=== PATIENT | female | born 1995 | race Caucasian/White ===

== ENCOUNTER 2023-11-15 23:03 | Emergency (ER) | payer OTHER, SELFPAY ==
[2023-11-15 23:05] VITALS: BP 144/94; PULSE 94; RESP 16; TEMP 36.8; O2SAT 100
--- NOTE | 2023-11-15 23:42 | ED.DENTAL ---
HPI - Dental/Oral General Chief complaint: Dental/Oral <LOU Goddard Last Filed: 11/16/23 00:22> Stated complaint: right side facial swelling and pain <LOU Goddard Last Filed: 11/16/23 00:22> Time Seen by Provider: 11/15/23 23:16 <Tito Boyd PA-C - Last Filed: 11/16/23 00:22> Source: patient <LOU Goddard Last Filed: 11/16/23 00:22> Mode of arrival: ambulatory <Tito Boyd PA-C - Last Filed: 11/16/23 00:22> Limitations: no limitations <LOU Goddard Last Filed: 11/16/23 00:22> History of Present Illness HPI Narrative: This is a 28-year-old female who presents to the ED for chief complaint of right-sided dental/facial pain beginning earlier this evening. Patient reports that she had noticed some swelling on the right side associated with pain to right upper dentition. States she took Tylenol around 2100 with minimal relief. Denies fevers, chills, drooling, trismus, dysphagia. <Tito Boyd PA-C - Last Filed: 11/16/23 00:22> Related Data Allergies/adverse reactions: Allergies Allergy/AdvReac Type Severity Reaction Status Date / Time No Known Allergies Allergy Verified 11/15/23 23:12 <Tito Boyd PA-C - Last Filed: 11/16/23 00:22> Review of Systems Review of Systems: All systems as dictated in HPI <LOU Goddard Last Filed: 11/16/23 00:22> PMFSH Social History Social History: Social History Smoking status: Never smoker <LOU Goddard Last Filed: 11/16/23 00:22> Exam Narrative: GENERAL: Well-appearing, well-nourished, and in no acute distress. HEAD: Normocephalic, atraumatic. EYES: PERRLA and EOMI. ENT: Missing right lower premolar. Several minor caries noted to the right upper and right lower molars. No discrete abscess identified. No drooling. No trismus. Floor of the mouth intact. Nares clear, no rhinorrhea or epistaxis. Mucous membranes moist. Oropharynx without tonsillar hypertrophy exudate or other lesions. NECK: Supple. No adenopathy or masses. CHEST: No respiratory distress. Clear to auscultation. No wheezes rales or rhonchi HEART: Regular rate and rhythm. No murmur heard. Normal peripheral pulses. ABDOMEN: Soft, nontender, nondistended, normal active bowel sounds. MSK: Normal range of motion. No edema. SKIN: Warm, dry, no rash. NEURO: Alert and oriented x3. No focal deficits. PSYCH: Normal mood and affect. <Tito Boyd PA-C - Last Filed: 11/16/23 00:22> Course [employer]IST/PA Physician Supervision I agree with midlevel documentation; I performed the medical decision making component of this evaluation. <Rolanda Oviedo MD - Last Filed: 11/16/23 01:05> Vital Signs Vital signs: Vital Signs Temperature 98.3 F 11/15/23 23:05 Pulse Rate 94 11/15/23 23:05 Respiratory Rate 16 11/15/23 23:05 Blood Pressure 144/94 H 11/15/23 23:05 Pulse Oximetry 100 11/15/23 23:05 Oxygen Delivery Room Air 11/15/23 23:05 Temperature 98.3 F 11/15/23 23:05 Pulse Rate 94 11/15/23 23:05 Respiratory Rate 16 11/15/23 23:05 Blood Pressure 144/94 H 11/15/23 23:05 Pulse Oximetry 100 11/15/23 23:05 Oxygen Delivery Room Air 11/15/23 23:05 <Tito Boyd PA-C - Last Filed: 11/16/23 00:22> Vital Signs Temperature 98.3 F 11/15/23 23:05 Pulse Rate 94 11/15/23 23:05 Respiratory Rate 16 11/15/23 23:05 Blood Pressure 144/94 H 11/15/23 23:05 Pulse Oximetry 100 11/15/23 23:05 Oxygen Delivery Room Air 11/15/23 23:05 Temperature 98.3 F 11/15/23 23:05 Pulse Rate 94 11/15/23 23:05 Respiratory Rate 16 11/15/23 23:05 Blood Pressure 144/94 H 11/15/23 23:05 Pulse Oximetry 100 11/15/23 23:05 Oxygen Delivery Room Air 11/15/23 23:05 <Rolanda Oviedo MD - Last Filed: 11/16/23 01:05> MDM - Dental/Oral MDM Narrative Medical decision making narrative: This is a 28-year-old female who presents to the ED wi
[2023-11-15] MEDS: AMOXICILLIN/CLAVULANATE K 875-125 MG TAB 1 TABLET PO (23:54)
[2023-11-15] MEDS: KETOROLAC 30 MG/ML VIAL (*BKC) IM (23:54)
== END 2023-11-15 23:57 | disposition home or self-care (01) ==
PROVIDERS: Emergency Provider Physician Assistant
DX: K02.9 Dental caries, unspecified (principal)
CPT/HCPCS: 96372; 99283; A9270; J1885

== ENCOUNTER 2023-12-13 19:01 | Emergency (ER) | payer OTHER, SELFPAY ==
[2023-12-13 19:02] VITALS: BP 134/85; PULSE 85; RESP 20; TEMP 36.4; O2SAT 98
--- NOTE | 2023-12-13 19:24 | ED.DENTAL ---
HPI - Dental/Oral General Chief complaint: Dental/Oral Stated complaint: tooth pain Time Seen by Provider: 12/13/23 19:09 History of Present Illness HPI Narrative: Patient is a 20-year-old female who presents ER with 3 days of dental pain. Radiating to left ear. Worse with chewing. No drainage in the mouth. No fevers or chills or sweats. Cannot see her dentist until the end of the month. No improvement with Tylenol or ibuprofen. Related Data Allergies Allergy/AdvReac Type Severity Reaction Status Date / Time No Known Allergies Allergy Verified 12/13/23 19:01 Review of Systems Constitutional: Constitutional: Reports no additional constitutional complaints ENT: Reports system reviewed and no additional complaints, except as documented PMFSH Past Medical History Medical History (Updated 12/13/23 @ 19:38 by Estiven Hutchinson MD) Healthy female adult Social History Social History Smoking status: Never smoker Exam Narrative: GENERAL: Well-appearing, well-nourished, and in no acute distress. HEAD: Normocephalic, atraumatic. ENT: Mucous membranes moist. mild tenderness near tooth 16. No facial swelling. Tolerating oral secretions. NECK: Supple. NEURO: Alert and oriented x3. PSYCH: Normal mood and affect. Course Course Emergency Course: Discharged with Augmentin and [place]. Follow-up with dentist. Vital Signs Vital signs: Vital Signs Temperature 97.5 F L 12/13/23 19:02 Pulse Rate 85 12/13/23 19:02 Respiratory Rate 20 12/13/23 19:02 Blood Pressure 134/85 12/13/23 19:02 Pulse Oximetry 98 12/13/23 19:02 Oxygen Delivery Room Air 12/13/23 19:02 Temperature 97.5 F L 12/13/23 19:02 Pulse Rate 85 12/13/23 19:02 Respiratory Rate 20 12/13/23 19:02 Blood Pressure 134/85 12/13/23 19:02 Pulse Oximetry 98 12/13/23 19:02 Oxygen Delivery Room Air 12/13/23 19:02 Discharge Plan Discharge Clinical Impression: Toothache Patient Disposition: Home, Self-Care Condition: Stable Instructions: Antibiotic Form, Toothache (ED) Additional Instructions: Return the ER if you have worsening pain, you cannot keep down food/water/ medication, you have fever over 104? F, or you have additional concerns. Prescriptions: New hydrocodone-acetaminophen 5-325 mg tablet 1 tablet PO Q6H PRN (Reason: pain) Qty: 10 0RF amoxicillin-pot clavulanate 875-125 mg tablet 1 tablet PO Q12H Qty: 20 0RF No Action amoxicillin-pot clavulanate 875-125 mg tablet 1 tablet PO Q12H Qty: 10 0RF Follow-up/Referrals: Dental Referral Line [Outside] - 1 Week UNKNOWN,DOCTOR [Non-Staff] -
== END 2023-12-13 19:58 | disposition home or self-care (01) ==
PROVIDERS: Emergency Provider Emergency Medicine; PCP Internal Medicine
DX: K08.89 Other specified disorders of teeth and supporting structures (principal)
CPT/HCPCS: 99283

== ENCOUNTER 2025-04-18 13:52 | Observation (INO) | payer MEDICAID, SELFPAY ==
[2025-04-18] VITALS (8 sets, daily range): BP systolic 129–135; BP diastolic 75–89; PULSE 90–113; RESP 20–29; TEMP 36.7–36.9; O2SAT 98–100; BMI 30.4
--- NOTE | ~2025-04-18 | CT_ITS ---
EXAMINATION: CT facial bones w con COMPARISON: None HISTORY: Evaluation for dental abscess TECHNIQUE: Axial images were obtained with IV contrast. Sagittal, coronal reconstruction images were obtained from the axial views. Omnipaque 370, [address] scan performed using dose optimization techniques including the following automated exposure control; adjustment of mA and/or kV; use of iterative reconstruction technique. Automatic exposure control was used to reduce radiation dose. Permanent radiation dose record is archived to PACS. FINDINGS: The nasal bones are intact. Anterior maxillary sinus chaudhary, zygomatic arches and temporomandibular joints intact. Orbital floors and medial orbits are intact. Right maxillary sinus mucous retention cyst 2 x 2 cm. The visualized brain parenchyma appears unremarkable. Visualized optic globes are unremarkable. There is no thickening of the prevertebral space or asymmetry of the airway. The visualized submandibular and parotid glands unremarkable. No gross thyroid nodules. No lymphadenopathy. There is no gross subcutaneous stranding or soft tissue abscess. There are some prominent right paranasal submandibular lymph nodes noted. There is dental disease most marked involving the mandible bilaterally IMPRESSION: There is no dental soft tissue abscess identified. There is however significant dental disease and follow-up is suggested to assess as clinically warranted. Reviewed, dictated and finalized at location A.
--- OUTSIDE RECORDS SUMMARY | 2025-04-18 13:54 | XMS_ITS | Clinical Summary ---
Author Organization [facility] Address [address] [place] [address] Care Team Providers Care Vending Attendant Name Role Phone Lamont Pete MD Primary Care Provider Cande Farooq MD Unavailable [phone] Allergies No known active allergies Medications etonogestrel (NEXPLANON) 68 mg implantIndication s: Contraception Active Contour Next Test Strips stripIndications: type 1 diabetes mellitus TEST BLOOD SUGAR 4-6 TIMES DAILY. USE WITH INSULIN PUMP COMPATIBLE GLUCOMETER. THE CONTOUR LINK BLOOD GLUCOSE METER IS THE ONLY METER THAT IS FDA APPROVED FOR USE WITH THE [employer] 670G SYSTEM. 200 strip 5 05/25/20 22 Active blood-glucose sensor (Dexcom G6 Sensor) deviceIndications :type 2 diabetes mellitus 1 Device continuously Use to check glucose level continuously; change every 10 days. E10.65 9 each 3 08/29/19 23 Active Additional Information Patient not taking.Reported on 10/16/2023 blood-glucose transmitter (Dexcom G6 Transmitter) deviceIndications :type 2 diabetes mellitus 1 Device continuously USE DEVICE CONTINUOUSLY; change every 90 days. E10.65 1 each 08/29/19 23 Active Additional Information Patient not taking.Reported on 10/16/2023 ziprasidone (GEODON) 40 mg capsule Take by mouth daily Patient will start once the 20mg is gone 11/12/19 23 Active albuterol HFA (PROVENTIL HFA,VENTOLIN HFA,PROAIR HFA) 90 mcg/actuation inhaler Inhale 2 puffs every 6 (six) hours as needed for wheezing 07/03/20 23 Active Additional Information Patient not taking.Reported on 10/16/2023 insulin lispro (HumaLOG) 100 unit/mL vial for injection INJECT 133 UNITS UNDER THE SKIN DAILY, MAX DOSE OF INSULIN PUMP THERAPY 40 mL 4 12/13/19 24 Active escitalopram (LEXAPRO) 10 mg tablet TAKE 1 TABLET BY MOUTH EVERY DAY AT NIGHT 90 tablet 1 10/26/19 25 Active busPIRone (BUSPAR) 5 mg tablet TAKE 1 TABLET BY MOUTH TWICE A DAY 180 tablet 1 10/26/19 25 Active Hospital, Clinic, or Other Facility Administered Medication Ordered Dose Route Frequency Start Date End Date Status etonogestreL (NEXPLANON) implant 68 mgIndications:Pregna ncy Contraception 68 mg subderm Continuous (implanted device) 11/04/2022 11/03/2025 Active Active Problems Problem Noted Date Diagnosed Date Cellulitis and abscess of right leg 10/16/2023 Assessment & Plan (10/16/2023 1:51 PM CDT): -acute, improving -patient first noticed bump on back of right leg near knee 10 days ago and reported to emergency department on 10/08/2023 for evaluation of bump -patient was given a 10 day course of Keflex for treatment of cellulitis with abscess -patient reports since starting the antibiotics the bump has started to drain, but she does feel that it is improving -patient reports the bump is less painful and less red -encourage patient to continue antibiotic course and reiterated importance of finishing all of the antibiotic -instructed patient on proper wound care of abscess -encourage patient to follow-up if abscesses not improved after taking whole antibiotic course Overweight with body mass in dex (BMI) of 27 to 27.9 in adult 10/16/2023 Assessment & Plan (10/16/2023 1:45 PM CDT): Wt Readings from Last 3 Encounters: 10/16/23 86 kg (189 lb 11.2 oz) 10/08/23 72.6 kg (160 lb) 07/03/23 90.7 kg (200 lb) Body mass index is 32.55 kg/m . -Weight gain noted -Discussed recommendations for exercise at least 30 minutes moderate to vigorous exercise most days of the week. (minimum 150 minutes weekly) -Discussed importance of well-balanced diet. Diarrhea 05/24/2023 Assessment & Plan (05/24/2023 4:49 PM CDT): Recommend use of OTC imodium. Increase fluid intake and bland diet. If symptoms worsen or blood sugar continues to rise recommend in person evaluation. Patient verbalized understanding and agreed to plan of care at this time. Borderline personality disorder 11/22/2021 Assessment & Plan (11/22/2021 10:05 AM CDT): Going for cognitive behavioral therapy Will start buspar 5 mg twice a day for the anxiety If no improvement can consider increasing to 3x/day F/u in 1 month Mixed diabetic hyperlipidemi a associated with type 1 diabetes mellitus 12/14/2020 Assessment & Plan (02/28/2023 4:34 PM CDT): This is a chronic condition which is not at goal of LDL less than 70 not on statin therapy- childbearing age. Encouraged to eat healthy, include fresh fruits and vegetables daily and avoid eating fried foods more than once per week. Encouraged to take medications as prescribed. Assessment & Plan (11/28/2022 4:14 PM CDT): This is a chronic condition which is not at goal of LDL less than 70 not on statin therapy Encouraged to eat healthy, include fresh fruits and vegetables daily and avoid eating fried foods more than once per week. Encouraged to take medications as prescribed. Assessment & Plan (08/29/2022 4:04 PM MANAGER OF IT): This is a chronic condition which is not at goal of less than 70. Personally reviewed lipid panel/LDL -112, not on statin- childbearing age. Encouraged to eat healthy, include fresh fruits and vegetables daily and avoid eating fried foods more than once per week. Assessment & Plan (05/25/2022 4:44 PM CDT): This is a chronic condition which is not at goal. Goal is less than 70. Personally reviewed lipid panel/LDL -112, not on statin- childbearing age. goal of less than 70 Encouraged to eat healthy, include fresh fruits and vegetables daily and avoid eating fried foods more than once per week. Assessment & Plan (02/21/2022 3:16 PM CDT): This is a chronic condition which is not at goal. Goal is less than 70. Personally reviewed lipid panel/LDL -112, currently not on statin, not at goal of less than 70 Encouraged to eat healthy, include fresh fruits and vegetables daily and avoid eating fried foods more than once per week. Childbearing age. No statin therapy. Assessment & Plan (11/01/2021 12:30 PM CDT): This is a chronic condition which is not at goal. Goal is less than 70. Personally reviewed lipid panel/LDL -112, currently not on statin, not at goal of less than 70 Encouraged to eat healthy, include fresh fruits and vegetables daily and avoid eating fried foods more than once per week. Childbearing age. No statin therapy. Assessment & Plan (08/03/2021 11:10 AM MANAGER OF IT): This is a chronic condition which is not at goal. Goal is less than 70. Personally reviewed lipid panel/LDL -92, currently not on statin, not at goal of less than 70 Encouraged to eat healthy, include fresh fruits and vegetables daily and avoid eating fried foods more than once per week. Please take medications as prescribed. Assessment & Plan (06/22/2021 11:42 AM MANAGER OF IT): This is a chronic condition which is not at goal. Goal is less than 70. Personally reviewed lipid panel/LDL -92, currently not on statin, not at goal of less than 70 Encouraged to eat healthy, include fresh fruits and vegetables daily and avoid eating fried foods more than once per week. Please take medications as prescribed. Assessment & Plan (03/18/2021 9:18 AM CDT): This is a chronic condition which is not at goal. Goal is less than 70. Personally reviewed lipid panel/LDL -92, currently not on statin, not at goal of less than 70 Encouraged to eat healthy, include fresh fruits and vegetables daily and avoid eating fried foods more than once per week. Please take medications as prescribed. Assessment & Plan (12/14/2020 8:55 PM CDT): This is a chronic condition which is at goal. Goal is less than 70. Personally reviewed lipid panel/LDL - 107 (2018), currently not on statin, not at goal of less than 70 Encouraged to eat healthy, include fresh fruits and vegetables daily and avoid eating fried foods more than once per week. Please take medications as prescribed. Repeat lipid panel. [employer] 670 G Insulin pump in place 1 Overview (03/02/2023): Medtronic 670G- can upgrade on 10/21. Assessment & Plan (02/28/2023 4:30 PM CDT): This is a chronic condition which is improving, but not at goal. Download reviewed. Type of insulin pump- [employer] 670 G Pump settings : Basal -0000-1.3, 0700 1.85, 2100-1.3 IC -5 ISF -25 Active insulin time 3hrs. TARGET GLUCOSE- changed to 100 to 120 Avg BG - 304+/- 68 Avg Total daily insulin-47 units Avg daily basal -39 units (82%) Avg daily bolus -8.5 units (18%) Discussed upgrading to 780 Medtronic insulin pump once it is available. She is in agreement with this plan. She is bolusing 0-2 times per day. Elevation in A1c is due to lack bolusing. Encouraged to bolus. Assessment & Plan (11/28/2022 4:17 PM CDT): This is a chronic condition which is improving, but not at goal. Download reviewed. Type of insulin pump- [employer] 670 G Pump settings : Basal -0000--1.3, 0700 1.85, 2100-1.3 IC -5 ISF -25 Active insulin time 3hrs. TARGET GLUCOSE- changed to 100 to 120 Avg BG - 307+/- 60 Avg Total daily insulin-80 units Avg daily basal -39 units (49%) Avg daily bolus -41 units (51%) . Improvement in A1c with improvement in bolusing. Discussed upgrading to 780 Medtronic insulin pump once it is available. She is in agreement with this plan. She is wearing a Dexcom 6 sensor however we are not connected so I was not able to obtain a download Assessment & Plan (08/29/2022 4:06 PM MANAGER OF IT): This is a chronic condition which is improving but not at goal. Download reviewed. Type of insulin pump- [employer] 670 G with Humalog 05-12-22 to 05-25-2022 Basal 0000-1.30, 8630-8307-1.85, 2100- 1.30 IC -5 ISF -25 Active insulin time 3hrs. TARGET GLUCOSE 80-150 Avg BG 303 or -63mg/dl Avg Total daily insulin-48 units Avg daily basal - 39 units (81%) Avg daily bolus -9 units (19%) 100% manual. Interpretation: Worsening A1c due to lack of sensor and bolusing. Encouraged to boluses 3-4 times/day. In manual mode. Change in insurance will reorder Dexcom. Having a sensor makes a difference in her blood sugar control Assessment & Plan (05/25/2022 4:48 PM CDT): This is a chronic condition which is improving but not at goal. Download reviewed. Type of insulin pump- [employer] 670 G with Humalog 05-12-22 to 05-25-2022 Basal 0000-1.30, 2950-6921-1.85, 2100- 1.30 IC -5 ISF -25 Active insulin time 3hrs. TARGET GLUCOSE 80-150 Avg BG 265 or -129mg/dl BG readings - 0.7 carbs- 13 +or- 23 Avg Total daily insulin-71units Avg daily basal - 39 units (55%) Avg daily bolus -32 units (45%) 100% manual. Interpretation: improved bolusing. Encouraged to continue with boluses 4 times/day. In manual mode. Wearing Dexcom sensor- Assessment & Plan (02/21/2022 3:17 PM CDT): This is a chronic condition which is worsening, not at goal with hypoglycemia. Download reviewed. Type of insulin pump- [employer] 670 G with Humalog Basal 0000-1.30, 2319-8238-1.85, 2100- 1.30 IC -5 ISF -25 Active insulin time 3hrs. TARGET GLUCOSE 80-150 Avg BG 265 or -129mg/dl BG readings - 0.7 carbs- 13 +or- 23 Avg Total daily insulin-38.7units Avg daily basal - 37.7 units (100%) Avg daily bolus -0units (0%) 100% manual. Interpretation: Lack of bolus. Strongly encouraged to bolus. In manual mode. Not wearing a sensor- Assessment & Plan (11/01/2021 12:29 PM CDT): This is a chronic condition which is worsening, not at goal with hypoglycemia. Download reviewed. Type of insulin pump- [employer] 670 G with Humalog Basal 0000-1.30, 5088-9409-1.85, 2100- 1.30 IC -5 ISF -25 Active insulin time 3hrs. TARGET GLUCOSE 80-150 Avg BG 265 or -129mg/dl BG readings - 0.7 carbs- 13 +or- 23 Avg Total daily insulin-42.6units Avg daily basal - 37.7 units (88%) Avg daily bolus - 4.9units (12%) 100% manual. Interpretation: Lack of bolus. Strongly encouraged to bolus. Not wearing a sensor- lack of insurance coverage. Contour Next meter link with insulin pump. Assessment & Plan (08/03/2021 11:30 AM MANAGER OF IT): This is a chronic condition which is worsening, not at goal with hypoglycemia. Download reviewed. Type of insulin pump- [employer] 670 G with Humalog Basal 0000-1.10, 0230-1.30, 3882-0307-1.85, 1900- 1.40 IC -5 ISF -25 Active insulin time 3hrs. TARGET GLUCOSE 80-150 Avg BG 293 or -145 mg/dl BG readings - 0.4 carbs- 2+ or -8 Avg Total daily insulin-39.9units Avg daily basal - 37.8 units (95%) Avg daily bolus - 2.1units (5%) 100% manual. Interpretation: Lack of bolus. Strongly encouraged to bolus. Encouraged to wear sensor. States she found a box of sensors and will start wearing it again. Assessment & Plan (06/22/2021 11:46 AM MANAGER OF IT): This is a chronic condition which is worsening, not at goal with hypoglycemia. Download reviewed. Type of insulin pump- [employer] 670 G with Humalog Basal 0000-1.10, 0230-1.30, 4693-3905-1.85, 1900- 1.40 IC -5 ISF -25 Active insulin time 3hrs. TARGET GLUCOSE 80-150 Avg BG 333+ or - 88 mg/dl BG readings - 4 carbs- 4 + or -13 Avg Total daily insulin-38.4units Avg daily basal - 37.8 units (98%) Avg daily bolus - 0.6units (2%) 100% manual. Interpretation: Lack of bolus. Strongly encouraged to bolus. Does not have sensor supplies. Will contact Bela underwood for re education on insulin pump without a sensor. Assessment & Plan (03/18/2021 9:24 AM CDT): This is a chronic condition which is worsening, not at goal with hypoglycemia. Download reviewed. Type of insulin pump- [employer] 670 G with Humalog Pump settings adjusted to reduce the 0500 hypoglycemic events. Basal 0000-1.10, 0230-1.30, 0788-7589-1.85, 1900- 1.40 IC -5 ISF -25 Active insulin time 3hrs. TARGET GLUCOSE 80-150 Avg BG 227 + or - 64 mg/dl BG readings - 222 +or- 59 mg/dl Avg daily carbs - not entered. Avg Total daily insulin-37.9units Avg daily basal - 37.9 units (100%) Avg daily bolus - 0.0units (never) Auto basal/basal amount (per day) 37.9% units. Interpretation: Lack of bolus. Encouraged to bolus. Does not have sensor supplies or test strips. Will order Dexcom Sensor. Melony Lainez from [employer] contacted for help in getting pump supplies covered. Assessment & Plan (12/14/2020 9:10 PM CDT): This is a chronic condition which is improving, but not at goal. Download reviewed. Type of insulin pump- [employer] 670 G Pump settings adjusted: Basal 0000-1.20, 0230-1.30, 7617-0120-1.85, 1900- IC -5 ISF -25 Active insulin time 3hrs. TARGET GLUCOSE 80-150 Avg BG 227 + or - 64 mg/dl BG readings - 222 +or- 59 mg/dl Avg daily carbs - not entered. Avg Total daily insulin-36.5 units Avg daily basal - 36 units (99%) Avg daily bolus - 0.5 units (1%) Auto basal/basal amount (per day) 36 units (99%) Interpretation: Lack of bolus. Encouraged to bolus and stay on auto mode. Using auto mode-0% per download. Nonspecific reaction to tube rculin skin test without active tuberculosis 07/04/2019 Assessment & Plan (07/04/2019 8:39 AM MANAGER OF IT): CXR ordered for further evaluation of indeterminate tuberculosis screening test. Work forms filled out in accordance of test findings and ruling out concerns of any communicable diseases. 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 Certainly if latent TB and CXR negative, there is no concern of communicable diseases. Aforementioned, work forms filled out in accordance of clinical exam and test results findings Assessment & Plan (04/27/2018 9:00 AM CDT): Forms filled out today from floor physical examination. TB test was administered office today with PPD we will follow-up on Monday for PPD reading any for additional management to which since all vaccinations are up-to-date and physically she is of well health for employment, will release sign forms any PPD reading on monday Granuloma annulare 07/28/2017 Assessment & Plan (07/28/2017 8:30 AM MANAGER OF IT): Recommended triamcinolone cream to apply twice daily to this lesion looks allergic in nature there is some mild scaling this could be more of a psoriatic but it is not necessarily on a joint, but we'll keep this diagnosis in mint. We will keep a close eye on improvement in follow-up in 5 days to recheck as well Adult ADHD 05/23/2017 Assessment & Plan (08/10/2018 2:27 PM MANAGER OF IT): Refill Adderall 15 mg q.day after checking the [facility] prescription monitoring program. Pt was strongly encouraged to keep follow-up visit here in a month certainly returning every month in order to obtain printed scripts Assessment & Plan (07/06/2018 3:26 PM MANAGER OF IT): Cautiously increasing patient's adderall XR to 15mg from 10 mg daily. Encourage patient to consider counseling to discuss other issues and also another consideration, which was verbally discussed in office today, was the possibility bipolar disorder considering her varying moods and notable aggression. We will readdress this at our office visit if there is any notable worsening in jenny sx/aggression after increasing dosages of medication Type 1 diabetes mellitus with hyperglycemia 05/01 Assessment & Plan (02/28/2023 4:33 PM CDT): This is a chronic condition which is out of control, worsening not at goal of less than 7%. Personally reviewed most recent A1c - Lab Results Component Value Date HGBA1C 9.6 02/28/2023 Personally reviewed POC blood sugar- not at goal 80-180 Lab Results Component Value Date POCGLU 263 02/28/2023 Medication- Continue [employer] 670 G with humalog insulin. Basal 0000-1.3, 9705-5281-1.85, 2100- 1.30, IC -5, ISF -25, Active insulin time 3hrs. Target 100-120 Monitor blood sugar 4 times a day. Continuously with dexcom 6 sensor. Encouraged annual eye exam. Monofilament foot exam completed. protective senses intact Personally reviewed CMP eGFR- 123 Kidney function- normal Urine microalbumin/creatinine ratio - at goal <30 not treated with JOSAFAT/ARB B/P today- at goal of <140/90. Personally reviewed lipid panel. Not at Goal of less than 70. Not on statin therapy/childbearing age Assessment & Plan (11/28/2022 4:14 PM CDT): This is a chronic condition which is poorly controlled, improving not at goal of less than 7%. Personally reviewed most recent A1c - Lab Results Component Value Date HGBA1C 8.8 (H) 11/11/2022 Personally reviewed POC blood sugar- not at goal 80-180 Lab Results Component Value Date POCGLU 152 11/28/2022 Medication- Continue Medtronic 670 G insulin pump and Dexcom 6 sensor Monitor blood sugar continuously with Dexcom 6 sensor. Encouraged annual eye exam. last dilated eye exam was [facility] Monofilament foot exam completed. protective senses intact Urine microalbumin/creatinine ratio - at goal <30 Personally reviewed CMP eGFR-123 Kidney function- normal B/P today-at goal of <140/90. Personally reviewed lipid panel. Not at Goal of less than 70. Childbearing age not on statin therapy Assessment & Plan (08/29/2022 4:04 PM MANAGER OF IT): This is a chronic condition which is worsening, inadequately controlled not at goal of less than 7%. Personally reviewed A1c today-9.2%, not at goal less than 7% POC fingerstick blood sugar- 220 Not at goal of 80-180 Medication- Medtronic 670 G insulin pump with dexcom sensor Monitor blood sugar continuously with sensor. Encouraged annual eye exam. Completed 11.20- [facility]. Monofilament foot exam completed, protective senses intact Urine microalbumin/creatinine ratio - <10, normal, not on JOSAFAT/ARB, goal <30 Personally reviewed labs: CMP, GFR-128. Kidney function- normal B/P today- at goal blood pressure is <140/90. Not on Josafat or Arb Personally reviewed LDL - 112. not on statin- childbearing age. not at goal of less than 70 No history of macrovascular disease - CVA, [place]. Assessment & Plan (05/25/2022 4:43 PM CDT): This is a chronic condition which is improving but not at goal. Personally reviewed A1c today-8.3%, not at goal less than 7% POC fingerstick blood sugar- 220 Not at goal of 80-180 Medication- Medtronic 670 G insulin pump with dexcom sensor Monitor blood sugar continuously with sensor. Encouraged annual eye exam. Completed 11.20- [facility]. Monofilament foot exam completed, protective senses intact Urine microalbumin/creatinine ratio - <10, normal, not on JOSAFAT/ARB, goal <30 Personally reviewed labs: BUN-10, creatinine- 0.58, GFR-128. Kidney function- normal B/P today- at goal. not on JOSAFAT/ARB. At goal blood pressure is <140/90 Personally reviewed LDL - 112. not on statin- childbearing age. not at goal of less than 70 No history of macrovascular disease - CVA, [place]. Assessment & Plan (02/21/2022 3:15 PM CDT): This is a chronic condition which is worsening and not at goal. Personally reviewed A1c today-12.4%, not at goal less than 7% POC fingerstick blood sugar- 537. She states she has been monitoring her blood sugar but none are documented. Medication- Medtronic 670 G insulin pump with out sensor Monitor blood sugar continuously with sensor. encouraged to wear her sensor. She was scheduled to meet with Bela Underwood from [facility] but missed the appt. She is requesting to reschedule. Encouraged annual eye exam. Completed 11.20- [facility]. Monofilament foot exam completed, protective senses intact Urine microalbumin/creatinine ratio - <10, normal, not on JOSAFAT/ARB, goal <30 Personally reviewed labs: BUN-10, creatinine- 0.58, GFR-128. Kidney function- normal B/P today- 126/80, currently not on JOSAFAT/ARB. At goal blood pressure is <140/90 and as close to 120/80 as possible. Personally reviewed LDL - 112 currently not on statin, not at goal of less than 70 No history of macrovascular disease - CVA, [place]. Assessment & Plan (11/01/2021 12:22 PM CDT): This is a chronic condition which is improving but not at goal. Personally reviewed A1c today-10.6%, not at goal less than 7% Medication- Medtronic 670 G insulin pump with out sensor Monitor blood sugar continuously with sensor. encouraged to wear her sensor. Encouraged annual eye exam. Completed 11.20- [facility]. Monofilament foot exam completed, protective senses intact Urine microalbumin/creatinine ratio - <10, normal, not on JOSAFAT/ARB, goal <30 Personally reviewed labs: BUN-10, creatinine- 0.58, GFR-128. Kidney function- normal B/P today- 122/74, currently not on JOSAFAT/ARB. At goal blood pressure is <140/90 and as close to 120/80 as possible. Personally reviewed LDL - 112 currently not on statin, not at goal of less than 70 No history of macrovascular disease - CVA, [place]. Assessment & Plan (08/03/2021 11:28 AM MANAGER OF IT): This is a chronic condition which is not at goal. Personally reviewed A1c today-11.6%, not at goal less than 7% Medication- Medtronic 670 G insulin pump Monitor blood sugar continuously with sensor. encouraged to wear her sensor. Encouraged annual eye exam. Completed .20- [facility]. Monofilament foot exam completed, protective senses intact Urine microalbumin/creatinine ratio - <20, normal, not on JOSAFAT/ARB, goal <30 Personally reviewed labs: BUN-11, creatinine- 0.63, GFR-125. Kidney function- normal B/P today- 108/78, currently not on JOSAFAT/ARB. At goal blood pressure is <140/90 and as close to 120/80 as possible. Personally reviewed LDL - 92 currently not on statin, not at goal of less than 70 No history of macrovascular disease - CVA, [place]. Assessment & Plan (06/22/2021 11:42 AM MANAGER OF IT): This is a chronic condition which is worsening with reported hypoglycemia, not at goal. Personally reviewed A1c today-increased to 11.6%, not at goal less than 7% Medication- Medtronic 670 G insulin pump Monitor blood sugar continuously with sensor. out of insulin pump and sensor supplies Encouraged annual eye exam. Completed 11.20- [facility]. Monofilament foot exam completed, protective senses intact Urine microalbumin/creatinine ratio - <20, normal, not on JOSAFAT/ARB, goal <30 Personally reviewed labs: BUN-11, creatinine- 0.63, GFR-125. Kidney function- normal B/P today- 114/60, currently not on JOSAFAT/ARB. At goal blood pressure is <140/90 and as close to 120/80 as possible. Personally reviewed LDL - 92 currently not on statin, not at goal of less than 70 No history of macrovascular disease - CVA, [place]. Assessment & Plan (03/18/2021 9:17 AM CDT): This is a chronic condition which is worsening with reported hypoglycemia, not at goal. Personally reviewed A1c today-increased to 10%, not at goal less than 7% Medication- Medtronic 670 G insulin pump Monitor blood sugar continuously with sensor. out of insulin pump and sensor supplies Encouraged annual eye exam. Completed 20- [facility]. Monofilament foot exam completed, protective senses intact Urine microalbumin/creatinine ratio - <20, normal, not on JOSAFAT/ARB, goal <30 Personally reviewed labs: BUN-11, creatinine- 0.63, GFR-125. Kidney function- normal B/P today- 124/72 , currently not on JOSAFAT/ARB. At goal blood pressure is <140/90 and as close to 120/80 as possible. Personally reviewed LDL - 92 currently not on statin, not at goal of less than 70 No history of macrovascular disease - CVA, NC. Assessment & Plan (12/14/2020 8:51 PM CDT): This is a chronic condition which is improving, but not at goal. Personally reviewed A1c today-8.6%, not at goal less than 7% Medication- Medtronic 670 G insulin pump Monitor blood sugar continuously with sensor. Encouraged annual eye exam. Completed 11.20- [facility]. Monofilament foot exam completed, protective senses intact Urine microalbumin/creatinine ratio - needed unable to void currently not on JOSAFAT/ARB, goal <30 Personally reviewed labs: (10/08/20 care everywhere) BUN-11, creatinine- 0.82, GFR- >90. Kidney function- normal B/P today- 132/80 , currently not on JOSAFAT/ARB. At goal blood pressure is <140/90 and as close to 120/80 as possible. Personally reviewed LDL - 107 (2018), currently not on statin, not at goal of less than 70 No history of macrovascular disease - CVA, NC. Assessment & Plan (05/06/2020 9:59 AM CDT): Pt understands indications to call data recovery planner with ongoing elevations or certainly alert our office given elevations with acute infections. Cnt. To adjust bolus and basal insulin as necessary. Assessment & Plan (07/06/2018 3:19 PM MANAGER OF IT): Continue with humalog sliding scale adjustments as advised by data recovery planner. Encouraged to monitor glucose levels while acute ill. F/u with specialist as advised. Assessment & Plan (07/28/2017 8:31 AM MANAGER OF IT): I advised patient to keep a close eye on glucose as the hyperglycemic events that she is experiencing is likely due to the infection not clearing well with paronychia. I advised her to the dose her insulin appropriately per sliding scale and glucose levels will touch base regarding her diabetes control we see her here in 5 days and certainly if it remains elevated beyond clearance of infection, we will send her to her data recovery planner to manage further Assessment & Plan (07/25/2017 2:45 PM MANAGER OF IT): Given diabetes wll ask to get this re looked at frid. Watch sugar controll. And for signs of gettig worse. Assessment & Plan (07/06/2017 11:25 AM MANAGER OF IT): Patient self reports that her glucose levels are stable in the 80s which is her normal. Were prescribing corticosteroids to which I advised to keep a close eye on glucose levels along with her sliding scale Humalog to correlate with levels. If levels exceed 120-150 while on corticosteroids a total call our office Left knee injury 09/12/2016 Resolved Problems Problem Noted Date Diagnosed Date Resolved Date Functional diarrhea 05/24/2023 05/24/20 23 Right foot injury, initial encounter 07/04/2019 12/14/2020 Assessment & Plan (07/04/2019 8:39 AM MANAGER OF IT): Recommending x-ray D/T acute trauma causing onset of pain, bruising. If x-ray negative, does just appear to be mild soft tissue injury, essentially sprain, which I recommended RICE therapy in the interim. Further direction pending results of x- ray. Abscess of right axilla 04/15/201911/28 Assessment & Plan (04/19/2019 11:19 AM CDT): Abscess with successful I&D completed 2 days ago, dressing change provided today in clinic. She was encouraged to Cnt. With Bactrim, Keflex as prior advised pending results of wound culture which thus far has grown MRSA (which she has no Hx of) but awaiting for sensitivity report indicating need to exchange specialist. Wound care management was once again educated today in clinic, RTC here in 3 days to complete another dressing change. Wound care consultation was placed today for [facility] in hopes of getting current in the next week for remaining dressing changes. Assessment & Plan (04/17/2019 10:50 AM CDT): D/T multiple pocketing of furuncle, I&D procedure would not be successful in our clinic today. I did encourage Pt to present to ED for management. I did call over and speak to BETTY Stringer, at [facility] who was made aware of her arrival and pertinent medical history. Assessment & Plan (04/15/2019 3:37 PM CDT): Cnt. With 3 were remaining days of Bactrim adding on doxycycline for further coverage. I &D strongly advised, Pt declined this in clinic today concerned of the pain associated with procedure. I did consult surgery to discuss excision with any persistent infection or once treating infection outpatient. Application of heat, cleansing techniques were all advised in the interim. RTC in 4 days for re-evaluation. Cellulitis and abscess of leg 01/01/2019 04/15/2019 Assessment & Plan (01/07/2019 3:33 PM CDT): MRSA growth from culture w/ sensitivity to doxy. Gradual improvement with abx therapy. D/T complicated healing from DMI, recommending wound care clinic consult for debridement and monitoring. Continue doxy, adding on clindamycin until seeing wound care. Advised of using hibiclens twice daily and other abx topical creams/cleansing techniques. Assessment & Plan (01/01/2019 11:03 AM CDT): Notable infections suspected from possible spider bite. Treatment with doxycycline for coverage of both staph and strep, wound culture obtained, cleansing with Dial soap, application of warm compress to elicit drainage, F/U here in 6 days for re-evaluation and indications to F/U sooner present to ED with any worsening incident 70s antibiotics, fevers or chills, verses hyperglycemia all recommended Work note given excusing Pt for the next 2 days as requested Tetanus vaccination also updated today in office D/T suspicion of spider bite Periorbital dermatitis 12/25/201812/14 Assessment & Plan (12/25/2018 1:16 PM CDT): Mild periorbital dermatitis which appears to have mildly responded with OTC Benadryl. Pt was encouraged to start on tapering corticosteroids, apply ice, Cnt. P.r.n. Use of Benadryl. RTC here in 3 days for follow-up. Cnt. To monitor glucose levels for hyperglycemia secondary to corticosteroid therapy or indicating secondary infection from dermatitis. Thumb pain, right 07/19/2018 07/04/2019 Assessment & Plan (08/10/2018 2:29 PM MANAGER OF IT): Concerned of a possible tendinopathy/ tenosynovitis surrounding right them considering worsening pain and swelling with tila-syw-lskeyso NSAIDs, rest, ice and heat, and bracing. Pt also admits that there was very minimal improvement with use of prednisone, initially prescribed 1 month ago. X-ray was also negative and clinically it does appear as though she might have a tendinopathy. In moving forward MRI ordered of right hand along with consultation to hand specialist, Dr. Maloney per patient's request for further review Assessment & Plan (07/19/2018 9:24 AM MANAGER OF IT): Acute tenosynovitis verses possible sprain of MCP joint. I am encouraging her to move forward with x-ray to rule out acute concerns,RICE therapy, continue with NSAIDs for the next week until follow-up office visit. I did encourage oral color after x- rays completed and often if in the event this an acute, mild sprain of the joint in May often take 2-3 weeks for full healing and she should continue were some/wrist splint until full healing is noted along with weight limitations. Work note was provided. Will complete MRI and consult to Dr. Maloney or Dr. Cardenas if pain or range of motion worsens with management advised office Pharyngitis 07/06/2018 07/19/2018 Assessment & Plan (07/06/2018 3:17 PM MANAGER OF IT): Rapid strep and flu tests negative Acute URI 07/06/2018 08/04/2020 Assessment & Plan (05/06/2020 9:58 AM CDT): Telemedicine visit is suspicious of strep pharyngitis. Recommending amoxicillin 500 t.i.d. times 10 days, antipyretics, salt water gargles, humidifier or vaporizer use. Albuterol inhaler was also sent over D/T her concerns with bronchospasms advising her of proper use, S/Es. Pt was advised to not return to work until on antibiotics for at least 48 hours and noting improvement sx, afebrile w/o antipyretics given concerns of COVID at the time. Work note was generated sign to fax over to place of employment. Indications to follow back regarding condition provided. Assessment & Plan (07/06/2018 3:18 PM MANAGER OF IT): Recommended augmentin to take as prescribed with OTC probiotics. Pt was advised to use OTC antihistamines, increase fluids and humidification, and mucinex OTC for alleviate of congestion and cough. Indications to f/u in office given to patient BMI 30.0-30.9,adult 07/28/2017 07/19/20 Assessment & Plan (07/28/2017 8:30 AM MANAGER OF IT): Recommended patient to continue to increase heart healthy diet with adequate fruits, vegetables, and plenty of water along with mild-moderate daily exercise as tolerated. Paronychia of great toe, left 07/25/2017 08/03/2017 Assessment & Plan (07/28/2017 8:29 AM MANAGER OF IT): Continue on current dose of Augmentin adding on Cleocin 300 mg t.i.d. for 10 day course were going to see her here in 5 days to touch base and make sure that we are moving in the right direction regarding healing of wound/paronychia infection. I also advised her to take [id number]-lkizmic probiotics to assist with the side effects related to Cleocin certainly the beta-lactam with the Augmentin as well. I advised her to continue to soak in Epsom salts twice daily and keep it nice clean and dry with Dial soap and will follow up here in 5 days or sooner as needed Assessment & Plan (07/25/2017 2:42 PM MANAGER OF IT): Wash with dial type soap. Massage in antibiotic cream or ointment. Do twice a day. Oral antibiotics. Start probiotic for stomack. augmentin drug Rx. Body mass index (bmi) 33.0-33.9, adult 07/06/2017 08/10/2018 Acute costochondritis 07/06/20172017 Assessment & Plan (07/06/2017 11:21 AM MANAGER OF IT): Clinical presentation suggestive of a costochondritis without known etiology/trauma causing symptoms. I advised patient since she did not respond well to the NSAID [id number]-[id number] we will try little Medrol Dosepak to help break up the inflammation along with Flexeril 1 to 2 times a day only as needed today's today. Certainly I advised her stretching exercises, which were demonstrated office today, application of heat to help with pain alleviation as well. She is diabetic to which she has a monitor and sliding scale to which I advised to keep a close eye on glucose levels while in 6 day tapering corticosteroids which she verbalized understanding of. Will see her here in a week and certainly there is no improvement symptoms were going to complete some x-rays or other testing to determine other causes. Epidermal cyst of face 07/06/201707/06 Assessment & Plan (07/06/2017 11:26 AM MANAGER OF IT): Painful epidermal cyst on left tragus which was subsequently fine during assessment she noted that she has maybe had it here for the last few days but did know why she does have earrings and advised to keep a close eye on his at this time I&D would be not be effective as it's too hard and not superficial enough. If in the event that it persistent pain is getting worse will send her to Dermatology or plastic surgery to see about removal Laceration of right lower leg 01/17/2017 09/18/2018 Assessment & Plan (01/27/2017 9:23 AM CDT): Marked improvement with new tissue granulation. This is almost completely healed. She will continue current treatment regimen. She will contact me with any additional questions or concerns. She asked about medication to fade scar and was instructed to use otc mederma and to apply sun screen when outside. Assessment & Plan (01/17/2017 11:06 AM CDT): I recommend she wash the area with antibacterial soap once to twice daily. Apply a topical antibiotic Bactroban to the site. Cover loosely with a Band-Aid. Close follow-up here for repeat assessment in 10 days. She will contact me in the interim with absolutely any change in, worsening, or non improvement in her condition. Type 1 diabetes mellitus 08/07/201511/2019 Assessment & Plan (04/19/2019 11:20 AM CDT): Suboptimal hemoglobin A1c with recent A1c at 10.3, per chart review, insulin management was adjusted D/T this. I did encourage her to Cnt. With prior advised medication changes, monitor for signs of hyperglycemia given recent infection, and F/U with data recovery planner as scheduled. Assessment & Plan (04/17/2019 10:50 AM CDT): Stable, no notable elevations given worsening in infected right axilla abscess. Cnt. With current DM management, consistent carb diet, F/U with data recovery planner as scheduled. Further recommendations pending e.d. Evaluation Assessment & Plan (04/15/2019 3:37 PM CDT): Cnt. With current diabetic regimen as advised by data recovery planner. Cnt. To monitor for glucose levels with any notable elevation at or above 150 or signs of hyperglycemia to report office given acute infection. Assessment & Plan (01/07/2019 3:36 PM CDT): Glucose level steadily improving with treatment of infection, however I did encourage her to Cnt. To monitor while treating the infection as hyperglycemia does need to be corrected in call [facility]. Cnt. With current insulin adjustments as indicated by data recovery planner Assessment & Plan (01/01/2019 11:02 AM CDT): Hyperglycemia secondary to suspected infection. Adjust insulin dosage per sliding scale as advised by data recovery planner. I did encourage her to F/U with data recovery planner with any persistent hyperglycemia (after 2 days of abx) at or above 350, or suspect progressive infection Assessment & Plan (12/25/2018 1:15 PM CDT): Cnt. To monitor glucose levels while on tapering corticosteroids. Certainly correcting insulin per scale provided by data recovery planner. Pt was encouraged to call office with elevated glucose levels at or above 300. RTC here on Monday Immunizations Immunization Administration Dates Next Due DTaP 04/21/1999, 6,1995,05/08,1995 HPV, Quadrivalent 02/09/2007 HPV, Unspecified 01/10/2008,05/02/2007 Hep A, Adult 01/19/2009 Hep A, Pediatric 01/10/2008 Hep B Vaccine 1995,1995 Hep B, Adolescent or Pediatric 1995 HiB 04/08/1996,1995,1995 Hib (PRP-OMP) 1995 IPV 04/21/1999, 6,1995,03/07 Influenza, Quadrivalent, Spl it, Preservative Free, Intramuscular 06/16/2022,06/14/2021,07/03/2020 Influenza, Trivalent, IM (MDV) 06/22/2011,2006,06/02/2006 Influenza, Unspecified 10/16/2023(Deferr ed: Patient Refused),10/16/2023(Deferred: Patient Refused),06/04/2021(Deferred: Patient Refused),05/06/2020(Deferred: Patient Refused),07/04/2019(Deferred: Patient Refused),04/30/2019(Deferred: Patient Refused),04/30/2019(Deferred: Patient Refused),04/30/2019(Deferred: Patient Refused),04/19/2019(Deferred: Patient Refused),04/17/2019(Deferred: Patient Refused - not available),12/25/2018(Deferred: Patient Refused),04/30/2018(Deferred: Patient Refused),04/30/2018(Deferred: Patient Refused),04/30/2018(Deferred: Patient Refused) MMR 04/21/1999,04/08/1996 Meningococcal MCV4P (Menactra) 02/09/2007 Meningococcal Polysaccharide (Menomune) 03/15/2013 PPD TEST 04/27/2018 Tdap 01/01/2019,06/02/2006 Varicella 02/09/2007,04/20/1998 Medical History Medical History Date Comments Hx Other Medical index finger fr acture ADHD (attention deficit hyperactivity disorder) Diabetes (HCC) Right foot injury, initial encounter 07/04/2019 Periorbital dermatitis 12/25/2018 Family History Medical History Relation Name Comments Arthritis Other Cancer Other Hypertension Other Relation Name Status Comments Other Social History Tobacco Use Types Packs/Day Years Used Date Smoking Tobacco: Never Passive Smoke Exposure: Never Smokeless Tobacco: Never Tobacco Cessation:Counseling Given: Not Answered Alcohol Use Standard Drinks/Week Comments Yes 0 (1 standard drink = 0.6 oz pur e alcohol) AUDIT-C Answer Date Recorded Q1: How often do you have a drink containing alcohol? 4 or more times a week 07/03/2023 Q2: How many drinks containi ng alcohol do you have on a typical day when you are drinking? 1 or 2 3 Q3: How often do you have si x or more drinks on one occasion? Never 07/03/2023 PHQ-2 Answer Date Recorded PHQ-2 Total Score (If total score is 3 or more points, staff should administer the PHQ-9) 0 10/16/2023 Personal Safety Answer Date Recorded Have you ever been in or are you currently in a harmful physical or emotional relationship or is someone making you feel afraid or unsafe? Denies 10/08/2023 Comments No Sex and Gender Information Value Date Recorded Sex Assigned at Not on file Legal Sex Female 3:59 AM MANAGER OF IT Gender Identity Not on file Sexual Orientation Not on file Obstetrics History Para Term AB IAB SAB Ectopic Multiple Livin g Live Births 0 0 0 0 0 0 0 0 0 0 0 Last Filed Vital Signs Vital Sign Reading Time Taken Comments Blood Pressure 136/85 10/16/2023 12:41 PM CDT Pulse 73 10/16/2023 12:41 PM CDT Temperature 36.6 C (97.8 F) 10/08/2023 11:15 PM CDT Respiratory Rate 16 10/16/2023 12:41 PM CDT Oxygen Saturation 99% 10/16/2023 12:41 PM CDT Inhaled Oxygen Concentration - - Weight 86 kg (189 lb 11.2 oz) 10/16/2023 12:41 P M CDT Height 162.6 cm (5' 4.02) 10/16/2023 12:41 PM C DT Body Mass Index 32.55 10/16/2023 12:41 PM CDT Plan of Treatment Health Maintenance Due Date Last Done Comments Pneumococcal vaccine <65 (1 of 2 - PCV) 2014 Dilated Eye Exam 06/05/2022 06/05/2020, 12/2019, 02/17/2018 Hemoglobin A1C 08/31/2023 02/28/2023, 0410/2022, 08/29/2022, Additional history exists Albumin Creatinine Ratio, Urine 09/02/2023 09/02/2022, 08/03/2021, 12/16/2020 Lipid Panel 09/02/2023 09/02/2022, 0 10/2021, 12/16/2020, Additional history exists TSH Level 09/02/2023 09/02/2022, 0 10/2021, 12/16/2020 eGFR 09/02/2023 09/02/2022, 0 10/2021, 12/16/2020, Additional history exists Cervical Cancer Screening 10/07/2023 10/06/2022, Regular Well Visit/Exam 18-64 10/07/2023, 06/16/2022, 12/07/2020, Additional history exists Foot Exam 07/03/2024 07/03/2023, 05/31, 06/14/2021, Additional history exists Depression Screening 10/15/2024 10/16/2023, 07/03/2023, 09/13/2022, Additional history exists Influenza Vaccine (#1) 2025 2, 06/14/2021, 07/03/2020, Additional history exists DTaP/Tdap/Td Vaccine (8 - Td or Tdap) 01/01/2029 01/01/2019, 06/02/2006, 04/21/1999, Additional history exists Hepatitis B Screening Completed 1995 , 1995, 1995 Varicella Vaccines Completed 02/09/2007, 04/20/1998 HPV Vaccines Completed 01/10/2008, 09/2006, 02/09/2007 Hepatitis C Screening Completed 10/06/2022 Procedures Procedure Name Priority Date/Time Associated Diagnosis Comments POCT HEMOGLOBIN A1C Routine 02/28/2023 4 :06 PM CDT Type 1 diabetes mellitus with hyperglycemia (HCC) PAP WITH REFLEX TO HIGH RISK HPV Routine 10/06/2022 2:45 PM MANAGER OF IT Encounter for well woman exam with routine gynecological exam HEPATITIS PANEL, ACUTE Routine 10/06/2022 2:04 PM MANAGER OF IT STI (sexually transmitted infection) EGFR Routine 09/02/2022 7:47 AM MANAGER OF IT Type 1 diabetes mellitus with hyperglycemia (HCC) LIPID PANEL Routine 09/02/2022 7:47 AM MANAGER OF IT Type 1 diabetes mellitus with hyperglycemia (HCC) ALBUMIN CREATININE RATIO, URINE Routine 09/02/2022 7:47 AM MANAGER OF IT Type 1 diabetes mellitus with hyperglycemia (HCC) THYROID FUNCTION CASCADE Routine 09/02/2022 7:47 AM MANAGER OF IT Type 1 diabetes mellitus with hyperglycemia (HCC) DIABETIC EYE EXAM Routine 06/05/2020 DIABETES FOOT EXAM Routine 12/03/2019 from Last 3 Months or Most Recently Relevant to Health Maintenance Results * (ABNORMAL) POCT hemoglobin A1c (02/28/2023 4:06 PM CDT) Hemoglobin A1C, POC 9.6 % Blood 02/28/2023 4:06 PM CDT Iva Cline NP POINT OF CARE TEST ORDERABLES F inal Result * Pap with reflex to High Risk HPV (10/06/2022 2:45 PM MANAGER OF IT) CLINICAL INFORMATION: Sharita Pope Comment:Routine exam LMP Sharita Pope Comment:NEXPLANON Previous Pap Sharita Pope Comment:NONE GIVEN Prev. Bx Sharita Pope Comment:NONE GIVEN SOURCE: Sharita Pope Comment:Cervix, Endocervix Pap, specimen adequacy Sharita Pope Comment: Satisfactory for evaluation. Endocervical/transformation zone component present. HPV interp Sharita Pope Comment:Negative for intraep ithelial lesion or malignancy. COMMENTS Sharita Pope Comment: This Pap test has been evaluated with computer assisted technology. [facility] F[facility]agan Comment: DDS, CT(ASCP) CT screening location: [place] [address] [place] [id number] Comment Sharita Pope Comment: EXPLANATORY NOTE: The Pap is a screening test for cervical cancer. It is not a diagnostic test and is subject to false negative and false positive results. It is most reliable when a satisfactory sample, regularly obtained, is submitted with relevant clinical findings and history, and when the Pap result is evaluated along with historic and current clinical information. Thin prep 10/06/2022 2:45 PM MANAGER OF IT 10/07/2022 3:48 AM MANAGER OF IT Cande Farooq MD LAB CYTOLOGY ORDERABLES F inal Result [facility] [address] [place] [address] * Hepatitis panel, acute (10/06/2022 2:04 PM MANAGER OF IT) Hep A IgM NON-REACTI VE NON-REACT ANAM [facility] Comment: For additional information, please refer to http://[employer].in3Dgallery/faq/OWH051 (This link is being provided for informational/ educational purposes only.) HepBsAg NON-REACTI VE NON-REACT ANAM [facility] Hep B core IgM NON-REACTI VE NON-REACT ANAM [facility] Hep C Ab NON-REACTI VE NON-REACT ANAM [facility] SIGNAL TO CUT-OFF 0.07 <1.00 [facility] Comment: HCV antibody was non-reactive. There is no laboratory evidence of HCV infection. In most cases, no further action is required. However, if recent HCV exposure is suspected, a test for HCV RNA (test code 77347) is suggested. For additional information please refer to http://[employer].in3Dgallery/faq/SSZ00v8 (This link is being provided for informational/ educational purposes only.) Blood 10/06/2022 2:04 PM MANAGER OF IT 10/06/2022 2:06 PM MANAGER OF IT Narrative [facility] - 10/07/2022 3:33 PM MANAGER OF IT PATIENT UNABLE TO VOID; ADVISED TO RETURN FOR COLLECTION. Cande Farooq MD LAB MICROBIOLOGY - GENERA L ORDERABLES Final Result [facility] [id number] [id number] * eGFR (09/02/2022 7:47 AM MANAGER OF IT) eGFR 123 mL/min/1. 73 m2 [facility]) Comment: Interpretive Data Reference Interval Normal >/= 90 mL/min/1.73m2 Mildly decreased* 60 - 89 mL/min/1.73m2 Mildly to moderately decreased 45 - 59 mL/min/1.73m2 Moderately to severely decreased 30 - 44 mL/min/1.73m2 Severely decreased 15 - 29 mL/min/1.73m2 Kidney Failure < 15 mL/min/1.73m2 *Relative to young adult level Estimated glomerular filtration rate is determined by the 2020 CKD-EPI equation recommended by the National [employer] (A Unifying Approach to GFR Estimation: Recommendations of the NKF-ASK Task Force on Reassessing the Inclusion of Race in Diagnosing Kidney Disease, JASN 2020). The CKD-EPI equation should not be used for patients with unstable renal function and has not been validated in children and those over 70. Current interpretive data was last reviewed 2021. Blood 09/02/2022 7:47 AM MANAGER OF IT 09/02/2022 9:04 AM MANAGER OF IT Iva Cline NP LAB BLOOD ORDERABLES Final Resu lt Performing Organization Address City/[facility]/ZIP Co de Phone Number [facility] [facility]) 1 [facility] [place] [address] * TSH reflex to free T4 (09/02/2022 7:47 AM MANAGER OF IT) TSH 1.60 0.30 - 4.20 mcIUnit/mL [facility] ([place]) Blood 09/02/2022 7:47 AM MANAGER OF IT 09/02/2022 9:04 AM MANAGER OF IT Iva Cline PERSONAL LINES INSURANCE ADVISOR LAB BLOOD ORDERABLES Final Resu lt [facility] ([place]) 1 [facility] [place] [address] * Albumin Creatinine Ratio, Urine (09/02/2022 7:47 AM MANAGER OF IT) Albumin Ur <12.0 mg/L [facility] ([place]) Comment: Interpretive Data No reference range established. Current interpretive data was last revised 2018. Testing performed by: [facility], [address] [place] [address]., [id number] Creatinine Ur 151.2 mg/dL ANNMARIE JORDAN ([place]) Comment: Interpretive Data No reference range established. Current interpretive data was last revised 2018. Testing performed by: [facility], [address] [place] [address]., [id number] Albumin Creatinine Ratio, Ur <8 1 - 29 mg/g ANNMARIE JORDAN ([place]) Comment:Testing performed by : [facility], [address] [place] [address]., [id number] Urine 09/02/2022 7:47 AM MANAGER OF IT 09/02/2022 7:48 PM MANAGER OF IT us Iva Cline NP LAB URINE ORDERABLES Final Resu lt ANNMARIE JORDAN ([place]) 1 [facility] Department [place] [address] * Lipid panel (09/02/2022 7:47 AM MANAGER OF IT) Cholesterol 170 30 - 199 mg/dL ANNMARIE JORDAN ([place]) Comment: Interpretive Data Ages < or = 19 years Acceptable: <170 mg/dL Borderline high: 170-199 mg/dL High: >or= 200 mg/dL Ages > or = 20 years Desirable: <200 mg/dL Borderline high: 200-239 mg/dL High: >or= 240 mg/dL Literature References: 1. Expert Panel on Integrated Guidelines for Cardiovascular Health and Risk Reduction in Children and Adolescents. Pediatrics 2011;128:S213 2. NCEP Expert Panel. Circulation 2004;110:227 Current Interpretive Data was last revised on 2018. Triglycerides 69 <=149 mg/dL ANNMARIE JORDAN ([place]) Comment: Interpretive Data Ages < or = 9 years Acceptable: <75 mg/dL Borderline high: 75-99 mg/dL High: >or= 100 mg/dL Ages 10 to 20 years Acceptable: <90 mg/dL Borderline high: 90-129 mg/dL High: >or= 130 mg/dL Ages > or = 20 years Desirable: <150 mg/dL Borderline high: 150-199 mg/dL High: 200-499 mg/dL Very high: >or= 499 mg/dL Literature References: 1. Expert Panel on Integrated Guidelines for Cardiovascular Health and Risk Reduction in Children and Adolescents. Pediatrics 2011;128:S213 2. NCEP Expert Panel. Circulation 2004;110:227 Current Interpretive Data was last revised on 2018. HDL 53 >=40 mg/dL ANNMARIE Baker ([place]) Comment: Interpretive Data Ages < or = 19 years Acceptable: >45 mg/dL Borderline low: 40-45 mg/dL Low: <40 mg/dL Ages > or = 20 years Desirable: >or= 60 mg/dL Low: <40 mg/dL Literature References: 1. Expert Panel on Integrated Guidelines for Cardiovascular Health and Risk Reduction in Children and Adolescents. Pediatrics 2011;128:S213 2. NCEP Expert Panel. Circulation 2004;110:227 Current Interpretive Data was last revised on 2018. LDL, calculated 103 <=129 mg/dL ANNMARIE JORDAN ([place]) Comment: Interpretive Data Ages < or = 19 years Acceptable: <110 mg/dL Borderline high: 110-129 mg/dL High: >or= 130 mg/dL Ages > or = 20 years Optimal: <100 mg/dL Near optimal: 100-129 mg/dL Borderline high: 130-159 mg/dL High: >160 mg/dL Literature References: 1. Expert Panel on Integrated Guidelines for Cardiovascular Health and Risk Reduction in Children and Adolescents. Pediatrics 2011;128:S213 2. NCEP Expert Panel. Circulation 2004;110:227 Current Interpretive Data was last revised on 2018. Non-HDL Cholesterol 117 mg/dL ANNMARIE JORDAN ([place]) Comment: Interpretive Data Ages < or = 19 years Acceptable: <120 mg/dL Borderline high: 120-144 mg/dL High: >145 mg/dL Ages > or = 20 years When triglycerides are >200 mg/dL, Non-HDL cholesterol is a secondary target of therapy with treatment goals that are 30 mg/dL greater than the LDL cholesterol target. Literature References: 1. Expert Panel on Integrated Guidelines for Cardiovascular Health and Risk Reduction in Children and Adolescents. Pediatrics 2011;128:S213 2. NCEP Expert Panel. Circulation 2004;110:227 Current Interpretive Data was last revised on 2018. Chol/HDL ratio 3 BIPINNE Karely JORDAN ([place]) Blood 09/02/2022 7:47 AM MANAGER OF IT 09/02/2022 9:04 AM MANAGER OF IT Narrative ANNMARIE JORDAN ([place]) - 09/02/2022 9:40 AM MANAGER OF IT These lab test should be done fasting. This means do not eat or drink for at least 12 hours prior to getting your blood drawn. Iva Cline NP LAB BLOOD ORDERABLES Final Resu lt ANNMARIE JORDAN ([place]) 1 [facility] Department [place] [address] * Diabetic Eye Exam (06/05/2020) Result [facility] Historical Provider HEALTH MAINTENANCE Final Result * DIABETES FOOT EXAM (12/03/2019) Diabetic Foot Exam Normal Historical Provider HEALTH MAINTENANCE Final Result from Last 3 Months or Most Recently Relevant to Health Maintenance [place] [address] [place] [address] [facility] PPO [facility] [place] [place] [address] Care Teams Vending Attendant Relationship Specialty Start Date End Date Lamont Pete MD PCP - General 10/28/16 [place] [address] [place] [address] Consulting Physician Obstetrics and Gynecology 08/24/21
--- OUTSIDE RECORDS SUMMARY | 2025-04-18 13:54 | XMS_ITS | Clinical Summary ---
Author Organization [facility] Address [facility] [place] [address] Care Team Providers Care Roll Cutter Name Role Phone Lamont Pete MD Primary Care Provider [phone] Allergies No known active allergies Medications HYDROcodone-acet aminophen 5-325 MG tabletIndication s:Acute Pain < 3 Day Supply Take 1 tablet by mouth every 6 (six) hours as needed. Indications : Acute Pain < 3 Day Supply 10 tablet 10/08/2020 Active Social History Tobacco Use Types Packs/Day Years Used Date Smoking Tobacco: Never Smokeless Tobacco: Never Alcohol Use Standard Drinks/Week Comments Not Currently 0 (1 standard drink = 0.6 oz pur e alcohol) Comments No Sex and Gender Information Value Date Recorded Sex Assigned at Not on file Legal Sex Female 2:52 AM REGULATORY COMPLIANCE ENGINEER Gender Identity Not on file Sexual Orientation Not on file Last Filed Vital Signs Vital Sign Reading Time Taken Comments Blood Pressure 137/92 10/08/2020 2:59 AM REGULATORY COMPLIANCE ENGINEER Pulse 82 10/08/2020 2:59 AM REGULATORY COMPLIANCE ENGINEER Temperature 36.7 C (98.1 F) 10/08/2020 2:59 AM REGULATORY COMPLIANCE ENGINEER Respiratory Rate 16 10/08/2020 7:25 AM REGULATORY COMPLIANCE ENGINEER Oxygen Saturation 100% 10/08/2020 7:25 AM REGULATORY COMPLIANCE ENGINEER Inhaled Oxygen Concentration - - Weight 76.7 kg (169 lb) 10/08/2020 2:59 AM REGULATORY COMPLIANCE ENGINEER Height 162.6 cm (5' 4) 10/08/2020 2:59 AM REGULATORY COMPLIANCE ENGINEER Body Mass Index 29.01 10/08/2020 2:59 AM REGULATORY COMPLIANCE ENGINEER Plan of Treatment Health Maintenance Due Date Last Done Comments Cervical Cancer Screening Pap Smear (Age 30 to 64) Every 3 Years 1995 Annual Physical 1998 Hepatitis C 2013 Cervical Cancer Screening Pap with HPV Testing (Age 30 to 64) Every 5 Years 2025 Cervical Cancer Screening with HPV 2025 COVID-19 Vaccine ( season) 2025 DTaP, Tdap and Td Vaccines (8 - Td or Tdap) 01/01/2029 01/01/2019, 06/02/2006, 04/21/1999, Additional history exists Hepatitis B Vaccines Completed 1995, 1995, 1995 Meningococcal Vaccine Aged Out 02/09/2007 No etienne latha eligible based on patient's age to complete this topic HPV Vaccines Completed 01/10/2008, 09/2006, 02/09/2007 Meningococcal B Vaccine Aged Out No l onger eligible based on patient's age to complete this topic Pneumococcal Vaccine: Pediatrics (0 to 5 Years) and At-Risk Patients (6 to 49 Years) Aged Out No longer eligible based on patient's age to complete this topic RSV Immunizations Under 20 Months Aged Out No longer eligible based on patient's age to complete this topic Insurance MEDICAID Care Teams Roll Cutter Relationship Specialty Start Date End Date Lamont Pete MD [address] [facility] [address] [place] [address] [place] [id number] PCP - General INTERNAL MEDICINE 10/08/20
[2025-04-18 14:30] LABS: Hematocrit 43.3 % (37.0-47.0); Hemoglobin 14.2 g/dL (12.0-15.0); Immature Granulocyte Percent A 0.6 % (0-0.5); Lymphocytes Absolute Auto 2.22 K/mm3 (0.9-3.2); Mean Corpuscular HGB Conc 32.8 g/dl (32-36); Mean Corpuscular Hemoglobin 28.7 pg (26-34); Mean Corpuscular Volume 87.7 fl (80-100); Nucleated Red Blood Cells Absolute Auto 0.000 K/mm3 (0.0-0.012); Nucleated Red Blood Cells Perc 0.0 % (0.0-0.2); Platelet Count Result 506 k/mm3 (150-375); Red Blood Count 4.94 M/mm3 (4.2-5.4); White Blood Count 15.9 K/mm3 (4.5-10.0)
[2025-04-18 14:59] LABS: Alanine Aminotransferase 329 U/L (6-35); Albumin Level 4.7 g/dL (3.5-5.1); Alkaline Phosphatase 170 U/L (38-126); Aspartate Amino Transferase 214 U/L (14-36); Bilirubin,Total 0.8 mg/dL (0.2-1.3); Blood Urea Nitrogen 8 mg/dL (7-17); Calcium 9.0 mg/dL (8.4-10.2); Carbon Dioxide < 5 mmol/L (22-30); Chloride 105 mmol/L (98-107); Estimated CRCL calculation 111 ml/min; Estimated Glomerular Filt Rate > 60; Glucose 303 mg/dL (65-110); Magnesium 1.8 mg/dL (1.6-2.3); Potassium 4.7 mmol/L (3.4-5.0); Sodium 135 mmol/L (137-145); Total Protein 8.8 g/dL (6.3-8.2)
[2025-04-18 15:32] LABS: BEDSIDEPREGUCG Negative (Negative)
[2025-04-18 15:38] LABS: Add Urine Microscopic? YES; Appearance Urine Cloudy (Clear); Glucose Urine UA 3+ mg/dL (Negative); Leukocyte Esterase Ur Negative LEU/UL (Negative); Nitrate Urine Negative (Negative); Non Pathogenic Casts 0-2; Specific Grav Ur 1.025 (1.001-1.035)
[2025-04-18] MEDS: LACTATED RINGERS 1,000 ML 999 ML IV CONT ×2 (15:43)
[2025-04-18 16:06] LABS: Alveolar/Arterial O2 Gradient 14.9 mmHg; Carboxyhemoglobin 1.3 % THb (0-2.0); Fractional Inspired Oxygen 21 %; HCO3 ABG 10.2 mEq/l (22.0-26.0); Methemoglobin ABG 0.3 %THb (0-1.5); Oxygen Content ABG 19.3 %vol (16.0-22.0); Oxygen Saturation ABG 97.3 % (95.0-100.0); PO2 ABG 106.9 mmHg (80.0-100.0); PO2 FiO2 Ratio Arterial Blood 5.09 %; Reduced Hemoglobin 1.8 %THb (0-5.0)
[2025-04-18 16:10] LABS: PCO2 ABG 23.3 mmHg (35.0-45.0)
[2025-04-18 16:12] LABS: Modified Allen's Test Pass; Site Drawn RIGHT RADIAL
[2025-04-18 16:13] LABS: Liters per Minute 0.0 LPM
--- NOTE | 2025-04-18 16:19 | ED.GENADULT ---
HPI - General Adult General Chief complaint: Recheck/Abnormal Lab/Rx Stated complaint: dka Time Seen by Provider: 04/18/25 15:20 History of Present Illness HPI narrative: 30-year-old female with history of type 1 diabetes presents to the emergency department for evaluation for poorly controlled blood sugars. Patient has been having worsening dental pain for the last few days. Patient was started on Augmentin yesterday by Urgent Care. Patient did take her Augmentin today at approximately 1:00 p.m. Patient does complain of feeling increased thirst and increased generalized weakness. Patient has had nausea and vomiting as well. Patient denies any malfunction of her insulin pump. Related Data Home Medications ?Medication ?Instructions ?Recorded ?Confirmed ?Last Taken ?Type ondansetron HCl 4 mg tablet 4 mg PO Q8H 04/18/25 04/18/25 04/18/25 History Allergies Allergy/AdvReac Type Severity Reaction Status Date / Time No Known Allergies Allergy Verified 04/18/25 17:41 Review of Systems Review of Systems: All systems reviewed & are unremarkable except as noted in HPI and below [facility] Past Medical History Medical History (Updated 04/18/25 @ 18:45 by Gretchen Hassan APRN) Diabetes type 1 Family History Family History (Updated 04/18/25 @ 17:45 by Shilpa Avelar RN) Grandparent Hypertension Breast cancer Social History Social History Smoking packs per day: 0.5 Smoking cigarettes per day: 10.0 Smoking status: Former smoker Tobacco type: cigarettes and e-cigarettes/vaping Second hand tobacco smoke exposure: Yes Alcohol intake: current Drinks per week: 1 Substance use: never Lack of Transportation: YES Lack of Food: Never True Current Housing: I Have Housing Concerned About Future Housing: No Difficulty Paying Gas/Electric Bills: No Difficulty Paying for Meds: No Currently Unemployed: No Education: High School Diploma/GED Difficulty w/ Childcare or Family Care: No Spiritual care concerns: No Exam Narrative: APPEARANCE: Well appearing, no pain, no distress, well-nourished. HEAD: normocephalic, atraumatic. EYES: PERRLA/EOMI, conjunctivae clear. NOSE: Normal no drainage EARS:TMS clear with good light reflex. THROAT: Pharynx clear, no exudate. NECK: Supple. No adenopathy, no masses. RESPIRATORY: Airway patent, respirations nonlabored. Clear to auscultation bilaterally, no rales, rhonchi, wheezing. CARDIOVASCULAR: Regular rate and rhythm without murmurs rubs or gallops. ABDOMINAL: Soft, nontender, nondistended, normal bowel sounds MUSCULOSKELETAL: Moves all extremities. Strength/ROM intact, No edema, No calf tenderness. NEURO: Alert. Cranial nerves II through XII intact. Good gait. Good coordination SKIN: Warm, dry. Normal Color Course Vital Signs Vital signs: Vital Signs Temperature 98.5 F 04/18/25 13:56 Pulse Rate 113 H 04/18/25 13:56 Respiratory Rate 20 04/18/25 13:56 Blood Pressure 135/75 04/18/25 13:56 Pulse Oximetry 98 04/18/25 13:56 Oxygen Delivery Room Air 04/18/25 13:56 Temperature 98.3 F 04/18/25 18:00 Pulse Rate 98 04/18/25 18:00 Respiratory Rate 24 H 04/18/25 18:00 Blood Pressure 130/89 04/18/25 18:00 Pulse Oximetry 100 04/18/25 18:00 Oxygen Delivery Room Air 04/18/25 17:12 Medical Decision Making MDM Narrative Medical decision making narrative: 30-year-old female with history of type 1 diabetes insulin pump and glucose monitor present to the emergency department for evaluation for poorly controlled blood sugars. Patient does have a leukocytosis of 15.9 and is currently on Augmentin for suspected dental infection. On patient's CMP she had an unmeasurable anion gap due to a low carbon dioxide. On patient's ABG she has a pH is 7.26, pCO2 of 23.3, bicarbonate of 10.2. Patient's potassium was 4.7, patient's creatinine was 0.65. Patient does have mild elevation AST ALT and alk-phos but no elevation T bili. Patient had no abdominal tenderness to palpation. Urine was positive for ketones positive for blood and did have some white blood cells with moderate squamous epithelials, urine culture was ordered. Case was discussed with the artificial teeth inspector patient will be admitted to the ICU for DKA. Insulin bolus and infusion was started the emergency department. Patient was also treated with 2 L of lactated Ringer's. Case was discussed with hospitalist and patient was accepted to the ICU. Patient family were updated the results of the workup and recommended admission. All questions concerns were addressed. CT facial with contrast was ordered to evaluate for potential facial abscess. Patient has no trismus and no facial swelling. Critical Care Procedure Note Authorized and Performed by: Jayce Boateng Total critical care time: Approximately 36 minutes Due to a high probability of clinically significant, life threatening deterioration, the patient required my highest level of preparedness to intervene emergently and I personally spent this critical care time directly and personally managing the patient. This critical care time included obtaining a history; examining the patient; pulse oximetry; ordering and review of studies; arranging urgent treatment with development of a management plan; evaluation of patient's response to treatment; frequent reassessment; and, discussions with other providers. This critical care time was performed to assess and manage the high probability of imminent, life-threatening deterioration that could result in multi-organ failure. It was exclusive of separately billable procedures and treating other patients and teaching time. Please see MDM section and the rest of the note for further information on patient assessment and treatment. Differential Diagnosis Differential Diagnosis: Urinary tract infection, dental infection, COVID, RSV influenza a, hyperglycemia, nausea vomiting diarrhea, DKA Vital Signs Vital Signs: Vital Signs Temperature 98.5 F 04/18/25 13:56 Pulse Rate 113 H 04/18/25 13:56 Respiratory Rate 20 04/18/25 13:56 Blood Pressure 135/75 04/18/25 13:56 Pulse Oximetry 98 04/18/25 13:56 Oxygen Delivery Room Air 04/18/25 13:56 Temperature 98.3 F 04/18/25 18:00 Pulse Rate 98 04/18/25 18:00 Respiratory Rate 24 H 04/18/25 18:00 Blood Pressure 130/89 04/18/25 18:00 Pulse Oximetry 100 04/18/25 18:00 Oxygen Delivery Room Air 04/18/25 17:12 Lab Data Lab results reviewed: Yes I reviewed the patient's lab results. 04/18/25 14:26 04/18/25 17:55 Labs: Lab Results 04/18/25 04/18/25 04/18/25 Range/Units 14:00 14:25 14:26 WBC 15.9 H (4.5-10.0) K/mm3 RBC 4.94 (4.2-5.4) M/mm3 Hgb 14.2 (12.0-15.0) g/dL Hct 43.3 (37.0-47.0) % MCV 87.7 (80-100) fl MCH 28.7 (26-34) pg MCHC 32.8 (32-36) g/dl RDW 12.9 (11.5-14.5) % Plt Count 506 H (150-375) k/mm3 MPV 9.0 (7.4-10.4) fl Immature Gran % (Auto) 0.6 H (0-0.5) % Neut % (Auto) 80.4 H (45.5-73.1) % Lymph % (Auto) 14.0 L (18.3-44.2) % [place] % (Auto) 4.0 (2.6-8.5) % Eos % (Auto) 0.3 (0-4.4) % Baso % (Auto) 0.7 (0.2-1.2) % Lymph # (Auto) 2.22 (0.9-3.2) K/mm3 [place] # (Auto) 0.6 (0.1-0.6) K/mm3 Eos # (Auto) 0.1 (0-0.3) K/mm3 Baso # (Auto) 0.1 (0.0-0.1) K/mm3 Abs Immat Gran (auto) 0.10 H (0.00-0.031) K/mm3 Absolute Neuts (auto) 12.8 H (1.3-6.7) K/mm3 Absolute Nucleated RBC 0.000 (0.0-0.012) K/mm3 Nucleated RBC % 0.0 (0.0-0.2) % Methemoglobin (0-1.5) %THb Sodium 135 L (137-145) mmol/L Potassium 4.7 (3.4-5.0) mmol/L Chloride 105 (98-107) mmol/L Carbon Dioxide < 5 L (22-30) mmol/L Anion Gap (4-12) mmol/L BUN 8 (7-17) mg/dL Creatinine 0.65 L (0.7-1.0) mg/dL Estim Creat Clear Calc 111 ml/min Estimated GFR > 60 (59 - ) Glucose 303 H (65-110) mg/dL POC Capillary Glucose 309 H (65-105) mg/dl Calcium 9.0 (8.4-10.2) mg/dL Phosphorus 2.7 (2.5-4.5) mg/dL Magnesium 1.8 (1.6-2.3) mg/dL Total Bilirubin 0.8 (0.2-1.3) mg/dL AST 214 H (14-36) U/L ALT 329 H (6-35) U/L Alkaline Phosphatase 170 H (38-126) U/L Total Protein 8.8 H (6.3-8.2) g/dL Albumin 4.7 (3.5-5.1) g/dL Beta-Hydroxybutyrate/Acetoacetate 6.84 H (0.02-0.27) mmol/L Urine Color (Yellow) Urine Appearance (Clear) Urine pH (5.0-9.0) Ur Specific [place] (1.001-1.035) Urine Protein (Negative) mg/dL Urine Glucose (UA) (Negative) mg/dL Urine Ketones (Negative) mg/dL Ur Blood (Man) (Negative) Urine Nitrate (Negative) Urine Bilirubin (Negative) Urine Urobilinogen (<2.0) mg/dL Leukocyte Esterase Rfl (Negative) MATTHEW/UL Urine RBC (0-2) /hpf Urine WBC (0-3) /hpf Ur Squamous Epith Cells (Few) /hpf Urine Bacteria /hpf Urine Casts POC Urine HCG, Qual (Negative) 04/18/25 04/18/25 04/18/25 Range/Units 15:28 15:29 15:48 WBC (4.5-10.0) K/mm3 RBC (4.2-5.4) M/mm3 Hgb (12.0-15.0) g/dL Hct (37.0-47.0) % MCV (80-100) fl MCH (26-34) pg MCHC (32-36) g/dl RDW (11.5-14.5) % Plt Count (150-375) k/mm3 MPV (7.4-10.4) fl Immature Gran % (Auto) (0-0.5) % Neut % (Auto) (45.5-73.1) % Lymph % (Auto) (18.3-44.2) % [place] % (Auto) (2.6-8.5) % Eos % (Auto) (0-4.4) % Baso % (Auto) (0.2-1.2) % Lymph # (Auto) (0.9-3.2) K/mm3 [place] # (Auto) (0.1-0.6) K/mm3 Eos # (Auto) (0-0.3) K/mm3 Baso # (Auto) (0.0-0.1) K/mm3 Abs Immat Gran (auto) (0.00-0.031) K/mm3 Absolute Neuts (auto) (1.3-6.7) K/mm3 Absolute Nucleated RBC (0.0-0.012) K/mm3 Nucleated RBC % (0.0-0.2) % Methemoglobin (0-1.5) %THb Sodium (137-145) mmol/L Potassium (3.4-5.0) mmol/L Chloride (98-107) mmol/L Carbon Dioxide (22-30) mmol/L Anion Gap (4-12) mmol/L BUN (7-17) mg/dL Creatinine (0.7-1.0) mg/dL Estim Creat Clear Calc ml/min Estimated GFR (59 - ) Glucose (65-110) mg/dL POC Capillary Glucose 297 H (65-105) mg/dl Calcium (8.4-10.2) mg/dL Phosphorus (2.5-4.5) mg/dL Magnesium (1.6-2.3) mg/dL Total Bilirubin (0.2-1.3) mg/dL AST (14-36) U/L ALT (6-35) U/L Alkaline Phosphatase (38-126) U/L Total Protein (6.3-8.2) g/dL Albumin (3.5-5.1) g/dL Beta-Hydroxybutyrate/Acetoacetate (0.02-0.27) mmol/L Urine Color Yellow (Yellow) Urine Appearance Cloudy H (Clear) Urine pH 5.0 (5.0-9.0) Ur Specific [place] 1.025 (1.001-1.035) Urine Protein Trace (Negative) mg/dL Urine Glucose (UA) 3+ H (Negative) mg/dL Urine Ketones 4+ H (Negative) mg/dL Ur Blood (Man) 3+ H (Negative) Urine Nitrate Negative (Negative) Urine Bilirubin Negative (Negative) Urine Urobilinogen 0.2 (<2.0) mg/dL Leukocyte Esterase Rfl Negative (Negative) MATTHEW/UL Urine RBC 0-2 (0-2) /hpf Urine WBC 6-10 H (0-3) /hpf Ur Squamous Epith Cells Moderate (Few) /hpf Urine Bacteria Rare /hpf Urine Casts 0-2 POC Urine HCG, Qual Negative (Negative) 04/18/25 Range/Units 16:03 WBC (4.5-10.0) K/mm3 RBC (4.2-5.4) M/mm3 Hgb (12.0-15.0) g/dL Hct (37.0-47.0) % MCV (80-100) fl MCH (26-34) pg MCHC (32-36) g/dl RDW (11.5-14.5) % Plt Count (150-375) k/mm3 MPV (7.4-10.4) fl Immature Gran % (Auto) (0-0.5) % Neut % (Auto) (45.5-73.1) % Lymph % (Auto) (18.3-44.2) % [place] % (Auto) (2.6-8.5) % Eos % (Auto) (0-4.4) % Baso % (Auto) (0.2-1.2) % Lymph # (Auto) (0.9-3.2) K/mm3 [place] # (Auto) (0.1-0.6) K/mm3 Eos # (Auto) (0-0.3) K/mm3 Baso # (Auto) (0.0-0.1) K/mm3 Abs Immat Gran (auto) (0.00-0.031) K/mm3 Absolute Neuts (auto) (1.3-6.7) K/mm3 Absolute Nucleated RBC (0.0-0.012) K/mm3 Nucleated RBC % (0.0-0.2) % Methemoglobin 0.3 (0-1.5) %THb Sodium (137-145) mmol/L Potassium (3.4-5.0) mmol/L Chloride (98-107) mmol/L Carbon Dioxide (22-30) mmol/L Anion Gap (4-12) mmol/L BUN (7-17) mg/dL Creatinine (0.7-1.0) mg/dL Estim Creat Clear Calc ml/min Estimated GFR (59 - ) Glucose (65-110) mg/dL POC Capillary Glucose (65-105) mg/dl Calcium (8.4-10.2) mg/dL Phosphorus (2.5-4.5) mg/dL Magnesium (1.6-2.3) mg/dL Total Bilirubin (0.2-1.3) mg/dL AST (14-36) U/L ALT (6-35) U/L Alkaline Phosphatase (38-126) U/L Total Protein (6.3-8.2) g/dL Albumin (3.5-5.1) g/dL Beta-Hydroxybutyrate/Acetoacetate (0.02-0.27) mmol/L Urine Color (Yellow) Urine Appearance (Clear) Urine pH (5.0-9.0) Ur Specific [place] (1.001-1.035) Urine Protein (Negative) mg/dL Urine Glucose (UA) (Negative) mg/dL Urine Ketones (Negative) mg/dL Ur Blood (Man) (Negative) Urine Nitrate (Negative) Urine Bilirubin (Negative) Urine Urobilinogen (<2.0) mg/dL Leukocyte Esterase Rfl (Negative) MATTHEW/UL Urine RBC (0-2) /hpf Urine WBC (0-3) /hpf Ur Squamous Epith Cells (Few) /hpf Urine Bacteria /hpf Urine Casts POC Urine HCG, Qual (Negative) ABG Data ABG results: 04/18/25 16:03 Puncture Site Right radial ABG pH 7.260 L* ABG pCO2 23.3 L* ABG pO2 106.9 H ABG PO2/FiO2 Ratio 5.09 ABG HCO3 10.2 L ABG O2 Saturation 97.3 ABG O2 Content 19.3 ABG Base Excess -14.8 A-a Gradient 14.9 Oxyhemoglobin 96.6 Carboxyhemoglobin 1.3 Reduced Hemoglobin 1.8 Total Hemoglobin 14.1 O2 Delivery Device Room air O2 Liters/Min 0.0 FiO2 21 Critical Care Time Critical Care Time Critical Care Time: Yes Total Critical Care Time: 36 Discharge Plan Discharge Clinical Impression: DKA (diabetic ketoacidosis) Patient Disposition: Still a Patient Condition: Critical
[2025-04-18 16:24] LABS: Beta-Hydroxybutyrate/Acetoace. 6.84 mmol/L (0.02-0.27)
[2025-04-18] MEDS: INSULIN HUMAN REGULAR (*BKC) 100 UNITS in SODIUM CHLORIDE 0.9% IV 99 ML 8 UNITS IV CONT (16:58)
[2025-04-18] MEDS: INSULIN HUMAN REGULAR (*BKC) 100 UNITS/ML 12.1 UNITS IV PUSH (16:59)
--- NOTE | 2025-04-18 17:29 | ADMGEN ---
This patient, Melyssa Cortez, was admitted to Intensive Care Unit-3 at 1721 Patient/family oriented to hospital policies and general routines including ID bracelet, bed and alarms, visiting hours, pain management, procedures, bathroom and other care routines, personal items, smoking policy, room service/diet, and visiting hours. Information on how to activate the Rapid Response Team has been discussed. Patient/Family are encouraged to report perceived risks to care and to ask questions if they do not understand what they are told or what they should do.
[2025-04-18] MEDS: SODIUM CHLORIDE 0.9% IV 1,000 ML 150 ML IV CONT (17:34)
[2025-04-18 18:21] LABS: Anion Gap 21 mmol/L (4-12); Blood Urea Nitrogen 8 mg/dL (7-17); Calcium 8.8 mg/dL (8.4-10.2); Carbon Dioxide 10 mmol/L (22-30); Chloride 105 mmol/L (98-107); Estimated CRCL calculation 118 ml/min; Estimated Glomerular Filt Rate > 60; Glucose 227 mg/dL (65-110); Potassium 4.6 mmol/L (3.4-5.0); Sodium 136 mmol/L (137-145)
[2025-04-18] MEDS: KCL 20 MEQ/D5/0.45% SOD CHL 1,000 ML 150 ML IV CONT (18:28)
--- NOTE | 2025-04-18 18:39 | P.HP_ITS ---
H&P: HPI History of Present Illness Date/Time: 04/18/25 18:39 Chief Complaint: Hyperglycemia Narrative: 30-year-old female past medical history of type 1 diabetes presents to the emergency room with hyperglycemia on insulin pump. Patient states that she had a recent dental abscess and was started on Augmentin yesterday. She is complaining of thirst and generalized weakness with nausea and vomiting. She does believe that her insulin pump is working properly, however her meter has broken. She states due to financial issues she has not replaced yet. She states it has been awhile. Patient denies nausea vomiting or abdominal pain. Patient's lab work shows leukocytosis at 15.9, ABG pH 7.26, pCO2 23, PO2 106, bicarb 10, carbon dioxide 10, anion gap 21, creatinine 0.63, glucose on admission was 303, AST 214, ALT 329, alkaline phos 170, beta hydroxybutyrate 6.84, UA negative for infection. CT face show There is no dental soft tissue abscess identified. There is however significant dental disease. Patient has been accepted to the ICU and started on insulin drip for DKA. Review of Systems Review of Systems: 12 systems were reviewed and are negativ e except for as per HPI. [facility] Past Medical History Medical History (Updated 04/18/25 @ 18:45 by Gretchen Hassan APRN) Diabetes type 1 Family History Family History (Updated 04/18/25 @ 17:45 by Shilpa Avelar RN) Grandparent Hypertension Breast cancer Social History Social History Smoking packs per day: 0.5 Smoking cigarettes per day: 10.0 Smoking status: Former smoker Tobacco type: cigarettes and e-cigarettes/vaping Second hand tobacco smoke exposure: Yes Alcohol intake: current Drinks per week: 1 Substance use: never Lack of Transportation: YES Lack of Food: Never True Current Housing: I Have Housing Concerned About Future Housing: No Difficulty Paying Gas/Electric Bills: No Difficulty Paying for Meds: No Currently Unemployed: No Education: High School Diploma/GED Difficulty w/ Childcare or Family Care: No Spiritual care concerns: No Meds Home Medications and Allergies Home Medications ?Medication ?Instructions ?Recorded ?Confirmed ?Type amoxicillin 875 mg-potassium 1 tablet PO Q12H #20 tabs 12/13/23 04/18/25 Rx clavulanate 125 mg tablet ondansetron HCl 4 mg tablet 4 mg PO Q8H 04/18/2504/18 History Allergies Allergy/AdvReac Type Severity Reaction Status Date / Time No Known Allergies Allergy Verified 04/18/25 17:41 Vital Signs Vital Signs - 24 hr 04/18/25 13:56 04/18/25 16:55 04/18/25 17:12 Temperature 98.5 F 98.0 F Pulse Rate 113 H 103 H Respiratory Rate 20 20 Blood Pressure 135/75 134/79 Pulse Oximetry 98 99 99 Oxygen Delivery Room Air Room Air 04/18/25 18:00 04/18/25 18:00 Temperature 98.3 F Pulse Rate 97 98 Respiratory Rate 24 H Blood Pressure 130/89 Pulse Oximetry 100 Oxygen Delivery Exam Narrative: General: well appearing, appears stated age. HEENT: normocephalic, atraumatic. Mucous membranes moist. EOMI, PERRLA, bilateral sclera anicteric, no conjunctival injection. Neck supple without JVD, lymphadenopathy, or bruit. Respiratory: clear to ascultation bilaterally. No rales/rhonic/wheezes. Cardiovascular: Regular rate and rhythm, normal S1-S2 upon ascultation. No murmurs, rubs, or clicks. PMI is nondisplaced, capillary refill less than 3 second. Abdomen: Soft, round, no pulsatile masses, nondistended and nontender. No rebound, no guarding. No CVA tenderness, no hepatosplenomegaly. Bowel sounds present to all four quadrants. No high pitch or tinkling sounds, resonant to percussion. Extremities: No cyanosis, clubbing, or edema present. Pulses are palpable 2/2. Active ROM to all four extremities. Neuro: Alert and orientated x 4. PERRLA. Cranial nerves 2-12 intact without focal deficit. Skin: Warm, dry, and intact, without rash, erythema, or lesion. Psych: pleasant, cooperative, normal speech, normal affect, no hallucinations, no dysarthia H&P: Results Labs Labs: Short CBC 04/18/25 Range/Units 14:26 WBC 15.9 H (4.5-10.0) K/mm3 Hgb 14.2 (12.0-15.0) g/dL Hct 43.3 (37.0-47.0) % Plt Count 506 H (150-375) k/mm3 BMP 04/18/25 04/18/25 14:26 17:55 Sodium 135 L 136 L Potassium 4.7 4.6 Chloride 105 105 Carbon Dioxide < 5 L 10 L BUN 8 8 Creatinine 0.65 L 0.63 L Glucose 303 H 227 H Calcium 9.0 8.8 Liver Function 04/18/25 Range/Units 14:26 Total Bilirubin 0.8 (0.2-1.3) mg/dL AST 214 H (14-36) U/L ALT 329 H (6-35) U/L Alkaline Phosphatase 170 H (38-126) U/L Albumin 4.7 (3.5-5.1) g/dL Urine 04/18/25 Range/Units 15:28 Urine Color Yellow (Yellow) Urine Appearance Cloudy H (Clear) Urine pH 5.0 (5.0-9.0) Ur Specific [place] 1.025 (1.001-1.035) Urine Protein Trace (Negative) mg/dL Urine Glucose (UA) 3+ H (Negative) mg/dL Assessment and Plan Assessment and plan (1) DKA (diabetic ketoacidosis): Code(s): E11.10 - Type 2 diabetes mellitus with ketoacidosis without coma Status: Acute Assessment and Plan: Admit ICU Insulin drip Fluids per protocol NPO BMP Q 4 (2) Diabetes type 1: Code(s): E10.9 - Type 1 diabetes mellitus without complications Status: Acute Assessment and Plan: Insulin pump was taken off in ED Glucose meter (3) Leukocytosis: Code(s): D72.829 - Elevated white blood cell count, unspecified Status: Acute Assessment and Plan: Continue Augmentin for dental pain UA negative for infection Denies abdominal pain (4) Transaminase or LDH elevation: Status: Acute Assessment and Plan: CMP in the morning Quality VTE Prophylaxis VTE prophylaxis: mechanical ordered Hospitalist MIPS Advance Care Plan I have confirmed that the patient's Advanced Care Plan is present, code status is documented, or surrogate decision maker is listed in patient medical record.: Yes Medication Reconciliation I have utilized all available resources to obtain, update and review the patients current medications (includes all prescriptions, OTC, herbals, cannabis, and nutritional supplements).: Yes
[2025-04-18 19:19] LABS: Hemoglobin A1C 11.7 % (<5.7)
[2025-04-18 21:05] LABS: MRSA (PCR) DETECTED (NOT DETECTE)
[2025-04-18 22:38] LABS: Anion Gap 15 mmol/L (4-12); Blood Urea Nitrogen 7 mg/dL (7-17); Calcium 8.4 mg/dL (8.4-10.2); Carbon Dioxide 13 mmol/L (22-30); Chloride 105 mmol/L (98-107); Estimated CRCL calculation 128 ml/min; Estimated Glomerular Filt Rate > 60; Glucose 224 mg/dL (65-110); Potassium 4.7 mmol/L (3.4-5.0); Sodium 133 mmol/L (137-145)
[2025-04-19] VITALS (11 sets, daily range): BP systolic 107–132; BP diastolic 62–79; PULSE 71–87; RESP 14–25; TEMP 36.6–37; O2SAT 94–100
[2025-04-19] MEDS: KCL 20 MEQ/D5/0.45% SOD CHL 1,000 ML 150 ML IV CONT ×2 (01:54→12:49)
[2025-04-19 02:28] LABS: Anion Gap 12 mmol/L (4-12); Blood Urea Nitrogen 7 mg/dL (7-17); Calcium 8.5 mg/dL (8.4-10.2); Carbon Dioxide 13 mmol/L (22-30); Chloride 108 mmol/L (98-107); Estimated CRCL calculation 141 ml/min; Estimated Glomerular Filt Rate > 60; Glucose 260 mg/dL (65-110); Potassium 4.4 mmol/L (3.4-5.0); Sodium 133 mmol/L (137-145)
[2025-04-19 06:19] LABS: Hematocrit 39.6 % (37.0-47.0); Hemoglobin 12.4 g/dL (12.0-15.0); Immature Granulocyte Percent A 0.5 % (0-0.5); Lymphocytes Absolute Auto 2.39 K/mm3 (0.9-3.2); Mean Corpuscular HGB Conc 31.3 g/dl (32-36); Mean Corpuscular Hemoglobin 28.3 pg (26-34); Mean Corpuscular Volume 90.4 fl (80-100); Nucleated Red Blood Cells Absolute Auto 0.000 K/mm3 (0.0-0.012); Nucleated Red Blood Cells Perc 0.0 % (0.0-0.2); Platelet Count Result 411 k/mm3 (150-375); Red Blood Count 4.38 M/mm3 (4.2-5.4); White Blood Count 10.3 K/mm3 (4.5-10.0)
[2025-04-19 06:48] LABS: Anion Gap 13 mmol/L (4-12); Blood Urea Nitrogen 7 mg/dL (7-17); Calcium 8.3 mg/dL (8.4-10.2); Carbon Dioxide 14 mmol/L (22-30); Chloride 107 mmol/L (98-107); Cholesterol 166 mg/dL (0-200); Estimated CRCL calculation 144 ml/min; Estimated Glomerular Filt Rate > 60; Glucose 233 mg/dL (65-110); HDL Direct 27 mg/dL; Potassium 4.4 mmol/L (3.4-5.0); Sodium 134 mmol/L (137-145); Triglycerides 161 mg/dL (<150)
[2025-04-19 08:08] LABS: Alanine Aminotransferase 305 U/L (6-35); Alkaline Phosphatase 120 U/L (38-126); Aspartate Amino Transferase 194 U/L (14-36)
--- NOTE | 2025-04-19 08:53 | WPDCNINT ---
Assessment and Plan Assessment and plan (1) DKA (diabetic ketoacidosis): Code(s): E11.10 - Type 2 diabetes mellitus with ketoacidosis without coma Status: Acute Assessment and Plan: Patient presented with DKA. She has insulin pump but only uses basal insulin. She does not check her blood glucose at home and has not had glucometer in more than a year. She also has not seen a and no mobile heavy equipment mechanic in 1 year. There is no objective sign of infection apart from the dental caries that she has. Pt was given IVF bolus and started on infusion which will be continued Insulin infusion started and Q1H glucose monitoring is being done Serial labs are ordered. Replace electrolytes as needed Clinically she is doing better with resolution of symptoms. Will transition to SC insulin once AG is closed Dietitian and stores clerk has been consulted. Will try to arrange a Glucometer for patient prior to discharge I explained to the patient the importance of with meal insulin administration along with the basal insulin. Patient wants to continue with insulin pump for the basal rate and is willing to give her additional with meal insulin depending on her blood sugar levels and p.o. intake going forward. (2) Dental infection: Code(s): K04.7 - Periapical abscess without sinus Status: Acute Assessment and Plan: CT scan does not show any abscess. Will continue Augmentin. Further follow-up as an outpatient. Plan DVT prophylaxis -S CT Nutrition - npo Code Status - Full Code Total Critical Care Time - 30 minutes Due to a high probability of clinically significant, life threatening deterioration, the patient required my highest level of preparedness to intervene emergently and I personally spent this critical care time directly and personally managing the patient. This critical care time included obtaining a history; examining the patient; pulse oximetry; ordering and review of studies; arranging urgent treatment with development of a management plan; evaluation of patient's response to treatment; frequent reassessment; and discussions with other providers. It was exclusive of separately billable procedures and treating other patients and teaching time. Please see Assessment and Plan section and the rest of the note for further information on patient assessment and treatment Rug Receiving Clerk Consult Note Consult date: 04/19/25 Reason for consult: DKA HPI: Melyssa Cortez is a 30 year old female with past medical history of type 1 diabetes who is on insulin pump presented with chief complaint of dry mouth and high heart rate. Patient states that she has an insulin pump but does not have a Glucometer for last 1 year. Patient has not been checking her sugars for last 1 year. She has not seen a physician and last 1 year. She states she is trying to establish care with an mobile heavy equipment mechanic here but her last visit was with an mobile heavy equipment mechanic in [place]. She states she also has a insulin pump for basal rate and she has not given herself with meal bolus insulin for long time. She does not check her blood sugar. She states she had some dental issue and was prescribed Augmentin. She only took 1 pill. She notice that her mouth was dry and her heart was racing fast hence she presented to the ER. She denies any fever chills rigors chest pain shortness a breath nausea vomiting diarrhea abdominal pain. All other systems were reviewed and were negative. Workup in the ER showed leukocytosis at 15.9, ABG pH 7.26, pCO2 23, PO2 106, bicarb 10, carbon dioxide 10, anion gap 21, creatinine 0.63, glucose on admission was 303, AST 214, ALT 329, alkaline phos 170, beta hydroxybutyrate 6.84, UA negative for infection. CT face show There is no dental soft tissue abscess identified. There is however significant dental disease. Patient was admitted to ICU and started on insulin infusion for DKA. This morning patient states she feels better and denies any new complaints. She states that her dry mouth has resolved and the palpitations have gone away. [facility] Past Medical History Medical History Diabetes type 1 Family History Family History Grandparent Hypertension Breast cancer Social History Social History Smoking packs per day: 0.5 Smoking cigarettes per day: 10.0 Smoking status: Former smoker Tobacco type: cigarettes and e-cigarettes/vaping Second hand tobacco smoke exposure: Yes Alcohol intake: current Drinks per week: 1 Substance use: never Lack of Transportation: YES Lack of Food: Never True Current Housing: I Have Housing Concerned About Future Housing: No Difficulty Paying Gas/Electric Bills: No Difficulty Paying for Meds: No Currently Unemployed: No Education: High School Diploma/GED Difficulty w/ Childcare or Family Care: No Spiritual care concerns: No Meds Home Medications and Allergies Home Medications ?Medication ?Instructions ?Recorded ?Confirmed ?Type amoxicillin 875 mg-potassium 1 tablet PO Q12H #20 tabs 12/13/23 04/18/25 Rx clavulanate 125 mg tablet ondansetron HCl 4 mg tablet 4 mg PO Q8H 04/18/25 04/18/25 History Allergies Allergy/AdvReac Type Severity Reaction Status Date / Time No Known Allergies Allergy Verified 04/18/25 17:41 Vital Signs Vital Signs - 24 hr 04/18/25 13:56 04/18/25 16:55 04/18/25 17:12 Temperature 36.9 C 36.7 C Pulse Rate 113 H 103 H Respiratory Rate 20 20 Blood Pressure 135/75 134/79 Pulse Oximetry 98 99 99 Oxygen Delivery Room Air Room Air 04/18/25 18:00 04/18/25 18:00 04/18/25 19:41 Temperature 36.8 C Pulse Rate 97 98 90 Respiratory Rate 24 H 29 H Blood Pressure 130/89 129/78 Pulse Oximetry 100 100 Oxygen Delivery 04/18/25 20:00 04/18/25 20:00 04/18/25 21:54 Temperature 36.9 C Pulse Rate 100 93 Respiratory Rate 26 H Blood Pressure 133/78 Pulse Oximetry 99 98 Oxygen Delivery Room Air 04/18/25 22:00 04/19/25 00:00 04/19/25 00:00 Temperature Pulse Rate 96 83 75 Respiratory Rate 14 Blood Pressure 107/62 Pulse Oximetry 96 Oxygen Delivery 04/19/25 00:00 04/19/25 02:00 04/19/25 02:00 Temperature Pulse Rate 80 80 Respiratory Rate 21 H Blood Pressure 112/77 Pulse Oximetry 94 97 Oxygen Delivery Room Air 04/19/25 04:00 04/19/25 04:00 04/19/25 04:20 Temperature 36.7 C Pulse Rate 71 71 Respiratory Rate 19 Blood Pressure 114/76 Pulse Oximetry 94 95 Oxygen Delivery Room Air 04/19/25 06:00 04/19/25 06:00 Temperature 36.6 C Pulse Rate 81 85 Respiratory Rate 19 Blood Pressure 132/77 Pulse Oximetry 99 Oxygen Delivery Exam Narrative: General: Pt is alert awake and in NAD Lungs/Chest: Trachea central Clear BS B/L, No crackles or wheezing. Cardiac: RRR. Normal S1 S2. No murmurs Circulation: Pedal pulses are intact and symmetrical. Abdomen: Normal bowel sounds.. Soft. NT. ND. Extremities: No clubbing, cyanosis or edema. Warm : [place] in place Neurologic: Follows commands. Moves all 4 extremities PERRL Skin: No Rash HEENT: No swelling or redness around mandible or trismus noticed Results Labs 04/19/25 06:01 04/19/25 06:01 Labs: Impressions Face CT 04/18/25 17:43 IMPRESSION: There is no dental soft tissue abscess identified. There is however significant dental disease and follow-up is suggested to assess as clinically warranted. Short CBC 04/18/25 04/19/25 Range/Units 14:26 06:01 WBC 15.9 H 10.3 H (4.5-10.0) K/mm3 Hgb 14.2 12.4 (12.0-15.0) g/dL Hct 43.3 39.6 (37.0-47.0) % Plt Count 506 H 411 H (150-375) k/mm3 BMP 04/18/25 04/18/25 04/18/25 14:26 17:55 22:10 Sodium 135 L 136 L 133 L Potassium 4.7 4.6 4.7 Chloride 105 105 105 Carbon Dioxide < 5 L 10 L 13 L BUN 8 8 7 Creatinine 0.65 L 0.63 L 0.58 L Glucose 303 H 227 H 224 H Calcium 9.0 8.8 8.4 04/19/25 04/19/25 02:10 06:01 Sodium 133 L 134 L Potassium 4.4 4.4 Chloride 108 H 107 Carbon Dioxide 13 L 14 L BUN 7 7 Creatinine 0.52 L 0.52 L Glucose 260 H 233 H Calcium 8.5 8.3 L Liver Function 04/18/25 04/19/25 Range/Units 14:26 06:01 Total Bilirubin 0.8 (0.2-1.3) mg/dL AST 214 H 194 H (14-36) U/L ALT 329 H 305 H (6-35) U/L Alkaline Phosphatase 170 H 120 (38-126) U/L Albumin 4.7 (3.5-5.1) g/dL Urine 04/18/25 Range/Units 15:28 Urine Color Yellow (Yellow) Urine Appearance Cloudy H (Clear) Urine pH 5.0 (5.0-9.0) Ur Specific [place] 1.025 (1.001-1.035) Urine Protein Trace (Negative) mg/dL Urine Glucose (UA) 3+ H (Negative) mg/dL Quality VTE Prophylaxis VTE prophylaxis: mechanical ordered Hospitalist MIPS Advance Care Plan I have confirmed that the patient's Advanced Care Plan is present, code status is documented, or surrogate decision maker is listed in patient medical record.: Yes Medication Reconciliation I have utilized all available resources to obtain, update and review the patients current medications (includes all prescriptions, OTC, herbals, cannabis, and nutritional supplements).: Yes
[2025-04-19 10:15] LABS: Anion Gap 15 mmol/L (4-12); Blood Urea Nitrogen 7 mg/dL (7-17); Calcium 8.4 mg/dL (8.4-10.2); Carbon Dioxide 12 mmol/L (22-30); Chloride 106 mmol/L (98-107); Estimated CRCL calculation 152 ml/min; Estimated Glomerular Filt Rate > 60; Glucose 267 mg/dL (65-110); Potassium 4.5 mmol/L (3.4-5.0); Sodium 133 mmol/L (137-145)
--- NOTE | 2025-04-19 11:26 | PM.IMPN ---
Progress Note: A&P Assessment and Plan (1) DKA (diabetic ketoacidosis): Code(s): E11.10 - Type 2 diabetes mellitus with ketoacidosis without coma Status: Acute Assessment and Plan: Patient presented with DKA. She has insulin pump but only uses basal insulin. She does not check her blood glucose at home and has not had glucometer in more than a year. She also has not seen a and no principal systems architect in [address] face showed dental disease with no abscess CXR ordered continue IVF and insulin infection monitor in ICU patient educator for use of insulin pump (2) Dental infection: Code(s): K04.7 - Periapical abscess without sinus Status: Acute Assessment and Plan: CT scan does not show any abscess. Will continue Augmentin. Further follow-up as an outpatient. Plan DVT prophylaxis -S CT Nutrition - npo Code Status - Full Code Subjective Date/time seen: 04/19/25 11:26 Interval history: Comfortable at bedside Still on IVF and Insulin insulin Review of Systems Review of Systems: 12 systems were reviewed and are negative except for as per HPI. Exam Narrative: General: Pt is alert awake and in NAD Lungs/Chest: Trachea central Clear BS B/L, No crackles or wheezing. Cardiac: RRR. Normal S1 S2. No murmurs Circulation: Pedal pulses are intact and symmetrical. Abdomen: Normal bowel sounds.. Soft. NT. ND. Extremities: No clubbing, cyanosis or edema. Warm : [place] in place Neurologic: Follows commands. Moves all 4 extremities PERRL Skin: No Rash HEENT: No swelling or redness around mandible or trismus noticed Objective Data Vital Signs Vital Signs: Vital Signs - 24 hr 04/18/25 13:56 04/18/25 16:55 04/18/25 17:12 Temperature 98.5 F 98.0 F Pulse Rate 113 H 103 H Respiratory Rate 20 20 Blood Pressure 135/75 134/79 Pulse Oximetry 98 99 99 Oxygen Delivery Room Air Room Air 04/18/25 18:00 04/18/25 18:00 04/18/25 19:41 Temperature 98.3 F Pulse Rate 97 98 90 Respiratory Rate 24 H 29 H Blood Pressure 130/89 129/78 Pulse Oximetry 100 100 Oxygen Delivery 04/18/25 20:00 04/18/25 20:00 04/18/25 21:54 Temperature 98.4 F Pulse Rate 100 93 Respiratory Rate 26 H Blood Pressure 133/78 Pulse Oximetry 99 98 Oxygen Delivery Room Air 04/18/25 22:00 04/19/25 00:00 04/19/25 00:00 Temperature Pulse Rate 96 83 75 Respiratory Rate 14 Blood Pressure 107/62 Pulse Oximetry 96 Oxygen Delivery 04/19/25 00:00 04/19/25 02:00 04/19/25 02:00 Temperature Pulse Rate 80 80 Respiratory Rate 21 H Blood Pressure 112/77 Pulse Oximetry 94 97 Oxygen Delivery Room Air 04/19/25 04:00 04/19/25 04:00 04/19/25 04:20 Temperature 98.1 F Pulse Rate 71 71 Respiratory Rate 19 Blood Pressure 114/76 Pulse Oximetry 94 95 Oxygen Delivery Room Air 04/19/25 06:00 04/19/25 06:00 04/19/25 08:00 Temperature 98 F 98.2 F Pulse Rate 81 85 77 Respiratory Rate 19 21 H Blood Pressure 132/77 119/79 Pulse Oximetry 99 98 Oxygen Delivery 04/19/25 08:00 04/19/25 08:00 04/19/25 10:00 Temperature 98.5 F Pulse Rate 82 83 Respiratory Rate 20 Blood Pressure 114/71 Pulse Oximetry 98 100 Oxygen Delivery Room Air 04/19/25 10:00 Temperature Pulse Rate 83 Respiratory Rate Blood Pressure Pulse Oximetry Oxygen Delivery Intake/Output Intake/Output: Intake & Output 04/16/25 04/17/25 04/18/25 04/19/25 23:59 23:59 23:59 23:59 Intake Total 2933.7 1611.8 Balance 2933.7 1611.8 Meds/Results Medications: Active Medications Generic Name Dose Route Start Last Admin Trade Name Freq PRN Reason Stop Dose Admin Acetaminophen 650 mg 04/18/25 16:36 Acetaminophen 325 Mg Tablet PO Q4H PRN Mild Pain (1-3) or Fever Amoxicillin/Clavulanate Potassium 1 tablet 04/18/25 21:00 04/19/25 08:39 Amoxicillin/Clavulanate K 875-125 Mg Tab PO 1 tablet Q12HR SUPA Administration Dextrose 12.5 gm 04/18/25 15:21 Dextrose 50% 25 Gm/50 Ml Syringe IV PUSH PRN PRN Hypoglycemia Protocol Glucagon 1 mg 04/18/25 15:21 Glucagon For Inj 1 Mg Vial IM PRN PRN Hypoglycemia Protocol Glucose 15 gm 04/18/25 15:21 Glucose Oral Gel 15 Gm Of Glucse In 37.5 Gm Tube PO PRN PRN Hypoglycemia Protocol Dextrose 1,000 mls @ 100 mls/hr 04/18/25 15:21 Dextrose 5% 1,000 Ml IVPB PRN PRN Hypoglycemia Protocol Insulin Human Regular 100 100 mls @ 3 mls/hr 04/18/25 16:10 04/19/25 10:36 units/ Sodium Chloride IV CONT 3 units/hr .Q24H SUPA 3 mls/hr Protocol Titration 3 UNITS/HR Sodium Chloride 1,000 mls @ 150 mls/hr 04/18/25 16:40 04/19/25 10:57 Normal Saline Iv IV CONT 150 mls/hr .Q6H40M SUPA Infusion Potassium Chloride/Dextrose/Sod Cl 1,000 mls @ 150 mls/hr 04/18/25 16:40 04/19/25 10:58 Kcl 20 Meq/D5/0.45% Sod Chl IV CONT Infused .Q6H40M SUPA Infusion Dextrose/Sodium Chloride 1,000 mls @ 150 mls/hr 04/18/25 16:40 Dextrose 5% Sodium Chloride 0.45% IV CONT .Q6H40M SUPA Ondansetron HCl 4 mg 04/18/25 16:36 Ondansetron Inj 4 Mg/2 Ml Vial IV PUSH Q6H PRN Nausea And Vomiting Radiology Results: ITS Impressions Face CT 04/18/25 17:43 IMPRESSION: There is no dental soft tissue abscess identified. There is however significant dental disease and follow-up is suggested to assess as clinically warranted. Labs Labs: Laboratory Results - last 24 hr 04/18/25 04/18/25 04/18/25 14:00 14:25 14:26 WBC 15.9 H RBC 4.94 Hgb 14.2 Hct 43.3 MCV 87.7 MCH 28.7 MCHC 32.8 RDW 12.9 Plt Count 506 H MPV 9.0 Immature Gran % (Auto) 0.6 H Neut % (Auto) 80.4 H Lymph % (Auto) 14.0 L [place] % (Auto) 4.0 Eos % (Auto) 0.3 Baso % (Auto) 0.7 Lymph # (Auto) 2.22 [place] # (Auto) 0.6 Eos # (Auto) 0.1 Baso # (Auto) 0.1 Abs Immat Gran (auto) 0.10 H Absolute Neuts (auto) 12.8 H Absolute Nucleated RBC 0.000 Nucleated RBC % 0.0 Puncture Site ABG pH ABG pCO2 ABG pO2 ABG PO2/FiO2 Ratio ABG HCO3 ABG O2 Saturation ABG O2 Content ABG Base Excess A-a Gradient Oxyhemoglobin Carboxyhemoglobin Methemoglobin Reduced Hemoglobin Total Hemoglobin O2 Delivery Device O2 Liters/Min FiO2 Sodium 135 L Potassium 4.7 Chloride 105 Carbon Dioxide < 5 L Anion Gap BUN 8 Creatinine 0.65 L Estim Creat Clear Calc 111 Estimated GFR > 60 Glucose 303 H POC Capillary Glucose 309 H Hemoglobin A1c Calcium 9.0 Phosphorus 2.7 Magnesium 1.8 Total Bilirubin 0.8 AST 214 H ALT 329 H Alkaline Phosphatase 170 H Total Protein 8.8 H Albumin 4.7 Triglycerides Cholesterol LDL Cholesterol Direct HDL Direct Beta-Hydroxybutyrate/Acetoacetate 6.84 H Urine Color Urine Appearance Urine pH Ur Specific [place] Urine Protein Urine Glucose (UA) Urine Ketones Ur Blood (Man) Urine Nitrate Urine Bilirubin Urine Urobilinogen Leukocyte Esterase Rfl Urine RBC Urine WBC Ur Squamous Epith Cells Urine Bacteria Urine Casts POC Urine HCG, Qual Nasal MRSA (PCR) 04/18/25 04/18/25 04/18/25 15:28 15:29 15:48 WBC RBC Hgb Hct MCV MCH MCHC RDW Plt Count MPV Immature Gran % (Auto) Neut % (Auto) Lymph % (Auto) [place] % (Auto) Eos % (Auto) Baso % (Auto) Lymph # (Auto) [place] # (Auto) Eos # (Auto) Baso # (Auto) Abs Immat Gran (auto) Absolute Neuts (auto) Absolute Nucleated RBC Nucleated RBC % Puncture Site ABG pH ABG pCO2 ABG pO2 ABG PO2/FiO2 Ratio ABG HCO3 ABG O2 Saturation ABG O2 Content ABG Base Excess A-a Gradient Oxyhemoglobin Carboxyhemoglobin Methemoglobin Reduced Hemoglobin Total Hemoglobin O2 Delivery Device O2 Liters/Min FiO2 Sodium Potassium Chloride Carbon Dioxide Anion Gap BUN Creatinine Estim Creat Clear Calc Estimated GFR Glucose POC Capillary Glucose 297 H Hemoglobin A1c Calcium Phosphorus Magnesium Total Bilirubin AST ALT Alkaline Phosphatase Total Protein Albumin Triglycerides Cholesterol LDL Cholesterol Direct HDL Direct Beta-Hydroxybutyrate/Acetoacetate Urine Color Yellow Urine Appearance Cloudy H Urine pH 5.0 Ur Specific [place] 1.025 Urine Protein Trace Urine Glucose (UA) 3+ H Urine Ketones 4+ H Ur Blood (Man) 3+ H Urine Nitrate Negative Urine Bilirubin Negative Urine Urobilinogen 0.2 Leukocyte Esterase Rfl Negative Urine RBC 0-2 Urine WBC 6-10 H Ur Squamous Epith Cells Moderate Urine Bacteria Rare Urine Casts 0-2 POC Urine HCG, Qual Negative Nasal MRSA (PCR) 04/18/25 04/18/25 04/18/25 16:03 17:27 17:55 WBC RBC Hgb Hct MCV MCH MCHC RDW Plt Count MPV Immature Gran % (Auto) Neut % (Auto) Lymph % (Auto) [place] % (Auto) Eos % (Auto) Baso % (Auto) Lymph # (Auto) [place] # (Auto) Eos # (Auto) Baso # (Auto) Abs Immat Gran (auto) Absolute Neuts (auto) Absolute Nucleated RBC Nucleated RBC % Puncture Site Right radial ABG pH 7.260 L* ABG pCO2 23.3 L* ABG pO2 106.9 H ABG PO2/FiO2 Ratio 5.09 ABG HCO3 10.2 L ABG O2 Saturation 97.3 ABG O2 Content 19.3 ABG Base Excess -14.8 A-a Gradient 14.9 Oxyhemoglobin 96.6 Carboxyhemoglobin 1.3 Methemoglobin 0.3 Reduced Hemoglobin 1.8 Total Hemoglobin 14.1 O2 Delivery Device Room air O2 Liters/Min 0.0 FiO2 21 Sodium 136 L Potassium 4.6 Chloride 105 Carbon Dioxide 10 L Anion Gap 21 H BUN 8 Creatinine 0.63 L Estim Creat Clear Calc 118 Estimated GFR > 60 Glucose 227 H POC Capillary Glucose 277 H Hemoglobin A1c 11.7 H Calcium 8.8 Phosphorus Magnesium Total Bilirubin AST ALT Alkaline Phosphatase Total Protein Albumin Triglycerides Cholesterol LDL Cholesterol Direct HDL Direct Beta-Hydroxybutyrate/Acetoacetate Urine Color Urine Appearance Urine pH Ur Specific [place] Urine Protein Urine Glucose (UA) Urine Ketones Ur Blood (Man) Urine Nitrate Urine Bilirubin Urine Urobilinogen Leukocyte Esterase Rfl Urine RBC Urine WBC Ur Squamous Epith Cells Urine Bacteria Urine Casts POC Urine HCG, Qual Nasal MRSA (PCR) 04/18/25 04/18/25 04/18/25 18:00 18:20 19:48 WBC RBC Hgb Hct MCV MCH MCHC RDW Plt Count MPV Immature Gran % (Auto) Neut % (Auto) Lymph % (Auto) [place] % (Auto) Eos % (Auto) Baso % (Auto) Lymph # (Auto) [place] # (Auto) Eos # (Auto) Baso # (Auto) Abs Immat Gran (auto) Absolute Neuts (auto) Absolute Nucleated RBC Nucleated RBC % Puncture Site ABG pH ABG pCO2 ABG pO2 ABG PO2/FiO2 Ratio ABG HCO3 ABG O2 Saturation ABG O2 Content ABG Base Excess A-a Gradient Oxyhemoglobin Carboxyhemoglobin Methemoglobin Reduced Hemoglobin Total Hemoglobin O2 Delivery Device O2 Liters/Min FiO2 Sodium Potassium Chloride Carbon Dioxide Anion Gap BUN Creatinine Estim Creat Clear Calc Estimated GFR Glucose POC Capillary Glucose 233 H 162 H Hemoglobin A1c Calcium Phosphorus Magnesium Total Bilirubin AST ALT Alkaline Phosphatase Total Protein Albumin Triglycerides Cholesterol LDL Cholesterol Direct HDL Direct Beta-Hydroxybutyrate/Acetoacetate Urine Color Urine Appearance Urine pH Ur Specific [place] Urine Protein Urine Glucose (UA) Urine Ketones Ur Blood (Man) Urine Nitrate Urine Bilirubin Urine Urobilinogen Leukocyte Esterase Rfl Urine RBC Urine WBC Ur Squamous Epith Cells Urine Bacteria Urine Casts POC Urine HCG, Qual Nasal MRSA (PCR) Detected A* 04/18/25 04/18/25 04/18/25 21:11 22:00 22:10 WBC RBC Hgb Hct MCV MCH MCHC RDW Plt Count MPV Immature Gran % (Auto) Neut % (Auto) Lymph % (Auto) [place] % (Auto) Eos % (Auto) Baso % (Auto) Lymph # (Auto) [place] # (Auto) Eos # (Auto) Baso # (Auto) Abs Immat Gran (auto) Absolute Neuts (auto) Absolute Nucleated RBC Nucleated RBC % Puncture Site ABG pH ABG pCO2 ABG pO2 ABG PO2/FiO2 Ratio ABG HCO3 ABG O2 Saturation ABG O2 Content ABG Base Excess A-a Gradient Oxyhemoglobin Carboxyhemoglobin Methemoglobin Reduced Hemoglobin Total Hemoglobin O2 Delivery Device O2 Liters/Min FiO2 Sodium 133 L Potassium 4.7 Chloride 105 Carbon Dioxide 13 L Anion Gap 15 H BUN 7 Creatinine 0.58 L Estim Creat Clear Calc 128 Estimated GFR > 60 Glucose 224 H POC Capillary Glucose 189 H 216 H Hemoglobin A1c Calcium 8.4 Phosphorus Magnesium Total Bilirubin AST ALT Alkaline Phosphatase Total Protein Albumin Triglycerides Cholesterol LDL Cholesterol Direct HDL Direct Beta-Hydroxybutyrate/Acetoacetate Urine Color Urine Appearance Urine pH Ur Specific [place] Urine Protein Urine Glucose (UA) Urine Ketones Ur Blood (Man) Urine Nitrate Urine Bilirubin Urine Urobilinogen Leukocyte Esterase Rfl Urine RBC Urine WBC Ur Squamous Epith Cells Urine Bacteria Urine Casts POC Urine HCG, Qual Nasal MRSA (PCR) 04/18/25 04/18/25 04/19/25 23:00 23:46 01:14 WBC RBC Hgb Hct MCV MCH MCHC RDW Plt Count MPV Immature Gran % (Auto) Neut % (Auto) Lymph % (Auto) [place] % (Auto) Eos % (Auto) Baso % (Auto) Lymph # (Auto) [place] # (Auto) Eos # (Auto) Baso # (Auto) Abs Immat Gran (auto) Absolute Neuts (auto) Absolute Nucleated RBC Nucleated RBC % Puncture Site ABG pH ABG pCO2 ABG pO2 ABG PO2/FiO2 Ratio ABG HCO3 ABG O2 Saturation ABG O2 Content ABG Base Excess A-a Gradient Oxyhemoglobin Carboxyhemoglobin Methemoglobin Reduced Hemoglobin Total Hemoglobin O2 Delivery Device O2 Liters/Min FiO2 Sodium Potassium Chloride Carbon Dioxide Anion Gap BUN Creatinine Estim Creat Clear Calc Estimated GFR Glucose POC Capillary Glucose 255 H 242 H 246 H Hemoglobin A1c Calcium Phosphorus Magnesium Total Bilirubin AST ALT Alkaline Phosphatase Total Protein Albumin Triglycerides Cholesterol LDL Cholesterol Direct HDL Direct Beta-Hydroxybutyrate/Acetoacetate Urine Color Urine Appearance Urine pH Ur Specific [place] Urine Protein Urine Glucose (UA) Urine Ketones Ur Blood (Man) Urine Nitrate Urine Bilirubin Urine Urobilinogen Leukocyte Esterase Rfl Urine RBC Urine WBC Ur Squamous Epith Cells Urine Bacteria Urine Casts POC Urine HCG, Qual Nasal MRSA (PCR) 04/19/25 04/19/25 04/19/25 02:10 03:12 04:17 WBC RBC Hgb Hct MCV MCH MCHC RDW Plt Count MPV Immature Gran % (Auto) Neut % (Auto) Lymph % (Auto) [place] % (Auto) Eos % (Auto) Baso % (Auto) Lymph # (Auto) [place] # (Auto) Eos # (Auto) Baso # (Auto) Abs Immat Gran (auto) Absolute Neuts (auto) Absolute Nucleated RBC Nucleated RBC % Puncture Site ABG pH ABG pCO2 ABG pO2 ABG PO2/FiO2 Ratio ABG HCO3 ABG O2 Saturation ABG O2 Content ABG Base Excess A-a Gradient Oxyhemoglobin Carboxyhemoglobin Methemoglobin Reduced Hemoglobin Total Hemoglobin O2 Delivery Device O2 Liters/Min FiO2 Sodium 133 L Potassium 4.4 Chloride 108 H Carbon Dioxide 13 L Anion Gap 12 BUN 7 Creatinine 0.52 L Estim Creat Clear Calc 141 Estimated GFR > 60 Glucose 260 H POC Capillary Glucose 256 H 219 H Hemoglobin A1c Calcium 8.5 Phosphorus Magnesium Total Bilirubin AST ALT Alkaline Phosphatase Total Protein Albumin Triglycerides Cholesterol LDL Cholesterol Direct HDL Direct Beta-Hydroxybutyrate/Acetoacetate Urine Color Urine Appearance Urine pH Ur Specific [place] Urine Protein Urine Glucose (UA) Urine Ketones Ur Blood (Man) Urine Nitrate Urine Bilirubin Urine Urobilinogen Leukocyte Esterase Rfl Urine RBC Urine WBC Ur Squamous Epith Cells Urine Bacteria Urine Casts POC Urine HCG, Qual Nasal MRSA (PCR) 04/19/25 04/19/25 04/19/25 05:10 06:01 06:13 WBC 10.3 H RBC 4.38 Hgb 12.4 Hct 39.6 MCV 90.4 MCH 28.3 MCHC 31.3 L RDW 13.2 Plt Count 411 H MPV 9.2 Immature Gran % (Auto) 0.5 Neut % (Auto) 67.0 Lymph % (Auto) 23.3 [place] % (Auto) 6.9 Eos % (Auto) 1.6 Baso % (Auto) 0.7 Lymph # (Auto) 2.39 [place] # (Auto) 0.7 H Eos # (Auto) 0.2 Baso # (Auto) 0.1 Abs Immat Gran (auto) 0.05 H Absolute Neuts (auto) 6.9 H Absolute Nucleated RBC 0.000 Nucleated RBC % 0.0 Puncture Site ABG pH ABG pCO2 ABG pO2 ABG PO2/FiO2 Ratio ABG HCO3 ABG O2 Saturation ABG O2 Content ABG Base Excess A-a Gradient Oxyhemoglobin Carboxyhemoglobin Methemoglobin Reduced Hemoglobin Total Hemoglobin O2 Delivery Device O2 Liters/Min FiO2 Sodium 134 L Potassium 4.4 Chloride 107 Carbon Dioxide 14 L Anion Gap 13 H BUN 7 Creatinine 0.52 L Estim Creat Clear Calc 144 Estimated GFR > 60 Glucose 233 H POC Capillary Glucose 212 H 221 H Hemoglobin A1c Calcium 8.3 L Phosphorus Magnesium Total Bilirubin AST 194 H ALT 305 H Alkaline Phosphatase 120 Total Protein Albumin Triglycerides 161 H Cholesterol 166 LDL Cholesterol Direct 107 HDL Direct 27 Beta-Hydroxybutyrate/Acetoacetate Urine Color Urine Appearance Urine pH Ur Specific [place] Urine Protein Urine Glucose (UA) Urine Ketones Ur Blood (Man) Urine Nitrate Urine Bilirubin Urine Urobilinogen Leukocyte Esterase Rfl Urine RBC Urine WBC Ur Squamous Epith Cells Urine Bacteria Urine Casts POC Urine HCG, Qual Nasal MRSA (PCR) 04/19/25 04/19/25 04/19/25 06:33 07:43 08:41 WBC RBC Hgb Hct MCV MCH MCHC RDW Plt Count MPV Immature Gran % (Auto) Neut % (Auto) Lymph % (Auto) [place] % (Auto) Eos % (Auto) Baso % (Auto) Lymph # (Auto) [place] # (Auto) Eos # (Auto) Baso # (Auto) Abs Immat Gran (auto) Absolute Neuts (auto) Absolute Nucleated RBC Nucleated RBC % Puncture Site ABG pH ABG pCO2 ABG pO2 ABG PO2/FiO2 Ratio ABG HCO3 ABG O2 Saturation ABG O2 Content ABG Base Excess A-a Gradient Oxyhemoglobin Carboxyhemoglobin Methemoglobin Reduced Hemoglobin Total Hemoglobin O2 Delivery Device O2 Liters/Min FiO2 Sodium Potassium Chloride Carbon Dioxide Anion Gap BUN Creatinine Estim Creat Clear Calc Estimated GFR Glucose POC Capillary Glucose 222 H 199 H 241 H Hemoglobin A1c Calcium Phosphorus Magnesium Total Bilirubin AST ALT Alkaline Phosphatase Total Protein Albumin Triglycerides Cholesterol LDL Cholesterol Direct HDL Direct Beta-Hydroxybutyrate/Acetoacetate Urine Color Urine Appearance Urine pH Ur Specific [place] Urine Protein Urine Glucose (UA) Urine Ketones Ur Blood (Man) Urine Nitrate Urine Bilirubin Urine Urobilinogen Leukocyte Esterase Rfl Urine RBC Urine WBC Ur Squamous Epith Cells Urine Bacteria Urine Casts POC Urine HCG, Qual Nasal MRSA (PCR) 04/19/25 04/19/25 04/19/25 09:40 09:46 10:37 WBC RBC Hgb Hct MCV MCH MCHC RDW Plt Count MPV Immature Gran % (Auto) Neut % (Auto) Lymph % (Auto) [place] % (Auto) Eos % (Auto) Baso % (Auto) Lymph # (Auto) [place] # (Auto) Eos # (Auto) Baso # (Auto) Abs Immat Gran (auto) Absolute Neuts (auto) Absolute Nucleated RBC Nucleated RBC % Puncture Site ABG pH ABG pCO2 ABG pO2 ABG PO2/FiO2 Ratio ABG HCO3 ABG O2 Saturation ABG O2 Content ABG Base Excess A-a Gradient Oxyhemoglobin Carboxyhemoglobin Methemoglobin Reduced Hemoglobin Total Hemoglobin O2 Delivery Device O2 Liters/Min FiO2 Sodium 133 L Potassium 4.5 Chloride 106 Carbon Dioxide 12 L Anion Gap 15 H BUN 7 Creatinine 0.49 L Estim Creat Clear Calc 152 Estimated GFR > 60 Glucose 267 H POC Capillary Glucose 269 H 285 H Hemoglobin A1c Calcium 8.4 Phosphorus Magnesium Total Bilirubin AST ALT Alkaline Phosphatase Total Protein Albumin Triglycerides Cholesterol LDL Cholesterol Direct HDL Direct Beta-Hydroxybutyrate/Acetoacetate Urine Color Urine Appearance Urine pH Ur Specific [place] Urine Protein Urine Glucose (UA) Urine Ketones Ur Blood (Man) Urine Nitrate Urine Bilirubin Urine Urobilinogen Leukocyte Esterase Rfl Urine RBC Urine WBC Ur Squamous Epith Cells Urine Bacteria Urine Casts POC Urine HCG, Qual Nasal MRSA (PCR) Quality VTE Prophylaxis VTE prophylaxis: mechanical ordered
--- NOTE | 2025-04-19 12:23 | PC.NURSE ---
Radiolgy to bedside for portable chest x-ray and patient refused, stated I don't smoke and I don't have an infection so I don't need a xray. Provider made aware. Anurag Avelar RN
[2025-04-19 15:36] LABS: Anion Gap 10 mmol/L (4-12); Blood Urea Nitrogen 6 mg/dL (7-17); Calcium 8.6 mg/dL (8.4-10.2); Carbon Dioxide 19 mmol/L (22-30); Chloride 107 mmol/L (98-107); Estimated CRCL calculation 152 ml/min; Estimated Glomerular Filt Rate > 60; Glucose 223 mg/dL (65-110); Potassium 3.8 mmol/L (3.4-5.0); Sodium 136 mmol/L (137-145)
[2025-04-19] MEDS: INSULIN GLARGINE (*BKC) 100 UNITS/ML 25 UNITS SUB-Q ×2 (15:52→20:55)
[2025-04-19] MEDS: INSULIN ASPART (*BKC) 100 UNITS/ML SUB-Q ×3 (17:08→20:53)
--- NOTE | 2025-04-19 18:06 | PC.NURSE ---
This patient, Melyssa Cortez, was transferred to [facility] on 04/19/25 at 1806. Personal belongings sent with patient. Report given to BETTY Cavazos. Appropriate documentation sent with patient. Patient voiced no complaints or concerns at this time. Family at bedside. Anurag Avelar RN.
--- NOTE | 2025-04-19 18:32 | PC.NURSE ---
This patient, Melyssa Cortez, was received from ICU on 04/19/25 at 1832. Patient/family oriented to unit policies and routines
[2025-04-20 06:00] VITALS: BP 114/76; PULSE 79; RESP 14; TEMP 37; O2SAT 96
[2025-04-20 06:54] LABS: Hematocrit 37.8 % (37.0-47.0); Hemoglobin 12.4 g/dL (12.0-15.0); Mean Corpuscular HGB Conc 32.8 g/dl (32-36); Mean Corpuscular Hemoglobin 28.8 pg (26-34); Mean Corpuscular Volume 87.7 fl (80-100); Platelet Count Result 435 k/mm3 (150-375); Red Blood Count 4.31 M/mm3 (4.2-5.4); White Blood Count 8.8 K/mm3 (4.5-10.0)
[2025-04-20 07:31] LABS: Alanine Aminotransferase 218 U/L (6-35); Albumin Level 3.6 g/dL (3.5-5.1); Alkaline Phosphatase 108 U/L (38-126); Anion Gap 11 mmol/L (4-12); Aspartate Amino Transferase 85 U/L (14-36); Bilirubin,Total 0.5 mg/dL (0.2-1.3); Blood Urea Nitrogen 5 mg/dL (7-17); Calcium 8.3 mg/dL (8.4-10.2); Carbon Dioxide 18 mmol/L (22-30); Chloride 107 mmol/L (98-107); Estimated CRCL calculation 157 ml/min; Estimated Glomerular Filt Rate > 60; Glucose 219 mg/dL (65-110); Magnesium 1.8 mg/dL (1.6-2.3); Potassium 3.9 mmol/L (3.4-5.0); Sodium 136 mmol/L (137-145); Total Protein 6.7 g/dL (6.3-8.2)
[2025-04-20] MEDS: INSULIN ASPART (*BKC) 100 UNITS/ML SUB-Q ×4 (08:20→12:12)
--- NOTE | 2025-04-20 13:31 | P.DS_ITS ---
DS: Admitting Diagnosis Discharge Date 04/20/25 Admitting Diagnosis Hyperglycemia DS: Summary Hospital Course Hospital Course: HPI per Admitting provider: 30-year-old female past medical history of type 1 diabetes presents to the emergency room with hyperglycemia on insulin pump. Patient states that she had a recent dental abscess and was started on Augmentin yesterday. She is compla ining of thirst and generalized weakness with nausea and vomiting. She does believe that her insulin pump is working properly, however her meter has broken. She states due to financial issues she has not replaced yet. She states it has been awhile. Patient denies nausea vomiting or abdominal pain. Patient's lab work shows leukocytosis at 15.9, ABG pH 7.26, pCO2 23, PO2 106, bicarb 10, carbon dioxide 10, anion gap 21, creatinine 0.63, glucose on admission was 303, AST 214, ALT 329, alkaline phos 170, beta hydroxybutyrate 6.84, UA negative for infection. CT face show There is no dental soft tissue abscess identified. There is however significant dental disease. Patient has been accepted to the ICU and started on insulin drip for DKA. Patient was managed in the ICU with IV insulin and IVF, DKA resolved adn patient was placedon lantus 25unit and 5 units premeal. I observed her insulin pump and she gets about 40 units of insulin a day, which correlated to what is getting right now. thus millienet will contineu insulin pump and placed on SSI with accucheks. Also discharged on Glucometer and kits for blood sugar checks. Patient was educated on use and insulin administration. Time Spent with Patient Time attestation: Total time spent providing and/or coordinating discharge services: DS: Data Data Completed and Pending Labs on day of discharge: Labs from last 24 hours 04/20/25 04/20/25 04/20/25 11:37 07:47 06:11 WBC 8.8 RBC 4.31 Hgb 12.4 Hct 37.8 MCV 87.7 MCH 28.8 MCHC 32.8 RDW 13.2 Plt Count 435 H MPV 9.3 Sodium 136 L Potassium 3.9 Chloride 107 Carbon Dioxide 18 L Anion Gap 11 BUN 5 L Creatinine 0.46 L Estim Creat Clear Calc 157 Estimated GFR > 60 Glucose 219 H POC Capillary Glucose 210 H 207 H Calcium 8.3 L Magnesium 1.8 Total Bilirubin 0.5 AST 85 H ALT 218 H Alkaline Phosphatase 108 Total Protein 6.7 Albumin 3.6 04/19/25 04/19/25 04/19/25 20:05 17:01 15:53 WBC RBC Hgb Hct MCV MCH MCHC RDW Plt Count MPV Sodium Potassium Chloride Carbon Dioxide Anion Gap BUN Creatinine Estim Creat Clear Calc Estimated GFR Glucose POC Capillary Glucose 234 H 210 H 217 H Calcium Magnesium Total Bilirubin AST ALT Alkaline Phosphatase Total Protein Albumin 04/19/25 04/19/25 04/19/25 15:08 14:47 13:41 WBC RBC Hgb Hct MCV MCH MCHC RDW Plt Count MPV Sodium 136 L Potassium 3.8 Chloride 107 Carbon Dioxide 19 L Anion Gap 10 BUN 6 L Creatinine 0.49 L Estim Creat Clear Calc 152 Estimated GFR > 60 Glucose 223 H POC Capillary Glucose 223 H 214 H Calcium 8.6 Magnesium Total Bilirubin AST ALT Alkaline Phosphatase Total Protein Albumin Discharge Plan Discharge Attending physician on discharge: Lisa Colorado Discharging Clinician: Lisa Colorado Anticipated Discharge Date/Time: 04/20/25 13:22 Patient Disposition: Home Activity: as tolerated Diet: as tolerated and diabetic Patient Instructions: Antibiotic Form Patient Language: Belarusian Stand Alone Forms: General Discharge Information Follow-up/Referrals: Juan R,Lamont Jordan MD [Primary Care Provider] Referral Note: F/u with PCP in 3-5 days Discharge Medications: New (DME) blood-glucose meter [OneTouch Verio Flex meter] [facility] Qty: 1 0RF Rx Instructions: May substitute to in-stock meter and/or covered by insurance. Use As Directed (DME) OneTouch Verio test strips Strip Qty: 1 0RF Rx Instructions: May substitute to in-stock and/or covered by insurance strips. Use As Directed (DME) pen needle, diabetic 32 gauge x 5/32 Needle Qty: 1 0RF Rx Instructions: As Directed (DME) lancets [OneTouch Delica Plus Lancet] 30 gauge [facility] [place] Qty: 1 0RF Rx Instructions: May substitute to in-stock and/or covered by insurance lancets. Use As Directed (DME) insulin syringe,safety needle 0.5 mL 31 gauge x 5/16 Syringe Qty: 1 0RF Rx Instructions: As Directed Humalog KwikPen Insulin 200 unit/mL (3 mL) insulin pen 1 sliding scale dose subcut USEASDIRECTD Qty: 6 0RF Rx Instructions: Blood Glucose mg/dl Insulin Dose Units < 70 Hold insulin, drink apple or orange juice and present to the ER 70?150 units no additional insulin 151?200 2 units 201?250 4 units 251?300 6 units 301?350 8 units 351?400 10 units > 400 12 units + notify PCP Continued amoxicillin-pot clavulanate 875-125 mg tablet 1 tablet PO Q12H Qty: 20 0RF ondansetron HCl 4 mg tablet 4 mg PO Q8H Patient Comments: for 4 days Date of admission: 04/18/25 16:27 Primary Care Provider: Juan R,Lamont Jordan Admitting Provider: Rosa Galindo Attending physician on admission: Rosa Galindo Condition: Critical
== END 2025-04-20 13:40 | disposition home or self-care (01) ==
LOC: ANHED 16:27 → ANH3MEDSUR 04-20 13:23 → ANHICU 04-21 13:36
PROVIDERS: Internal Medicine; Nurse Practitioner Gerontology; Admitting Provider General Practice; Emergency Provider Emergency Medicine; PCP Internal Medicine; Visit Provider Internal Medicine
DX: E10.10 Type 1 diabetes mellitus with ketoacidosis without coma (principal); Z96.41 Presence of insulin pump (external) (internal); Z79.4 Long term (current) use of insulin; D72.829 Elevated white blood cell count, unspecified; R74.01 Elevation of levels of liver transaminase levels; R11.2 Nausea with vomiting, unspecified; K08.89 Other specified disorders of teeth and supporting structures; F17.290 Nicotine dependence, other tobacco product, uncomplicated; Z82.49 Family history of ischemic heart disease and other diseases of the circulatory system; Z80.3 Family history of malignant neoplasm of breast
CPT/HCPCS: 36415; 36600; 70487; 80048; 80053; 80061; 81001; 81025; 82010; 82375; 82805; 82948; 83036; 83050; 83735; 84075; 84100; 84450; 84460; 85018; 85025; 85027; 87641; 96361; 96365; 96366; 96375; 96376; 99285; A9270; G0378; J1815; J3480; J7030; J7120; Q9967

== ENCOUNTER 2025-04-29 07:25 | Observation (INO) | payer OTHER, SELFPAY ==
[2025-04-29] VITALS (20 sets, daily range): BP systolic 106–152; BP diastolic 69–103; PULSE 73–117; RESP 10–27; TEMP 36.7–37.1; O2SAT 95–100; BMI 29.5
--- NOTE | ~2025-04-29 | CT_ITS ---
EXAMINATION: CT abdomen pelvis wo elva, 04/29/2025 14:18 CDT HISTORY: Abdominal pain COMPARISON: No comparisons available. TECHNIQUE: CT scan of the abdomen and pelvis was performed without IV contrast. One or more of the following dose reduction techniques were used: automated exposure control, adjustment of the mA and/or kV according to patient size, use of iterative reconstruction technique. Unless otherwise stated, incidental findings do not require dedicated follow up imaging FINDINGS: CT abdomen: LUNG BASES: The lung bases are clear. The visualized portions of the heart and pericardium are unremarkable. LIVER: Unremarkable, liver contours intact, no lesions. SPLEEN: Unremarkable, no splenomegaly. KIDNEYS: Right Kidney: Unremarkable. No calculi. No hydronephrosis. Left Kidney: Unremarkable. No calculi. No hydronephrosis ADRENAL GLANDS: Unremarkable. PANCREAS: Unremarkable. GALLBLADDER/BILIARY: Unremarkable. No biliary dilatation. STOMACH AND ESOPHAGUS: Visualized stomach and esophagus within normal limits. BOWEL/MESENTERY: Moderate fecal content, no colitis or diverticulitis. Appendix normal. Mesentery normal. No dilated small bowel loops. ADENOPATHY/RETROPERITONEUM: No lymphadenopathy. AORTA/VASCULATURE: Normal caliber aorta. FREE FLUID OR FREE AIR: None. CT pelvis: SOLID ORGANS/REPRODUCTIVE: Unremarkable. BLADDER: Within normal limits. OSSEOUS STRUCTURES: No acute osseous abnormality.No suspicious lesions. OVERLYING SOFT TISSUES: Unremarkable. IMPRESSION: 1. No acute intra-abdominal process Reviewed, dictated and finalized at location P.
--- NOTE | 2025-04-29 07:30 | ED.GENADULT ---
HPI - General Adult General Chief complaint: Recheck/Abnormal Lab/Rx Stated complaint: inc HR and inc BG History of Present Illness HPI narrative: 30-year-old female with history of type 1 diabetes presents to the emergency department for evaluation for tachycardia and elevated blood sugar. Patient was just admitted last week 04/18 for DKA. Patient states that since being discharged her tubing for her insulin pump broke and she is unable to get it refilled until tomorrow when her insurance kicks back in. Patient has been doing subcutaneous injections for insulin. Patient presents to the ED complaining rapid heart rate and high blood sugars in the 300s. Related Data Home Medications ?Medication ?Instructions ?Recorded ?Confirmed ?Last Taken ?Type ondansetron HCl 4 mg tablet 4 mg PO Q8H 04/18/25 04/29/25 04/18/25 History Allergies Allergy/AdvReac Type Severity Reaction Status Date / Time No Known Allergies Allergy Verified 04/18/25 17:41 Review of Systems Review of Systems: All systems reviewed & are unremarkable except as noted in HPI and below PMFSH Past Medical History Medical History Diabetes type 1 Family History Family History Grandparent Hypertension Breast cancer Social History Social History Smoking packs per day: 0.5 Smoking cigarettes per day: 10.0 Smoking status: Former smoker Second hand tobacco smoke exposure: Yes Alcohol intake: never Drinks per week: 1 Substance use: never Lack of Transportation: No Lack of Food: Never True Current Housing: I Have Housing Concerned About Future Housing: No Difficulty Paying Gas/Electric Bills: No Difficulty Paying for Meds: YES Currently Unemployed: No Education: High School Diploma/GED Difficulty w/ Childcare or Family Care: No Spiritual care concerns: No Exam Narrative: APPEARANCE: Well appearing, no pain, no distress, well-nourished. HEAD: normocephalic, atraumatic. EYES: PERRLA/EOMI, conjunctivae clear. NOSE: Normal no drainage EARS:TMS clear with good light reflex. THROAT: Pharynx clear, no exudate. NECK: Supple. No adenopathy, no masses. RESPIRATORY: Airway patent, respirations nonlabored. Clear to auscultation bilaterally, no rales, rhonchi, wheezing. CARDIOVASCULAR: Tachycardia ABDOMINAL: Soft, nontender, nondistended, normal bowel sounds MUSCULOSKELETAL: Moves all extremities. Strength/ROM intact, No edema, No calf tenderness. NEURO: Alert. Cranial nerves II through XII intact. Good gait. Good coordination SKIN: Warm, dry. Normal Color Course Vital Signs Vital signs: Vital Signs Temperature 98.3 F 04/29/25 07:24 Pulse Rate 110 H 04/29/25 07:24 Respiratory Rate 27 H 04/29/25 07:24 Blood Pressure 133/88 04/29/25 07:24 Pulse Oximetry 98 04/29/25 07:24 Oxygen Delivery Room Air 04/29/25 07:24 Temperature 98.7 F 04/29/25 10:00 Pulse Rate 91 04/29/25 13:00 Respiratory Rate 26 H 04/29/25 13:00 Blood Pressure 125/85 04/29/25 13:00 Pulse Oximetry 99 04/29/25 13:00 Oxygen Delivery Room Air 04/29/25 07:24 Medical Decision Making MDM Narrative Medical decision making narrative: 30-year-old female history of type 1 diabetes presents to the emergency department for evaluation for hyperglycemia and tachycardia. Admitted last week for DKA. Patient is currently afebrile but does have a leukocytosis 10.3 hemoglobin 14.1. Patient has an INR 1.1. Patient has a potassium 4.6 and anion gap of 30 and a blood glucose of 597. Patient was started on 2 L of lactated Ringer's, insulin bolus and insulin infusion. ABG was ordered. Case discussed with program advocate patient will be admitted to the [facility] for treatment DKA. Case discussed with hospitalist. Patient was updated the results of her workup patient is also comfortable plan for admission. Critical Care Procedure Note Authorized and Performed by: Jayce Boateng Total critical care time: Approximately 36 minutes Due to a high probability of clinically significant, life threatening deterioration, the patient required my highest level of preparedness to intervene emergently and I personally spent this critical care time directly and personally managing the patient. This critical care time included obtaining a history; examining the patient; pulse oximetry; ordering and review of studies; arranging urgent treatment with development of a management plan; evaluation of patient's response to treatment; frequent reassessment; and, discussions with other providers. This critical care time was performed to assess and manage the high probability of imminent, life-threatening deterioration that could result in multi-organ failure. It was exclusive of separately billable procedures and treating other patients and teaching time. Please see MDM section and the rest of the note for further information on patient assessment and treatment. Differential Diagnosis Differential Diagnosis: Pneumonia, COVID, RSV, influenza, UTI, diabetic noncompliance, hyperglycemia, DKA Vital Signs Vital Signs: Vital Signs Temperature 98.3 F 04/29/25 07:24 Pulse Rate 110 H 04/29/25 07:24 Respiratory Rate 27 H 04/29/25 07:24 Blood Pressure 133/88 04/29/25 07:24 Pulse Oximetry 98 04/29/25 07:24 Oxygen Delivery Room Air 04/29/25 07:24 Temperature 98.7 F 04/29/25 10:00 Pulse Rate 91 04/29/25 13:00 Respiratory Rate 26 H 04/29/25 13:00 Blood Pressure 125/85 04/29/25 13:00 Pulse Oximetry 99 04/29/25 13:00 Oxygen Delivery Room Air 04/29/25 07:24 Lab Data Lab results reviewed: Yes I reviewed the patient's lab results. 04/29/25 07:39 04/29/25 12:20 Labs: Lab Results 04/29/25 04/29/25 04/29/25 Range/Units 07:29 07:30 07:39 WBC 10.3 H (4.5-10.0) K/mm3 RBC 4.91 (4.2-5.4) M/mm3 Hgb 14.1 (12.0-15.0) g/dL Hct 43.1 (37.0-47.0) % MCV 87.8 (80-100) fl MCH 28.7 (26-34) pg MCHC 32.7 (32-36) g/dl RDW 12.6 (11.5-14.5) % Plt Count 484 H (150-375) k/mm3 MPV 9.8 (7.4-10.4) fl Immature Gran % (Auto) 0.4 (0-0.5) % Neut % (Auto) 67.3 (45.5-73.1) % Lymph % (Auto) 26.1 (18.3-44.2) % [place] % (Auto) 4.7 (2.6-8.5) % Eos % (Auto) 0.5 (0-4.4) % Baso % (Auto) 1.0 (0.2-1.2) % Lymph # (Auto) 2.69 (0.9-3.2) K/mm3 [place] # (Auto) 0.5 (0.1-0.6) K/mm3 Eos # (Auto) 0.1 (0-0.3) K/mm3 Baso # (Auto) 0.1 (0.0-0.1) K/mm3 Abs Immat Gran (auto) 0.04 H (0.00-0.031) K/mm3 Absolute Neuts (auto) 6.9 H (1.3-6.7) K/mm3 Absolute Nucleated RBC 0.000 (0.0-0.012) K/mm3 Nucleated RBC % 0.0 (0.0-0.2) % PT 14.0 (11.1-14.7) Seconds INR 1.1 APTT 21.7 L (22.3-36.8) Seconds Sodium 134 L (137-145) mmol/L Potassium 4.6 (3.4-5.0) mmol/L Chloride 96 L (98-107) mmol/L Carbon Dioxide 8 L (22-30) mmol/L Anion Gap 30 H (4-12) mmol/L BUN 16 D (7-17) mg/dL Creatinine 0.79 (0.7-1.0) mg/dL Estim Creat Clear Calc 96 ml/min Estimated GFR > 60 (59 - ) Glucose 597 H* (65-110) mg/dL POC Capillary Glucose > 500 H* (65-105) mg/dl Hemoglobin A1c 11.9 H (<5.7) % Lactic Acid 1.9 (0.7-2.0) mmol/L Calcium 9.2 (8.4-10.2) mg/dL Phosphorus 4.3 (2.5-4.5) mg/dL Magnesium 1.8 (1.6-2.3) mg/dL Total Bilirubin 0.9 (0.2-1.3) mg/dL AST 26 (14-36) U/L ALT 46 H (6-35) U/L Alkaline Phosphatase 155 H (38-126) U/L Total Protein 8.8 H (6.3-8.2) g/dL Albumin 4.8 (3.5-5.1) g/dL Lipase 43 (23-300) U/L Beta-Hydroxybutyrate/Acetoacetate 7.53 H (0.02-0.27) mmol/L Urine Color (Yellow) Urine Appearance (Clear) Urine pH (5.0-9.0) Ur Specific [place] (1.001-1.035) Urine Protein (Negative) mg/dL Urine Glucose (UA) (Negative) mg/dL Urine Ketones (Negative) mg/dL Ur Blood (Man) (Negative) Urine Nitrate (Negative) Urine Bilirubin (Negative) Urine Urobilinogen (<2.0) mg/dL Leukocyte Esterase Rfl (Negative) MATTHEW/UL Urine RBC (0-2) /hpf Urine WBC (0-3) /hpf Ur Squamous Epith Cells (Few) /hpf Urine Bacteria /hpf Urine Casts POC Urine HCG, Qual (Negative) Influenza A (RT-PCR) (Negative) Influenza B (RT-PCR) (Negative) RSV (RT-PCR) (Negative) SARS-CoV-2 RNA (RT-PCR) (Negative) 04/29/25 04/29/25 04/29/25 Range/Units 08:17 08:22 09:02 WBC (4.5-10.0) K/mm3 RBC (4.2-5.4) M/mm3 Hgb (12.0-15.0) g/dL Hct (37.0-47.0) % MCV (80-100) fl MCH (26-34) pg MCHC (32-36) g/dl RDW (11.5-14.5) % Plt Count (150-375) k/mm3 MPV (7.4-10.4) fl Immature Gran % (Auto) (0-0.5) % Neut % (Auto) (45.5-73.1) % Lymph % (Auto) (18.3-44.2) % [place] % (Auto) (2.6-8.5) % Eos % (Auto) (0-4.4) % Baso % (Auto) (0.2-1.2) % Lymph # (Auto) (0.9-3.2) K/mm3 [place] # (Auto) (0.1-0.6) K/mm3 Eos # (Auto) (0-0.3) K/mm3 Baso # (Auto) (0.0-0.1) K/mm3 Abs Immat Gran (auto) (0.00-0.031) K/mm3 Absolute Neuts (auto) (1.3-6.7) K/mm3 Absolute Nucleated RBC (0.0-0.012) K/mm3 Nucleated RBC % (0.0-0.2) % PT (11.1-14.7) Seconds INR APTT (22.3-36.8) Seconds Sodium (137-145) mmol/L Potassium (3.4-5.0) mmol/L Chloride (98-107) mmol/L Carbon Dioxide (22-30) mmol/L Anion Gap (4-12) mmol/L BUN (7-17) mg/dL Creatinine (0.7-1.0) mg/dL Estim Creat Clear Calc ml/min Estimated GFR (59 - ) Glucose (65-110) mg/dL POC Capillary Glucose (65-105) mg/dl Hemoglobin A1c (<5.7) % Lactic Acid (0.7-2.0) mmol/L Calcium (8.4-10.2) mg/dL Phosphorus (2.5-4.5) mg/dL Magnesium (1.6-2.3) mg/dL Total Bilirubin (0.2-1.3) mg/dL AST (14-36) U/L ALT (6-35) U/L Alkaline Phosphatase (38-126) U/L Total Protein (6.3-8.2) g/dL Albumin (3.5-5.1) g/dL Lipase (23-300) U/L Beta-Hydroxybutyrate/Acetoacetate (0.02-0.27) mmol/L Urine Color Yellow (Yellow) Urine Appearance Clear (Clear) Urine pH 5.0 (5.0-9.0) Ur Specific [place] 1.027 (1.001-1.035) Urine Protein Negative (Negative) mg/dL Urine Glucose (UA) 3+ H (Negative) mg/dL Urine Ketones 4+ H (Negative) mg/dL Ur Blood (Man) 3+ H (Negative) Urine Nitrate Negative (Negative) Urine Bilirubin Negative (Negative) Urine Urobilinogen 0.2 (<2.0) mg/dL Leukocyte Esterase Rfl Negative (Negative) MATTHEW/UL Urine RBC 3-5 H (0-2) /hpf Urine WBC 0-5 (0-3) /hpf Ur Squamous Epith Cells Occasional (Few) /hpf Urine Bacteria None seen /hpf Urine Casts 0-2 POC Urine HCG, Qual Negative (Negative) Influenza A (RT-PCR) Negative (Negative) Influenza B (RT-PCR) Negative (Negative) RSV (RT-PCR) Negative (Negative) SARS-CoV-2 RNA (RT-PCR) Negative (Negative) Critical Care Time Critical Care Time Critical Care Time: Yes Total Critical Care Time: 36 Discharge Plan Discharge Clinical Impression: DKA (diabetic ketoacidosis) Patient Disposition: Still a Patient Condition: Critical
--- OUTSIDE RECORDS SUMMARY | 2025-04-29 07:30 | XMS_ITS | Clinical Summary ---
Author Organization [facility] Address [address] [place] [address] Phone Care Team Providers Care Dishwasher Busser Name Role Phone Lamont Pete MD Primary Care Provider Allergies No known active allergies Medications Etonogestrel 68 MG Implant Active HYDROcodone-paola taminophen (NORCO) 5-325 MG Tablet Take 1-2 Tabs by mouth. 04/17/2019 Active amphetamine-dex troamphetamine (ADDERALL XR) 15 MG CAPSULE SR 24 HR Take 15 mg by mouth. 06/11/2019 Active Blood Glucose Monitoring Suppl (ACCU-CHEK EDD PLUS) w/Device Kit 1 Kit by Does not apply route daily. Use to test blood glucose 8-10 times per day. 1 Kit 07/18/2019 Active ACCU-CHEK FASTCLIX LANCETS Misc 1 Lancet by Does not apply route 6 times daily. Use to test blood glucose 8-10 times daily. 900 Lancet 3 07/18/2019 Active Glucose Blood (ACCU-CHEK EDD PLUS) Strip Use to test blood glucose 8-10 times per day. 900 Strip 3 07/18/2019 Active Glucose Blood (CONTOUR NEXT TEST) Strip Test blood glucose 6-8x daily. 600 Strip 3 11/27/2019 Active insulin lispro (HUMALOG) 100 UNIT/ML Solution Per insulin pump. 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 06/14/2018 Family History Medical History Relation Name Comments No Known Problems Father No Known Problems Mother Relation Name Status Comments Father Mother Social History Tobacco Use Types Packs/Day Years Used Date Smoking Tobacco: Never Smokeless Tobacco: Never Tobacco Cessation:Counseling Given: No Alcohol Use Standard Drinks/Week Comments No 0 (1 standard drink = 0.6 oz pur e alcohol) Sexually Active Control Partners Comments Yes Male Comments No Sex and Gender Information Value Date Recorded Sex Assigned at Not on file Legal Sex Female 7:15 PM CDT Gender Identity Not on file Sexual Orientation Not on file Last Filed Vital Signs Vital Sign Reading Time Taken Comments Blood Pressure 120/80 06/05/2020 8:31 AM [employer] Pulse 86 06/05/2020 8:31 AM [employer] Temperature 36.6 C (97.9 F) 06/05/2020 8:31 AM [employer] Respiratory Rate 16 06/05/2020 8:31 AM [employer] Oxygen Saturation 98% 06/05/2020 8:31 AM [employer] Inhaled Oxygen Concentration - - Weight 78 kg (172 lb) 06/05/2020 8:31 AM [employer] Height 162.6 cm (5' 4) 06/05/2020 8:31 AM [employer] Body Mass Index 29.52 06/05/2020 8:31 AM [employer]TER [employer]GMENT Plan of Treatment Health Maintenance Due Date Last Done Comments Diabetes: Foot Exam 1995 Hepatitis C Virus (HCV) Screening 1995 TdaP Immunization 1995 Hepatitis B Immunization (1 of 3 - 19+ 3-dose series) 2014 Pneumococcal Immunization Combined (1 of 2 - PCV) 2014 Pap Smear 01/10/2016 Diabetes: Eye Exam 02/17/2019 02/17/2018, 02/17/2018 Diabetes: Nephropathy Screening 02/02/2020 02/01/2019, 02/01/2019, 04/18/2017, Additional history exists Diabetes: Hemoglobin A1c 09/18/2021 021, 06/05/2020, 12/06/2019, Additional history exists Cervical Cancer Screening (CCS) 2025 HPV/Cotest 2025 Influenza Immunization (#1) 2025 SARS-COV-2 Immunization ( season) 2025 Respiratory Syncytial Virus (RSV) Immunization (Adult) (1 - 1-dose 75+ series) 2070 Human Papillomavirus (HPV) Immunization Completed 01/10/2008, 05/02/2007 Meningococcal Immunization (ACWY) Aged Out No longer eligible based on patient's age to complete this topic Rotavirus Immunization Aged Out No lo nger eligible based on patient's age to complete this topic Procedures Procedure Name Priority Date/Time Associated Diagnosis Comments POCT GLYCOSYLATED HEMOGLOBIN Routine 06/05/2020 8:43 AM [employer]TER [employer]GMENT Uncontrolled type 1 diabetes mellitus with hyperglycemia (HCC) UR MICROALBUMIN/CREATIN INE RATIO RANDOM Routine 02/01/2019 Uncontrolled type 1 diabetes mellitus with hyperglycemia (HCC) DILATED EYE EXAM Routine 02/17/2018 from Last 3 Months or Most Recently Relevant to Health Maintenance Results * (ABNORMAL) POCT GLYCOSYLATED HEMOGLOBIN (06/05/2020 8:43 AM FITTER [employer] SEGMENT) HGB-A1C 8.9(A) 4 - 6 06/05/2020 8:43 AM FITTER [employer] SEGMENT us Jason Galindo MD POINT OF CARE TESTING (MANUAL) F inal Result * UR MICROALBUMIN/CREATININE RATIO RANDOM (02/01/2019) ALB/CREAT RATIO 5 Normal - Normal Urine specimen (specimen) 02/01/2019 us Jason Galindo MD URINE ORDERABLES Final Result * DILATED EYE EXAM (02/17/2018) us Not On File Provider PROCEDURE/MINOR SURGICAL OR DERABLES Final Result from Last 3 Months or Most Recently Relevant to Health Maintenance Insurance [facility] Care Teams Dishwasher Busser Relationship Specialty Start Date End Date Lamont Pete MD [address] [place] [address] [place] [address] PCP - General Internal Medicine 03/20/17
--- OUTSIDE RECORDS SUMMARY | 2025-04-29 07:30 | XMS_ITS | Clinical Summary ---
Author Organization [facility] Address [address] [place] [address] Care Team Providers Care Core Analyst Name Role Phone Lamont Pete MD Primary Care Provider Cande Farooq MD Unavailable [phone] Allergies No known active allergies Medications etonogestrel (NEXPLANON) 68 mg implantIndication s: Contraception Active Contour Next Test Strips stripIndications: type 1 diabetes mellitus TEST BLOOD SUGAR 4-6 TIMES DAILY. USE WITH INSULIN PUMP COMPATIBLE GLUCOMETER. THE CONTOUR LINK BLOOD GLUCOSE METER IS THE ONLY METER THAT IS FDA APPROVED FOR USE WITH THE Vint 670G SYSTEM. 200 strip 5 05/25/20 22 Active blood-glucose sensor (Dexcom G6 Sensor) deviceIndications :type 2 diabetes mellitus 1 Device continuously Use to check glucose level continuously; change every 10 days. E10.65 9 each 08/29/19 23 Active Additional Information Patient [...] prescribed. Assessment & Plan (08/29/2022 4:04 PM RUBBER TIRE CURER): This is a chronic condition which is [...] therapy. Assessment & Plan (08/03/2021 11:10 AM RUBBER TIRE CURER): This is a chronic condition which is not at goal. Goal is less than 70. Personally reviewed lipid panel/LDL -92, currently not on statin, not at goal of less than 70 Encouraged to eat healthy, include fresh fruits and vegetables daily and avoid eating fried foods more than once per week. Please take medications as prescribed. Assessment & Plan (06/22/2021 11:42 AM RUBBER TIRE CURER): This is a chronic condition which is [...] Medtronics 670 G Insulin pump in place Overview (03/02/2023): Medtronic 670G- can upgrade on [...] download Assessment & Plan (08/29/2022 4:06 PM RUBBER TIRE CURER): This is a chronic condition which is improving but not at goal. Download reviewed. Type of insulin pump- Medtronics 670 G with Humalog 05-12-22 to 05-25-2022 Basal 0000-1.30, 5322-7668-1.85, 2100- 1.30 IC -5 ISF -25 Active [...] with Humalog 05-12-22 to 05-25-2022 Basal 0000-1.30, 9921-2536-1.85, 2100- 1.30 IC -5 ISF -25 Active [...] Medtronics 670 G with Humalog Basal 0000-1.30, 2621-6073-1.85, 2100- 1.30 IC -5 ISF -25 Active [...] Medtronics 670 G with Humalog Basal 0000-1.30, 4313-1422-1.85, 2100- 1.30 IC -5 ISF -25 Active [...] pump. Assessment & Plan (08/03/2021 11:30 AM RUBBER TIRE CURER): This is a chronic condition which is worsening, not at goal with hypoglycemia. Download reviewed. Type of insulin pump- Medtronics 670 G with Humalog Basal 0000-1.10, 0230-1.30, 4987-2224-1.85, 1900- 1.40 IC -5 ISF -25 Active [...] again. Assessment & Plan (06/22/2021 11:46 AM RUBBER TIRE CURER): This is a chronic condition which is worsening, not at goal with hypoglycemia. Download reviewed. Type of insulin pump- Medtronics 670 G with Humalog Basal 0000-1.10, 0230-1.30, 1361-5503-1.85, 1900- 1.40 IC -5 ISF -25 Active [...] not have sensor supplies. Will contact Bela jauregui for re education on insulin pump without a sensor. Assessment & Plan (03/18/2021 9:24 AM CDT): This is a chronic condition which is worsening, not at goal with hypoglycemia. Download reviewed. Type of insulin pump- Medtronics 670 G with Humalog Pump settings adjusted to reduce the 0500 hypoglycemic events. Basal 0000-1.10, 0230-1.30, 5011-2319-1.85, 1900- 1.40 IC -5 ISF -25 Active [...] Will order Dexcom Sensor. Melony Lainez from [employer] contacted for help in getting pump supplies covered. Assessment & Plan (12/14/2020 9:10 PM CDT): This is a chronic condition which is improving, but not at goal. Download reviewed. Type of insulin pump- Medtronics 670 G Pump settings adjusted: Basal 0000-1.20, 0230-1.30, 3832-9516-1.85, 1900- IC -5 ISF -25 Active insulin [...] 07/04/2019 Assessment & Plan (07/04/2019 8:39 AM RUBBER TIRE CURER): CXR ordered for further evaluation of indeterminate [...] 04/27/2018 Assessment & Plan (07/04/2019 8:41 AM RUBBER TIRE CURER): Work forms filled out in accordance of [...] sign forms any PPD reading on monday Coleen annulare 07/28/2017 Assessment & Plan (07/28/2017 8:30 AM RUBBER TIRE CURER): Recommended triamcinolone cream to apply twice daily [...] 05/23/2017 Assessment & Plan (08/10/2018 2:27 PM RUBBER TIRE CURER): Refill Adderall 15 mg q.day after checking the [facility] prescription monitoring program. Pt was strongly encouraged to keep follow-up visit here in a month certainly returning every month in order to obtain printed scripts Assessment & Plan (07/06/2018 3:26 PM RUBBER TIRE CURER): Cautiously increasing patient's adderall XR to 15mg [...] 670 G with humalog insulin. Basal 0000-1.3, 3819-5498-1.85, 2100- 1.30, IC -5, ISF -25, Active insulin time 3hrs. Target 100-120 Monitor blood sugar 4 times a day. Continuously with dexcom 6 sensor. Encouraged annual eye exam. Monofilament foot exam completed. protective senses intact Personally reviewed CMP eGFR- 123 Kidney function- normal Urine microalbumin/creatinine ratio - at goal <30 not treated with JOSFAAT/ARB B/P today- at goal of <140/90. Personally [...] therapy Assessment & Plan (08/29/2022 4:04 PM RUBBER TIRE CURER): This is a chronic condition which is [...] No history of macrovascular disease - CVA, ID. Assessment & Plan (05/25/2022 4:43 PM CDT): [...] No history of macrovascular disease - CVA, ID. Assessment & Plan (02/21/2022 3:15 PM CDT): [...] She was scheduled to meet with Bela Jauregui from [employer] but missed the appt. She is requesting [...] No history of macrovascular disease - CVA, ID. Assessment & Plan (11/01/2021 12:22 PM CDT): [...] No history of macrovascular disease - CVA, ID. Assessment & Plan (08/03/2021 11:28 AM RUBBER TIRE CURER): This is a chronic condition which is [...] No history of macrovascular disease - CVA, ID. Assessment & Plan (06/22/2021 11:42 AM RUBBER TIRE CURER): This is a chronic condition which is [...] No history of macrovascular disease - CVA, ID. Assessment & Plan (03/18/2021 9:17 AM CDT): [...] No history of macrovascular disease - CVA, ID. Assessment & Plan (12/14/2020 8:51 PM CDT): [...] No history of macrovascular disease - CVA, ID. Assessment & Plan (05/06/2020 9:59 AM CDT): Pt understands indications to call vendor management associate with ongoing elevations or certainly alert our office given elevations with acute infections. Cnt. To adjust bolus and basal insulin as necessary. Assessment & Plan (07/06/2018 3:19 PM RUBBER TIRE CURER): Continue with humalog sliding scale adjustments as advised by vendor management associate. Encouraged to monitor glucose levels while acute ill. F/u with specialist as advised. Assessment & Plan (07/28/2017 8:31 AM RUBBER TIRE CURER): I advised patient to keep a close [...] infection, we will send her to her vendor management associate to manage further Assessment & Plan (07/25/2017 2:45 PM RUBBER TIRE CURER): Given diabetes wll ask to get this re looked at frid. Watch sugar controll. And for signs of gettig worse. Assessment & Plan (07/06/2017 11:25 AM RUBBER TIRE CURER): Patient self reports that her glucose levels [...] 12/14/2020 Assessment & Plan (07/04/2019 8:39 AM RUBBER TIRE CURER): Recommending x-ray D/T acute trauma causing onset of pain, bruising. If x-ray negative, does just appear to be mild soft tissue injury, essentially sprain, which I recommended RICE therapy in the interim. Further direction pending results of x- ray. Abscess of right axilla 04/15/2019 05/ Assessment & Plan (04/19/2019 11:19 AM CDT): Abscess with successful I&D completed 2 days ago, dressing change provided today in clinic. She was encouraged to Cnt. With Bactrim, Keflex as prior advised pending results of wound culture which thus far has grown MRSA (which she has no Hx of) but awaiting for sensitivity report indicating need to chart changer. Wound care management was once again educated today in clinic, RTC here in 3 days to complete another dressing change. Wound care consultation was placed today for [facility] in hopes of getting current in the next week for remaining dressing changes. Assessment & Plan (04/17/2019 10:50 AM CDT): D/T multiple pocketing of furuncle, I&D procedure would not be successful in our clinic today. I did encourage Pt to present to ED for management. I did call over and speak to BETTY Stringer, at [facility] ED who was made aware of her [...] 07/04/2019 Assessment & Plan (08/10/2018 2:29 PM RUBBER TIRE CURER): Concerned of a possible tendinopathy/ tenosynovitis surrounding right them considering worsening pain and swelling with alme-ubb-hpneggr NSAIDs, rest, ice and heat, and bracing. [...] review Assessment & Plan (07/19/2018 9:24 AM RUBBER TIRE CURER): Acute tenosynovitis verses possible sprain of MCP [...] 07/19/2018 Assessment & Plan (07/06/2018 3:17 PM RUBBER TIRE CURER): Rapid strep and flu tests negative Acute [...] provided. Assessment & Plan (07/06/2018 3:18 PM RUBBER TIRE CURER): Recommended augmentin to take as prescribed with OTC probiotics. Pt was advised to use OTC antihistamines, increase fluids and humidification, and mucinex OTC for alleviate of congestion and cough. Indications to f/u in office given to patient BMI 30.0-30.9,adult 07/28/2017 07/19/20 Assessment & Plan (07/28/2017 8:30 AM RUBBER TIRE CURER): Recommended patient to continue to increase heart healthy diet with adequate fruits, vegetables, and plenty of water along with mild-moderate daily exercise as tolerated. Paronychia of great toe, left 07/25/2017 08/03/2017 Assessment & Plan (07/28/2017 8:29 AM RUBBER TIRE CURER): Continue on current dose of Augmentin adding on Cleocin 300 mg t.i.d. for 10 day course were going to see her here in 5 days to touch base and make sure that we are moving in the right direction regarding healing of wound/paronychia infection. I also advised her to take laax-tsl-nphhpga probiotics to assist with the side effects related to Cleocin certainly the beta-lactam with the Augmentin as well. I advised her to continue to soak in Epsom salts twice daily and keep it nice clean and dry with Dial soap and will follow up here in 5 days or sooner as needed Assessment & Plan (07/25/2017 2:42 PM RUBBER TIRE CURER): Wash with dial type soap. Massage in antibiotic cream or ointment. Do twice a day. Oral antibiotics. Start probiotic for stomack. augmentin drug Rx. Body mass index (bmi) 33.0-33.9, adult 07/06/2017 08/10/2018 Acute costochondritis 07/06/20172017 Assessment & Plan (07/06/2017 11:21 AM RUBBER TIRE CURER): Clinical presentation suggestive of a costochondritis without known etiology/trauma causing symptoms. I advised patient since she did not respond well to the NSAID ihzh-kob-[id number] we will try little Medrol Dosepak to [...] 07/06/201707/06 Assessment & Plan (07/06/2017 11:26 AM RUBBER TIRE CURER): Painful epidermal cyst on left tragus which [...] hyperglycemia given recent infection, and F/U with vendor management associate as scheduled. Assessment & Plan (04/17/2019 10:50 AM CDT): Stable, no notable elevations given worsening in infected right axilla abscess. Cnt. With current DM management, consistent carb diet, F/U with vendor management associate as scheduled. Further recommendations pending e.d. Evaluation Assessment & Plan (04/15/2019 3:37 PM CDT): Cnt. With current diabetic regimen as advised by vendor management associate. Cnt. To monitor for glucose levels with any notable elevation at or above 150 or signs of hyperglycemia to report office given acute infection. Assessment & Plan (01/07/2019 3:36 PM CDT): Glucose level steadily improving with treatment of infection, however I did encourage her to Cnt. To monitor while treating the infection as hyperglycemia does need to be corrected in call [facility]. Cnt. With current insulin adjustments as indicated by vendor management associate Assessment & Plan (01/01/2019 11:02 AM CDT): Hyperglycemia secondary to suspected infection. Adjust insulin dosage per sliding scale as advised by vendor management associate. I did encourage her to F/U with vendor management associate with any persistent hyperglycemia (after 2 days of abx) at or above 350, or suspect progressive infection Assessment & Plan (12/25/2018 1:15 PM CDT): Cnt. To monitor glucose levels while on tapering corticosteroids. Certainly correcting insulin per scale provided by vendor management associate. Pt was encouraged to call office with elevated glucose levels at or above 300. RTC here on Monday Encounters Date Type Department Care Team Description 04/18/2025 Orders Only [facility] Health Information Management [address] [place] [id number] Lamont Pete MD from Last 3 Months Immunizations Immunization Administration Dates Next Due DTaP [...] acture ADHD (attention deficit hyperactivity disorder) Diabetes Right foot injury, initial encounter 07/04/2019 Periorbital [...] on file Legal Sex Female 3:59 AM RUBBER TIRE CURER Gender Identity Not on file Sexual Orientation [...] 06/05/2020, 12/2019, 02/17/2018 Hemoglobin A1C 08/31/2023 02/28/2023, 10/29, 08/29/2022, Additional history exists Albumin Creatinine Ratio, Urine 09/02/2023 09/02/2022, 08/03/2021, 12/16/2020 Lipid Panel 09/02/2023 09/02/2022, 10/2021, 12/16/2020, Additional history exists TSH Level 09/02/2023 09/02/2022, 10/2021, 12/16/2020 eGFR 09/02/2023 09/02/2022, 10/2021, 12/16/2020, Additional history exists Cervical Cancer Screening 10/07/2023 10/06/2022, Regular Well Visit/Exam 18-64 10/07/2023, 06/16/2022, 12/07/2020, Additional history exists Foot Exam 07/03/2024 07/03/2023, 05/31, 06/14/2021, Additional history exists Depression Screening 10/15/2024 10/16/2023, 07/03/2023, 09/13/2022, Additional history exists Influenza Vaccine (#1) 2025 , 06/14/2021, 07/03/2020, Additional history exists DTaP/Tdap/Td Vaccine (8 - Td or Tdap) 01/01/2029 01/01/2019, 06/02/2006, 04/21/1999, Additional history exists Hepatitis B Screening Completed 1995 , 1995, 1995 Varicella Vaccines Completed 02/09/2007, 04/20/1998 HPV Vaccines Completed 01/10/2008, 09/2006, 02/09/2007 Hepatitis C Screening Completed 10/06/2022 Procedures Procedure Name Priority Date/Time Associated Diagnosis Comments SCAN - RADIOLOGY/IMAGING 04/18/2025 POCT HEMOGLOBIN A1C Routine 02/28/2023 4 :06 PM CDT Type 1 diabetes mellitus with hyperglycemia (HCC) PAP WITH REFLEX TO HIGH RISK HPV Routine 10/06/2022 2:45 PM RUBBER TIRE CURER Encounter for well woman exam with routine gynecological exam HEPATITIS PANEL, ACUTE Routine 10/06/2022 2:04 PM RUBBER TIRE CURER STI (sexually transmitted infection) EGFR Routine 09/02/2022 7:47 AM RUBBER TIRE CURER Type 1 diabetes mellitus with hyperglycemia (HCC) LIPID PANEL Routine 09/02/2022 7:47 AM RUBBER TIRE CURER Type 1 diabetes mellitus with hyperglycemia (HCC) ALBUMIN CREATININE RATIO, URINE Routine 09/02/2022 7:47 AM RUBBER TIRE CURER Type 1 diabetes mellitus with hyperglycemia (HCC) THYROID FUNCTION CASCADE Routine 09/02/2022 7:47 AM RUBBER TIRE CURER Type 1 diabetes mellitus with hyperglycemia (HCC) DIABETIC EYE EXAM Routine 06/05/2020 HM DIABETES FOOT EXAM Routine 12/03/2019 from Last 3 Months or Most Recently Relevant to Health Maintenance Results * SCAN - RADIOLOGY/IMAGING (04/18/2025) Anatomical Region Laterality Modality Other Lamont Pete MD Final R esult * (ABNORMAL) POCT hemoglobin A1c (02/28/2023 4:06 PM CDT) Hemoglobin A1C, POC 9.6 % Blood 02/28/2023 4:06 PM CDT Iva Cline NP POINT OF CARE TEST ORDERABLES F inal Result * Pap with reflex to High Risk HPV (10/06/2022 2:45 PM RUBBER TIRE CURER) CLINICAL INFORMATION: Sharita Pope Comment:Routine exam LMP [...] has been evaluated with computer assisted technology. Appraiser Timber Filippo Hagan Comment: DDS, CT(ASCP) CT screening location: [place] [address] [place], [place] [address] Comment Sharita Pope Comment: EXPLANATORY NOTE: The [...] clinical information. Thin prep 10/06/2022 2:45 PM RUBBER TIRE CURER 10/07/2022 3:48 AM RUBBER TIRE CURER Cande Farooq MD LAB CYTOLOGY ORDERABLES F inal Result [facility] [address] [place] [address] * Hepatitis panel, acute (10/06/2022 2:04 PM RUBBER TIRE CURER) Hep A IgM NON-REACTI VE NON-REACT ANAM [facility] Comment: For additional information, please refer to http://Proteopure.[employer] Stats.[employer]lyotech/faq/GBK543 (This link is being provided for informational/ [...] a test for HCV RNA (test code 03705) is suggested. For additional information please refer to http://Prote[employer] Stats.[employer]/faq/KDV66z9 (This link is being provided for informational/ educational purposes only.) Blood 10/06/2022 2:04 PM RUBBER TIRE CURER 10/06/2022 2:06 PM RUBBER TIRE CURER Narrative [facility] - 10/07/2022 3:33 PM RUBBER TIRE CURER PATIENT UNABLE TO VOID; ADVISED TO RETURN FOR COLLECTION. Cande Farooq MD LAB MICROBIOLOGY - GENERA L ORDERABLES Final Result Performing Organization Address [facility] Co de Phone Number [facility] [address] [address] * eGFR (09/02/2022 7:47 AM RUBBER TIRE CURER) eGFR 123 mL/min/1. 73 m2 [facility] ([place] Comment: Interpretive Data Reference Interval Normal >/= [...] last reviewed 2021. Blood 09/02/2022 7:47 AM RUBBER TIRE CURER 09/02/2022 9:04 AM RUBBER TIRE CURER Iva Cline NP LAB BLOOD ORDERABLES Final Resu lt Performing Organization Address [facility] Co de Phone Number [facility] 1 [facility] Department [place] [address] * TSH reflex to free T4 (09/02/2022 7:47 AM RUBBER TIRE CURER) TSH 1.60 0.30 - 4.20 mcIUnit/mL [facility] Blood 09/02/2022 7:47 AM RUBBER TIRE CURER 09/02/2022 9:04 AM RUBBER TIRE CURER Iva Cline NP LAB BLOOD ORDERABLES Final Resu lt Performing Organization Address [facility] Co de Phone Number [facility] ([place]) 1 [facility] Department [place] [address] * Albumin Creatinine Ratio, Urine (09/02/2022 7:47 AM RUBBER TIRE CURER) Albumin Ur <12.0 mg/L [facility] ([place]) Comment: Interpretive Data No reference range established. Current interpretive data was last revised 2018. Testing performed by: [address] [address] Creatinine Ur 151.2 mg/dL [facility] ([place]) Comment: Interpretive Data No reference range established. Current interpretive data was last revised 2018. Testing performed by: [address] [address] Albumin Creatinine Ratio, Ur <8 1 - 29 mg/g [facility] ([place]) Comment:Testing performed by : [address], [address] Urine 09/02/2022 7:47 AM RUBBER TIRE CURER 09/02/2022 7:48 PM RUBBER TIRE CURER us Iva Cline DUDE WRANGLER LAB URINE ORDERABLES Final Resu lt Performing Organization Address [facility] Co de Phone Number [facility] ([place]) 1 [facility] Department [place] [employer] [address] * Lipid panel (09/02/2022 7:47 AM RUBBER TIRE CURER) Cholesterol 170 30 - 199 mg/dL [facility] ([place]) Comment: Interpretive Data Ages < or [...] last revised on 2018. Chol/HDL ratio 3 [facility] ([place]) Blood 09/02/2022 7:47 AM RUBBER TIRE CURER 09/02/2022 9:04 AM RUBBER TIRE CURER Narrative [facility] ([place]) - 09/02/2022 9:40 AM RUBBER TIRE CURER These lab test should be done fasting. This means do not eat or drink for at least 12 hours prior to getting your blood drawn. Iva Cline NP LAB BLOOD ORDERABLES Final Resu lt [facility]ARIE JULIAN ([place]) 1 [facility] Department [place] [address] * Diabetic Eye Exam (06/05/2020) Historical Provider HEALTH MAINTENANCE Final Result * DIABETES FOOT EXAM (12/03/2019) Diabetic Foot Exam Normal Historical Provider HEALTH MAINTENANCE Final Result from Last 3 Months or Most Recently Relevant to Health Maintenance [facility] [employer] PPO [facility] Member Subscriber Plan / Payer (Ef fective 2021-Present) Name:Davy Melyssa L Relation to Subscriber:Self Name:Davy Melyssa L Payer ID:[id number] (NAIC) Group ID:Not on file Type:MEDICAID RISK OTHER Address: ATTN: CLAIMS DEPT [address] CHOICE [employer] Care Teams Core Analyst Relationship Specialty Start Date End Date Lamont Pete MD PCP - General 10/28/16 [place] [address] [place] [address] Consulting Physician Obstetrics and Gynecology 08/24/21
[2025-04-29] MEDS: LACTATED RINGERS 1,000 ML 999 ML IV CONT ×3 (07:39→12:26)
[2025-04-29 07:46] LABS: Hematocrit 43.1 % (37.0-47.0); Hemoglobin 14.1 g/dL (12.0-15.0); Immature Granulocyte Percent A 0.4 % (0-0.5); Lymphocytes Absolute Auto 2.69 K/mm3 (0.9-3.2); Mean Corpuscular HGB Conc 32.7 g/dl (32-36); Mean Corpuscular Hemoglobin 28.7 pg (26-34); Mean Corpuscular Volume 87.8 fl (80-100); Nucleated Red Blood Cells Absolute Auto 0.000 K/mm3 (0.0-0.012); Nucleated Red Blood Cells Perc 0.0 % (0.0-0.2); Platelet Count Result 484 k/mm3 (150-375); Red Blood Count 4.91 M/mm3 (4.2-5.4); White Blood Count 10.3 K/mm3 (4.5-10.0)
[2025-04-29 08:10] LABS: INR 1.1; Partial Thromboplastin Time 21.7 Seconds (22.3-36.8); Prothrombin Time 14.0 Seconds (11.1-14.7)
[2025-04-29 08:16] LABS: Alanine Aminotransferase 46 U/L (6-35); Albumin Level 4.8 g/dL (3.5-5.1); Alkaline Phosphatase 155 U/L (38-126); Anion Gap 30 mmol/L (4-12); Aspartate Amino Transferase 26 U/L (14-36); Bilirubin,Total 0.9 mg/dL (0.2-1.3); Blood Urea Nitrogen 16 mg/dL (7-17); Calcium 9.2 mg/dL (8.4-10.2); Carbon Dioxide 8 mmol/L (22-30); Chloride 96 mmol/L (98-107); Estimated CRCL calculation 96 ml/min; Estimated Glomerular Filt Rate > 60; Glucose 597 mg/dL (65-110); Potassium 4.6 mmol/L (3.4-5.0); Sodium 134 mmol/L (137-145); Total Protein 8.8 g/dL (6.3-8.2)
[2025-04-29 08:24] LABS: BEDSIDEPREGUCG Negative (Negative)
[2025-04-29 08:31] LABS: Add Urine Microscopic? YES; Appearance Urine Clear (Clear); Glucose Urine UA 3+ mg/dL (Negative); Leukocyte Esterase Ur Negative LEU/UL (Negative); Nitrate Urine Negative (Negative); Non Pathogenic Casts 0-2; Specific Grav Ur 1.027 (1.001-1.035)
[2025-04-29 08:35] LABS: Magnesium 1.8 mg/dL (1.6-2.3)
[2025-04-29 08:44] LABS: Beta-Hydroxybutyrate/Acetoace. 7.53 mmol/L (0.02-0.27)
[2025-04-29] MEDS: INSULIN HUMAN REGULAR (*BKC) 100 UNITS in SODIUM CHLORIDE 0.9% IV 99 ML 8.3 UNITS IV CONT (08:59)
[2025-04-29] MEDS: INSULIN HUMAN REGULAR (*BKC) 100 UNITS/ML 12.4 UNITS IV PUSH (09:01)
[2025-04-29 09:14] LABS: Hemoglobin A1C 11.9 % (<5.7)
--- NOTE | 2025-04-29 09:32 | PCRCNOTE ---
ABG late due to having to transport another pt
[2025-04-29] MEDS: SODIUM CHLORIDE 0.9% IV 1,000 ML 150 ML IV CONT (09:33)
[2025-04-29 09:34] LABS: Alveolar/Arterial O2 Gradient 11.8 mmHg; Carboxyhemoglobin 1.0 % THb (0-2.0); Fractional Inspired Oxygen 21 %; HCO3 ABG 10.8 mEq/l (22.0-26.0); Methemoglobin ABG 0.2 %THb (0-1.5); Oxygen Content ABG 19.4 %vol (16.0-22.0); Oxygen Saturation ABG 97.0 % (95.0-100.0); PCO2 ABG 26.6 mmHg (35.0-45.0); PO2 ABG 106.1 mmHg (80.0-100.0); PO2 FiO2 Ratio Arterial Blood 5.05 %; Reduced Hemoglobin 2.3 %THb (0-5.0)
[2025-04-29 09:38] LABS: Modified Allen's Test Pass; Site Drawn RIGHT RADIAL
[2025-04-29 09:43] LABS: Influenza A QL RT-PCR Negative (Negative); Influenza B QL RT-PCR Negative (Negative); RSV RNA, RT-PCR Negative (Negative); SARS-CoV-2 RNA PCR Negative (Negative)
--- NOTE | 2025-04-29 10:50 | WPDCNINT ---
Assessment and Plan Assessment and plan (1) DKA (diabetic ketoacidosis): Code(s): E11.10 - Type 2 diabetes mellitus with ketoacidosis without coma Status: Acute Assessment and Plan: DKA secondary to noncompliance Pt was given IVF bolus and started on IV fluid infusion which will be continued Insulin infusion started and Q1H glucose monitoring is being done Serial labs ordered Replace electrolytes as needed NPO Dietitian and nutrition educator consult (2) Abdominal pain: Code(s): R10.9 - Unspecified abdominal pain Status: Acute Assessment and Plan: Could be secondary to DKA Alkaline phosphatase is elevated Check CT scan Plan DVT prophylaxis -SCD Nutrition - NPO Code Status - Full Code Total Critical Care Time - 30 minutes Due to a high probability of clinically significant, life threatening deterioration, the patient required my highest level of preparedness to intervene emergently and I personally spent this critical care time directly and personally managing the patient. This critical care time included obtaining a history; examining the patient; pulse oximetry; ordering and review of studies; arranging urgent treatment with development of a management plan; evaluation of patient's response to treatment; frequent reassessment; and discussions with other providers. It was exclusive of separately billable procedures and treating other patients and teaching time. Please see Assessment and Plan section and the rest of the note for further information on patient assessment and treatment Cnc Milling Machinist Consult Note Consult date: 04/29/25 Reason for consult: DKA HPI: Melyssa Cortez is a 30 year old female with past medical history of type 1 diabetes who is on insulin pump and was just discharged 10 days ago from [facility] after treatment for DKA presented back to ER with chief complaint of fast heart rate and elevated blood sugar level. Patient states that she ran out of her insulin pump supplies and due to insurance coverage issues she was not able to get them refilled in time. The last time she was on pump was 3 days ago. After that she started giving herself subcutaneous Humalog 3 times a day with meals. She was giving herself approximately 8 units every time. She states her sugars have been running close to 50. But over last couple days she started feeling sick. Today she had some dry mouth and feeling of heart racing fast. She also had some abdominal pain off and off and today it was continuous in the epigastric and left upper quadrant. Hence she presented to the ER. Patient denies fever, chest pain, shortness of breath, cough, nausea vomiting, , diarrhea, headache or constipation. She states her dental pain has resolved. She denies any dysuria hematuria. All other systems were reviewed and were negative Workup in the ER showed WBC 10.3 ABG 7.22/26/106/10.8 Carbon dioxide 8 anion gap 30 blood glucose 597 Beta hydroxybutyrate 7.53 UA negative for UTI test was negative Review of Systems Review of Systems: All systems reviewed & are unremarkable except as noted in HPI and below (HPI) [facility] Past Medical History Medical History Diabetes type 1 Family History Family History Grandparent Hypertension Breast cancer Social History Social History Smoking packs per day: 0.5 Smoking cigarettes per day: 10.0 Smoking status: Former smoker Second hand tobacco smoke exposure: Yes Alcohol intake: never Drinks per week: 1 Substance use: never Lack of Transportation: No Lack of Food: Never True Current Housing: I Have Housing Concerned About Future Housing: No Difficulty Paying Gas/Electric Bills: No Difficulty Paying for Meds: YES Currently Unemployed: No Education: High School Diploma/GED Difficulty w/ Childcare or Family Care: No Spiritual care concerns: No Meds Home Medications and Allergies Home Medications ?Medication ?Instructions ?Recorded ?Confirmed ?Type amoxicillin 875 mg-potassium 1 tablet PO Q12H #20 tabs 12/13/23 04/18/25 Rx clavulanate 125 mg tablet ondansetron HCl 4 mg tablet 4 mg PO Q8H 04/18/25 04/18/25 History blood sugar diagnostic (OneTouch #1 [facility] 04/20/25 Rx Verio test strips) blood-glucose meter (OneTouch #1 [facility] 04/20/25 Rx Verio Flex Meter) insulin syringe,safety needle 0.5 #1 [facility] 04/20/25 Rx mL 31 gauge x 12/13 lancets 30 gauge (OneTouch Delica #1 pk 04/20/25 Rx Plus Lancet) pen needle, diabetic 32 gauge x #1 pkg 04/20/25 Rx Allergies Allergy/AdvReac Type Severity Reaction Status Date / Time No Known Allergies Allergy Verified 04/18/25 17:41 Vital Signs Vital Signs - 24 hr 04/29/25 07:24 04/29/25 07:48 04/29/25 08:00 Temperature 36.8 C Pulse Rate 110 H 106 H 103 H Respiratory Rate 27 H 22 H 23 H Blood Pressure 133/88 Pulse Oximetry 98 98 99 Oxygen Delivery Room Air 04/29/25 08:01 04/29/25 08:18 04/29/25 08:30 Temperature Pulse Rate 102 H 104 H 102 H Respiratory Rate 22 H 20 21 H Blood Pressure 122/79 Pulse Oximetry 99 100 98 Oxygen Delivery 04/29/25 08:46 04/29/25 09:00 04/29/25 09:04 Temperature Pulse Rate 101 H 116 H 117 H Respiratory Rate 21 H 27 H 16 Blood Pressure 142/87 H Pulse Oximetry 99 100 98 Oxygen Delivery 04/29/25 09:31 04/29/25 10:00 04/29/25 10:00 Temperature 36.7 C 36.7 C Pulse Rate 112 H 111 H 110 H Respiratory Rate 10 L 20 Blood Pressure 142/95 H 147/84 H 142/95 H Pulse Oximetry 98 97 Oxygen Delivery 04/29/25 10:00 04/29/25 10:00 Temperature 37.1 C Pulse Rate 112 H 113 H Respiratory Rate 18 Blood Pressure 132/80 Pulse Oximetry 97 Oxygen Delivery Exam Narrative: General: Pt is alert awake and in NAD Lungs/Chest: Trachea central Clear BS B/L, No crackles or wheezing. Cardiac: RRR. Normal S1 S2. No murmurs Circulation: Pedal pulses are intact and symmetrical. Abdomen: Normal bowel sounds.. Soft. NT. ND. Extremities: No clubbing, cyanosis or edema. Warm : [place] in place Neurologic: Follows commands. Moves all 4 extremities PERRL Skin: No Rash Results Labs 04/29/25 07:39 04/29/25 07:39 Labs: Short CBC 04/29/25 Range/Units 07:39 WBC 10.3 H (4.5-10.0) K/mm3 Hgb 14.1 (12.0-15.0) g/dL Hct 43.1 (37.0-47.0) % Plt Count 484 H (150-375) k/mm3 BMP 04/29/25 07:39 Sodium 134 L Potassium 4.6 Chloride 96 L Carbon Dioxide 8 L BUN 16 D Creatinine 0.79 Glucose 597 H* Calcium 9.2 Liver Function 04/29/25 Range/Units 07:39 Total Bilirubin 0.9 (0.2-1.3) mg/dL AST 26 (14-36) U/L ALT 46 H (6-35) U/L Alkaline Phosphatase 155 H (38-126) U/L Albumin 4.8 (3.5-5.1) g/dL Urine 04/29/25 Range/Units 08:17 Urine Color Yellow (Yellow) Urine Appearance Clear (Clear) Urine pH 5.0 (5.0-9.0) Ur Specific [place] 1.027 (1.001-1.035) Urine Protein Negative (Negative) mg/dL Urine Glucose (UA) 3+ H (Negative) mg/dL Quality VTE Prophylaxis VTE prophylaxis: mechanical ordered Hospitalist MIPS Advance Care Plan I have confirmed that the patient's Advanced Care Plan is present, code status is documented, or surrogate decision maker is listed in patient medical record.: Yes Medication Reconciliation I have utilized all available resources to obtain, update and review the patients current medications (includes all prescriptions, OTC, herbals, cannabis, and nutritional supplements).: Yes
--- NOTE | 2025-04-29 10:59 | PC.NURSE ---
Patient arrives to the floor via stretcher from the ER at approximately 1000am. Insulin drip infusing and Normal saline infusing (see eMAR). States that she ran out of insulin supplies and insulin at home and insurance doesn't kick in until tomorrow, so unable to get supplies at this time. Patient is noted to be alert and oriented at this time. Follows all commands. groundwater monitoring technician placed on patient and functioning. Blood glucose obtained per protocol. No acute distress noted at this time. Denies pain at this time.
[2025-04-29 11:32] LABS: Lipase 43 U/L (23-300)
--- NOTE | 2025-04-29 12:16 | P.HP_ITS ---
H&P: HPI History of Present Illness Date/Time: 04/29/25 12:16 Chief Complaint: High blood sugar Narrative: 30-year-old female with type 1 diabetes presents the hospital with tachycardia and elevated blood sugars.Of note patient was in the hospital from 04/18/2025- 04/20/2025 due to DKA, at the time she was using her insulin pump but did not have a glucose reader. Patient states that she was prescribed glucometer on discharge and insulin however due to not having insurance till April 30 she was unable to afford the supplies. She states that she was still getting some insulin however she was not able to use her pump due to not having insulin refill for it. She does complain of acute abdominal pain sharp in nature and constant. Denies dental pain, burning with urination or shortness of breath. Lab work in the ED shows white count of 10.3, ABG of 7.22, pCO2 26, PO2 106, bicarb a 10, sodium of 134, chloride of 96, carbon dioxide it 8, anion gap 30, glucose 597, hemoglobin A1c 11.9 AST 46, alkaline phos 155, total protein 8.8, beta hydroxybutyrate is 7.53, UA is negative for infection, influenza A/B, RSV and COVID negative. CT abdomen pelvis with no acute findings. Review of Systems Review of Systems: 12 systems were reviewed and are negativ e except for as per HPI. [facility] Past Medical History Medical History Diabetes type 1 Family History Family History Grandparent Hypertension Breast cancer Social History Social History Smoking packs per day: 0.5 Smoking cigarettes per day: 10.0 Smoking status: Former smoker Second hand tobacco smoke exposure: Yes Alcohol intake: never Drinks per week: 1 Substance use: never Lack of Transportation: No Lack of Food: Never True Current Housing: I Have Housing Concerned About Future Housing: No Difficulty Paying Gas/Electric Bills: No Difficulty Paying for Meds: YES Currently Unemployed: No Education: High School Diploma/GED Difficulty w/ Childcare or Family Care: No Spiritual care concerns: No Meds Home Medications and Allergies Home Medications ?Medication ?Instructions ?Recorded ?Confirmed ?Type amoxicillin 875 mg-potassium 1 tablet PO Q12H #20 tabs 12/13/23 04/29/25 Rx clavulanate 125 mg tablet ondansetron HCl 4 mg tablet 4 mg PO Q8H 04/18/2504/29 [facility] 04/20/2504/29 Rx Verio test strips) blood-glucose meter ([facility] #[address] [facility] 04/20/25 04/29/25 Rx Verio Flex Meter) insulin syringe,safety needle 0.5 #[address] [facility] 04/20/2504/02 Rx mL 31 gauge x 5/16 lancets 30 gauge ([facility] Delica #[address] [facility] 04/20/2504/02 Rx Plus Lancet) pen needle, diabetic 32 gauge x #[address] [facility] 04/20/25 Rx 5/32 Allergies Allergy/AdvReac Type Severity Reaction Status Date / Time No Known Allergies Allergy Verified 04/18/25 17:41 Vital Signs Vital Signs - 24 hr 04/29/25 07:24 04/29/25 07:48 04/29/25 08:00 Temperature 98.3 F Pulse Rate 110 H 106 H 103 H Respiratory Rate 27 H 22 H 23 H Blood Pressure 133/88 Pulse Oximetry 98 98 99 Oxygen Delivery Room Air 04/29/25 08:01 04/29/25 08:18 04/29/25 08:30 Temperature Pulse Rate 102 H 104 H 102 H Respiratory Rate 22 H 20 21 H Blood Pressure 122/79 Pulse Oximetry 99 100 98 Oxygen Delivery 04/29/25 08:46 04/29/25 09:00 04/29/25 09:04 Temperature Pulse Rate 101 H 116 H 117 H Respiratory Rate 21 H 27 H 16 Blood Pressure 142/87 H Pulse Oximetry 99 100 98 Oxygen Delivery 04/29/25 09:31 04/29/25 10:00 04/29/25 10:00 Temperature 98.0 F 98.0 F Pulse Rate 112 H 111 H 110 H Respiratory Rate 10 L 20 Blood Pressure 142/95 H 147/84 H 142/95 H Pulse Oximetry 98 97 Oxygen Delivery 04/29/25 10:00 04/29/25 10:00 04/29/25 11:00 Temperature 98.7 F Pulse Rate 112 H 113 H 110 H Respiratory Rate 18 18 Blood Pressure 132/80 148/98 H Pulse Oximetry 97 95 Oxygen Delivery Exam Narrative: General: well appearing, appears stated age. HEENT: normocephalic, atraumatic. Mucous membranes moist. EOMI, PERRLA, bilateral sclera anicteric, no conjunctival injection. Neck supple without JVD, lymphadenopathy, or bruit. Respiratory: clear to ascultation bilaterally. No rales/rhonic/wheezes. Cardiovascular: Regular rate and rhythm, normal S1-S2 upon ascultation. No murmurs, rubs, or clicks. PMI is nondisplaced, capillary refill less than 3 second. Abdomen: Soft, round, no pulsatile masses, nondistended and nontender. No rebound, no guarding. No CVA tenderness, no hepatosplenomegaly. Bowel sounds present to all four quadrants. No high pitch or tinkling sounds, resonant to percussion. Extremities: No cyanosis, clubbing, or edema present. Pulses are palpable 2/2. Active ROM to all four extremities. Neuro: Alert and orientated x 4. PERRLA. Cranial nerves 2-12 intact without focal deficit. Skin: Warm, dry, and intact, without rash, erythema, or lesion. Psych: pleasant, cooperative, normal speech, normal affect, no hallucinations, no dysarthia H&P: Results Labs Labs: Short CBC 04/29/25 Range/Units 07:39 WBC 10.3 H (4.5-10.0) K/mm3 Hgb 14.1 (12.0-15.0) g/dL Hct 43.1 (37.0-47.0) % Plt Count 484 H (150-375) k/mm3 [facility] 04/29/25 07:39 Sodium 134 L Potassium 4.6 Chloride 96 L Carbon Dioxide 8 L BUN 16 D Creatinine 0.79 Glucose 597 H* Calcium 9.2 Liver Function 04/29/25 Range/Units 07:39 Total Bilirubin 0.9 (0.2-1.3) mg/dL AST 26 (14-36) U/L ALT 46 H (6-35) U/L Alkaline Phosphatase 155 H (38-126) U/L Albumin 4.8 (3.5-5.1) g/dL Urine 04/29/25 Range/Units 08:17 Urine Color Yellow (Yellow) Urine Appearance Clear (Clear) Urine pH 5.0 (5.0-9.0) Ur Specific [place] 1.027 (1.001-1.035) Urine Protein Negative (Negative) mg/dL Urine Glucose (UA) 3+ H (Negative) mg/dL Assessment and Plan Assessment and plan (1) DKA (diabetic ketoacidosis): Code(s): E11.10 - Type 2 diabetes mellitus with ketoacidosis without coma Status: Acute Assessment and Plan: Admit to ICU DKA protocol KELIN bran [facility] Dietitian and conservation educator consulted Q.4 BMP (2) Diabetes type 1: Code(s): E10.9 - Type 1 diabetes mellitus without complications Status: Acute Assessment and Plan: community nutrition educator Care coordination consult for financial assistance obtaining medications Patient states that her insurance start April 30 (3) Leukocytosis: Code(s): D72.829 - Elevated white blood cell count, unspecified Status: Acute Assessment and Plan: UA negative for infection CT abdomen pelvis no acute findings No signs for infection holding off on antibiotics at this time (4) Transaminase or LDH elevation: Status: Acute Assessment and Plan: Repeat CMP in the morning (5) Abdominal pain: Code(s): R10.9 - Unspecified abdominal pain Status: Acute Assessment and Plan: CT abdomen pelvis no acute finding GI cocktail relieved pain (6) Heartburn: Code(s): R12 - Heartburn Status: Acute Assessment and Plan: Protonix Carafate Quality VTE Prophylaxis VTE prophylaxis: mechanical ordered Hospitalist MIPS Advance Care Plan I have confirmed that the patient's Advanced Care Plan is present, code status is documented, or surrogate decision maker is listed in patient medical record.: Yes Medication Reconciliation I have utilized all available resources to obtain, update and review the patients current medications (includes all prescriptions, OTC, herbals, cannabis, and nutritional supplements).: Yes
[2025-04-29 12:49] LABS: Anion Gap 14 mmol/L (4-12); Blood Urea Nitrogen 12 mg/dL (7-17); Calcium 8.7 mg/dL (8.4-10.2); Carbon Dioxide 18 mmol/L (22-30); Chloride 103 mmol/L (98-107); Estimated CRCL calculation 124 ml/min; Estimated Glomerular Filt Rate > 60; Glucose 238 mg/dL (65-110); Potassium 4.3 mmol/L (3.4-5.0); Sodium 135 mmol/L (137-145)
[2025-04-29] MEDS: DEXTROSE 5%/0.45% SOD CHL 1,000 ML 150 ML IV CONT (13:25)
[2025-04-29 17:14] LABS: Anion Gap 10 mmol/L (4-12); Blood Urea Nitrogen 9 mg/dL (7-17); Calcium 8.2 mg/dL (8.4-10.2); Carbon Dioxide 21 mmol/L (22-30); Chloride 103 mmol/L (98-107); Estimated CRCL calculation 132 ml/min; Estimated Glomerular Filt Rate > 60; Glucose 269 mg/dL (65-110); Potassium 4.1 mmol/L (3.4-5.0); Sodium 134 mmol/L (137-145)
[2025-04-29] MEDS: KCL 20 MEQ/D5/0.45% SOD CHL 1,000 ML 150 ML IV CONT (20:08)
[2025-04-29] MEDS: BELLADONNA ALK/PHENOB ELIX 10 ML, MAG HYDROX/ALUMINUM HYD/SIMETH 30 ML, LIDOCAINE 2% VI... PO (20:41)
[2025-04-29 20:42] LABS: Anion Gap 11 mmol/L (4-12); Blood Urea Nitrogen 8 mg/dL (7-17); Calcium 8.4 mg/dL (8.4-10.2); Carbon Dioxide 20 mmol/L (22-30); Chloride 104 mmol/L (98-107); Estimated CRCL calculation 141 ml/min; Estimated Glomerular Filt Rate > 60; Glucose 224 mg/dL (65-110); Potassium 3.5 mmol/L (3.4-5.0); Sodium 135 mmol/L (137-145)
[2025-04-30] VITALS (8 sets, daily range): BP systolic 102–136; BP diastolic 60–87; PULSE 63–96; RESP 14–23; TEMP 36.2–37; O2SAT 96–100; BMI 30.2
[2025-04-30 00:44] LABS: Anion Gap 7 mmol/L (4-12); Blood Urea Nitrogen 7 mg/dL (7-17); Calcium 8.2 mg/dL (8.4-10.2); Carbon Dioxide 23 mmol/L (22-30); Chloride 104 mmol/L (98-107); Estimated CRCL calculation 134 ml/min; Estimated Glomerular Filt Rate > 60; Glucose 233 mg/dL (65-110); Potassium 3.7 mmol/L (3.4-5.0); Sodium 134 mmol/L (137-145)
[2025-04-30] MEDS: SODIUM CHLORIDE 0.9% IV 1,000 ML 150 ML IV CONT (01:05)
[2025-04-30] MEDS: KCL 20 MEQ/D5/0.45% SOD CHL 1,000 ML 150 ML IV CONT (03:50)
[2025-04-30 04:36] LABS: Hematocrit 34.4 % (37.0-47.0); Hemoglobin 11.4 g/dL (12.0-15.0); Mean Corpuscular HGB Conc 33.1 g/dl (32-36); Mean Corpuscular Hemoglobin 28.8 pg (26-34); Mean Corpuscular Volume 86.9 fl (80-100); Platelet Count Result 337 k/mm3 (150-375); Red Blood Count 3.96 M/mm3 (4.2-5.4); White Blood Count 10.2 K/mm3 (4.5-10.0)
[2025-04-30 04:47] LABS: Alanine Aminotransferase 27 U/L (6-35); Albumin Level 3.4 g/dL (3.5-5.1); Alkaline Phosphatase 89 U/L (38-126); Anion Gap 5 mmol/L (4-12); Aspartate Amino Transferase 19 U/L (14-36); Bilirubin,Total 0.5 mg/dL (0.2-1.3); Blood Urea Nitrogen 6 mg/dL (7-17); Calcium 8.1 mg/dL (8.4-10.2); Carbon Dioxide 23 mmol/L (22-30); Chloride 107 mmol/L (98-107); Estimated CRCL calculation 141 ml/min; Estimated Glomerular Filt Rate > 60; Glucose 205 mg/dL (65-110); Magnesium 1.8 mg/dL (1.6-2.3); Potassium 4.0 mmol/L (3.4-5.0); Sodium 135 mmol/L (137-145); Total Protein 6.4 g/dL (6.3-8.2)
[2025-04-30] MEDS: SUCRALFATE SUSP 100 MG/ML 10 ML UDC 1000 MG PO ×2 (07:11→20:58)
[2025-04-30] MEDS: INSULIN GLARGINE (*BKC) 100 UNITS/ML 25 UNITS SUB-Q (09:06)
[2025-04-30] MEDS: PANTOPRAZOLE SODIUM IV 40 MG VIAL IV PUSH ×2 (09:07→20:58)
[2025-04-30] MEDS: POTASSIUM/PHOSPHORUS/SODIUM 1.5 GM PACKET 1 PACKET PO (09:07)
--- NOTE | 2025-04-30 09:38 | WPDINTPN ---
Progress Note: A&P Assessment and Plan (1) DKA (diabetic ketoacidosis): Code(s): E11.10 - Type 2 diabetes mellitus with ketoacidosis without coma Status: Acute Assessment and Plan: DKA secondary to noncompliance Pt was given IVF bolus and started on IV fluid infusion which will be continued Insulin infusion started and Q1H glucose monitoring is being done Serial labs ordered Anion gap has closed and I will transition patient to subcutaneous insulin and start her on diet Dietitian and paraeducator consulted (2) Abdominal pain: Code(s): R10.9 - Unspecified abdominal pain Status: Acute Assessment and Plan: Likely secondary to DKA Alkaline phosphatase is elevated Lipase normal CT abdomen pelvis normal Plan DVT prophylaxis -SCD, I anticipate patient will be ambulating today Nutrition -start diabetic diet Code Status - Full Code Transfer out of ICU today Subjective Date/time seen: 04/30/25 Patient states overall she feels better and denies any new complaints. She states abdominal pain has improved significantly but has not fully resolved. Patient denies fever, chest pain, shortness of breath, cough, nausea vomiting,,, diarrhea, headache or constipation. She states she is ready to eat. Afebrile. Vital signs stable. Good urine output. Review of Systems Review of Systems: All systems reviewed & are unremarkable except as noted in HPI and below (HPI) Exam Narrative: General: Pt is alert awake and in NAD Lungs/Chest: Trachea central Clear BS B/L, No crackles or wheezing. Cardiac: RRR. Normal S1 S2. No murmurs Circulation: Pedal pulses are intact and symmetrical. Abdomen: Normal bowel sounds.. Soft. NT. ND. Extremities: No clubbing, cyanosis or edema. Warm : [place] in place Neurologic: Follows commands. Moves all 4 extremities PERRL Skin: No Rash Objective Data Vital Signs Vital Signs: Vital Signs - 24 hr 04/29/25 10:04/29/25 10:00 04/29/25 10:00 Temperature 36.7 C Pulse Rate 111 H 110 H 112 H Respiratory Rate 20 Blood Pressure 147/84 H 142/95 H Pulse Oximetry 97 Oxygen Delivery 04/29/25 10:04/29/25 11:00 04/29/25 12:00 Temperature 37.1 C Pulse Rate 113 H 110 H 99 Respiratory Rate 18 18 Blood Pressure 132/80 148/98 H Pulse Oximetry 97 95 Oxygen Delivery 04/29/25 12:00 04/29/25 13:00 04/29/25 14:00 Temperature Pulse Rate 99 91 91 Respiratory Rate 16 26 H Blood Pressure 125/96 H 125/85 Pulse Oximetry 97 99 Oxygen Delivery 04/29/25 14:00 04/29/25 16:00 04/29/25 16:00 Temperature 37.0 C 37.0 C Pulse Rate 91 83 83 Respiratory Rate 21 H 22 H Blood Pressure 119/78 117/80 Pulse Oximetry 96 97 Oxygen Delivery 04/29/25 16:00 04/29/25 17:00 04/29/25 18:00 Temperature Pulse Rate 83 97 86 Respiratory Rate 22 H 20 Blood Pressure 152/103 H Pulse Oximetry 97 98 Oxygen Delivery Room Air 04/29/25 18:00 04/29/25 20:00 04/29/25 20:00 Temperature 36.9 C Pulse Rate 86 84 Respiratory Rate 21 H 23 H Blood Pressure 146/95 H 109/75 Pulse Oximetry 98 98 Oxygen Delivery Room Air 04/29/25 20:00 04/29/25 22:00 04/29/25 22:00 Temperature Pulse Rate 82 73 73 Respiratory Rate 20 Blood Pressure 106/69 Pulse Oximetry 97 Oxygen Delivery 04/30/25 00:00 04/30/25 00:00 04/30/25 00:00 Temperature 36.7 C Pulse Rate 63 63 Respiratory Rate 18 Blood Pressure 117/75 Pulse Oximetry 97 Oxygen Delivery Room Air 04/30/25 02:00 04/30/25 02:00 04/30/25 04:00 Temperature 36.9 C Pulse Rate 69 69 72 Respiratory Rate 20 20 Blood Pressure 127/82 102/60 Pulse Oximetry 98 97 Oxygen Delivery 04/30/25 04:00 04/30/25 04:00 04/30/25 06:00 Temperature Pulse Rate 64 70 Respiratory Rate Blood Pressure Pulse Oximetry Oxygen Delivery Room Air 04/30/25 06:00 Temperature Pulse Rate 70 Respiratory Rate 21 H Blood Pressure 120/73 Pulse Oximetry 96 Oxygen Delivery Intake/Output Intake/Output: Intake & Output 04/27/25 04/28/25 04/29/25 04/30/25 23:59 23:59 23:59 23:59 Intake Total 4049.3 1289.0 Output Total 450 1200 Balance 3599.3 89.0 Meds/Results Medications: Active Medications Generic Name Dose Route Start Last Admin Trade Name Freq PRN Reason Stop Dose Admin Dextrose 12.5 gm 04/29/25 08:16 Dextrose 50% 25 Gm/50 Ml Syringe IV PUSH PRN PRN Hypoglycemia Protocol Glucagon 1 mg 04/29/25 08:16 Glucagon For Inj 1 Mg Vial IM PRN PRN Hypoglycemia Protocol Glucose 15 gm 04/29/25 08:16 Glucose Oral Gel 15 Gm Of Glucse In 37.5 Gm Tube PO PRN PRN Hypoglycemia Protocol Insulin Human Regular 100 100 mls @ 3 mls/hr 04/29/25 08:45 04/30/25 08:32 units/ Sodium Chloride IV CONT 3 units/hr .Q24H SUPA 3 mls/hr Protocol Titration 3 UNITS/HR Dextrose 1,000 mls @ 100 mls/hr 04/29/25 08:16 Dextrose 5% 1,000 Ml IVPB PRN PRN Hypoglycemia Protocol Sodium Chloride 1,000 mls @ 150 mls/hr 04/29/25 09:20 04/30/25 02:04 Normal Saline Iv IV CONT 0 mls/hr .Q6H40M SUPA Infusion Potassium Chloride/Dextrose/Sod Cl 1,000 mls @ 150 mls/hr 04/29/25 13:10 04/30/25 03:50 Kcl 20 Meq/D5/0.45% Sod Chl IV CONT 150 mls/hr .Q6H40M SUPA Administration Dextrose/Sodium Chloride 1,000 mls @ 150 mls/hr 04/29/25 13:10 04/29/25 20:00 Dextrose 5% Sodium Chloride 0.45% IV CONT 0 mls/hr .Q6H40M SUPA Infusion Insulin Aspart 5 units 04/30/25 08:00 04/30/25 09:13 Insulin Aspart (*Bkc) 100 Units/Ml SUB-Q Not Given TIDWM SUPA Insulin Aspart 3 - 6 units 04/30/25 08:00 04/30/25 09:14 Insulin Aspart (*Bkc) 100 Units/Ml SUB-Q Not Given TIDWM [facility] Protocol Insulin Aspart 1 - 3 units 04/30/25 21:00 Insulin Aspart (*Bkc) 100 Units/Ml SUB-Q HS [facility] Protocol Insulin Glargine 25 units 04/30/25 08:25 04/30/25 09:34 Insulin Glargine (*Bkc) 100 Units/Ml SUB-Q Not Given QAM SUPA Pantoprazole Sodium 40 mg 04/30/25 09:00 04/30/25 09:07 Pantoprazole Sodium Iv 40 Mg Vial IV PUSH 40 mg Q12HR SUPA Administration Potassium Phos/Sodium Phos 1 packet 04/30/25 09:00 04/30/25 09:07 Potassium/Phosphorus/Sodium 1.5 Gm Packet PO 04/30/25 17:01 1 packet BID SUPA Administration Sucralfate 1,000 mg 04/30/25 07:00 04/30/25 07:11 Sucralfate Susp 100 Mg/Ml 10 Ml Udc PO 1,000 mg 0700,1100,1600,2100 SUPA Administration Radiology Results: ITS Impressions Abdomen/Pelvis CT 04/29/25 14:25 IMPRESSION: 1. No acute intra-abdominal process Labs Labs: Laboratory Results - last 24 hr 04/29/25 04/29/25 04/29/25 07:39 09:02 09:18 WBC RBC Hgb Hct MCV MCH MCHC RDW Plt Count MPV Puncture Site Right radial ABG pH 7.228 L* O2 Delivery Device Room air O2 Liters/Min Not Reportable Sodium Potassium Chloride Carbon Dioxide Anion Gap BUN Creatinine Estim Creat Clear Calc Estimated GFR Glucose POC Capillary Glucose Calcium Phosphorus Magnesium Total Bilirubin AST ALT Alkaline Phosphatase Total Protein Albumin Lipase 43 Influenza A (RT-PCR) Negative Influenza B (RT-PCR) Negative RSV (RT-PCR) Negative SARS-CoV-2 RNA (RT-PCR) Negative 04/29/25 04/29/25 04/29/25 10:02 11:04 12:00 WBC RBC Hgb Hct MCV MCH MCHC RDW Plt Count MPV Puncture Site ABG pH O2 Delivery Device O2 Liters/Min Sodium Potassium Chloride Carbon Dioxide Anion Gap BUN Creatinine Estim Creat Clear Calc Estimated GFR Glucose POC Capillary Glucose 342 H 261 H 253 H Calcium Phosphorus Magnesium Total Bilirubin AST ALT Alkaline Phosphatase Total Protein Albumin Lipase Influenza A (RT-PCR) Influenza B (RT-PCR) RSV (RT-PCR) SARS-CoV-2 RNA (RT-PCR) 04/29/25 04/29/25 04/29/25 12:20 13:03 14:03 WBC RBC Hgb Hct MCV MCH MCHC RDW Plt Count MPV Puncture Site ABG pH O2 Delivery Device O2 Liters/Min Sodium 135 L Potassium 4.3 Chloride 103 Carbon Dioxide 18 L Anion Gap 14 H BUN 12 Creatinine 0.59 L Estim Creat Clear Calc 124 Estimated GFR > 60 Glucose 238 H POC Capillary Glucose 216 H 204 H Calcium 8.7 Phosphorus Magnesium Total Bilirubin AST ALT Alkaline Phosphatase Total Protein Albumin Lipase Influenza A (RT-PCR) Influenza B (RT-PCR) RSV (RT-PCR) SARS-CoV-2 RNA (RT-PCR) 04/29/25 04/29/25 04/29/25 15:09 16:11 16:52 WBC RBC Hgb Hct MCV MCH MCHC RDW Plt Count MPV Puncture Site ABG pH O2 Delivery Device O2 Liters/Min Sodium 134 L Potassium 4.1 Chloride 103 Carbon Dioxide 21 L Anion Gap 10 BUN 9 Creatinine 0.55 L Estim Creat Clear Calc 132 Estimated GFR > 60 Glucose 269 H POC Capillary Glucose 202 H 245 H Calcium 8.2 L Phosphorus Magnesium Total Bilirubin AST ALT Alkaline Phosphatase Total Protein Albumin Lipase Influenza A (RT-PCR) Influenza B (RT-PCR) RSV (RT-PCR) SARS-CoV-2 RNA (RT-PCR) 04/29/25 04/29/25 04/29/25 17:10 18:01 18:46 WBC RBC Hgb Hct MCV MCH MCHC RDW Plt Count MPV Puncture Site ABG pH O2 Delivery Device O2 Liters/Min Sodium Potassium Chloride Carbon Dioxide Anion Gap BUN Creatinine Estim Creat Clear Calc Estimated GFR Glucose POC Capillary Glucose 274 H 309 H 306 H Calcium Phosphorus Magnesium Total Bilirubin AST ALT Alkaline Phosphatase Total Protein Albumin Lipase Influenza A (RT-PCR) Influenza B (RT-PCR) RSV (RT-PCR) SARS-CoV-2 RNA (RT-PCR) 04/29/25 04/29/25 04/29/25 20:05 20:22 20:57 WBC RBC Hgb Hct MCV MCH MCHC RDW Plt Count MPV Puncture Site ABG pH O2 Delivery Device O2 Liters/Min Sodium 135 L Potassium 3.5 Chloride 104 Carbon Dioxide 20 L Anion Gap 11 BUN 8 Creatinine 0.51 L Estim Creat Clear Calc 141 Estimated GFR > 60 Glucose 224 H POC Capillary Glucose 242 H 194 H Calcium 8.4 Phosphorus Magnesium Total Bilirubin AST ALT Alkaline Phosphatase Total Protein Albumin Lipase Influenza A (RT-PCR) Influenza B (RT-PCR) RSV (RT-PCR) SARS-CoV-2 RNA (RT-PCR) 04/29/25 04/29/25 04/30/25 22:05 23:10 00:02 WBC RBC Hgb Hct MCV MCH MCHC RDW Plt Count MPV Puncture Site ABG pH O2 Delivery Device O2 Liters/Min Sodium Potassium Chloride Carbon Dioxide Anion Gap BUN Creatinine Estim Creat Clear Calc Estimated GFR Glucose POC Capillary Glucose 216 H 208 H 227 H Calcium Phosphorus Magnesium Total Bilirubin AST ALT Alkaline Phosphatase Total Protein Albumin Lipase Influenza A (RT-PCR) Influenza B (RT-PCR) RSV (RT-PCR) SARS-CoV-2 RNA (RT-PCR) 04/30/25 04/30/25 04/30/25 00:23 01:06 02:03 WBC RBC Hgb Hct MCV MCH MCHC RDW Plt Count MPV Puncture Site ABG pH O2 Delivery Device O2 Liters/Min Sodium 134 L Potassium 3.7 Chloride 104 Carbon Dioxide 23 Anion Gap 7 BUN 7 Creatinine 0.54 L Estim Creat Clear Calc 134 Estimated GFR > 60 Glucose 233 H POC Capillary Glucose 254 H 214 H Calcium 8.2 L Phosphorus Magnesium Total Bilirubin AST ALT Alkaline Phosphatase Total Protein Albumin Lipase Influenza A (RT-PCR) Influenza B (RT-PCR) RSV (RT-PCR) SARS-CoV-2 RNA (RT-PCR) 04/30/25 04/30/25 04/30/25 03:06 04:09 04:27 WBC 10.2 H RBC 3.96 L Hgb 11.4 L Hct 34.4 L MCV 86.9 MCH 28.8 MCHC 33.1 RDW 13.0 Plt Count 337 MPV 9.2 Puncture Site ABG pH O2 Delivery Device O2 Liters/Min Sodium 135 L Potassium 4.0 Chloride 107 Carbon Dioxide 23 Anion Gap 5 BUN 6 L Creatinine 0.51 L Estim Creat Clear Calc 141 Estimated GFR > 60 Glucose 205 H POC Capillary Glucose 210 H 208 H Calcium 8.1 L Phosphorus 1.9 L Magnesium 1.8 Total Bilirubin 0.5 AST 19 ALT 27 Alkaline Phosphatase 89 Total Protein 6.4 Albumin 3.4 L Lipase Influenza A (RT-PCR) Influenza B (RT-PCR) RSV (RT-PCR) SARS-CoV-2 RNA (RT-PCR) 04/30/25 04/30/25 04/30/25 05:15 06:02 06:38 WBC RBC Hgb Hct MCV MCH MCHC RDW Plt Count MPV Puncture Site ABG pH O2 Delivery Device O2 Liters/Min Sodium Potassium Chloride Carbon Dioxide Anion Gap BUN Creatinine Estim Creat Clear Calc Estimated GFR Glucose POC Capillary Glucose 192 H 223 H 266 H Calcium Phosphorus Magnesium Total Bilirubin AST ALT Alkaline Phosphatase Total Protein Albumin Lipase Influenza A (RT-PCR) Influenza B (RT-PCR) RSV (RT-PCR) SARS-CoV-2 RNA (RT-PCR) 04/30/25 04/30/25 04/30/25 07:34 08:31 09:10 WBC RBC Hgb Hct MCV MCH MCHC RDW Plt Count MPV Puncture Site ABG pH O2 Delivery Device O2 Liters/Min Sodium Potassium Chloride Carbon Dioxide Anion Gap BUN Creatinine Estim Creat Clear Calc Estimated GFR Glucose POC Capillary Glucose 237 H 254 H 212 H Calcium Phosphorus Magnesium Total Bilirubin AST ALT Alkaline Phosphatase Total Protein Albumin Lipase Influenza A (RT-PCR) Influenza B (RT-PCR) RSV (RT-PCR) SARS-CoV-2 RNA (RT-PCR) Quality VTE Prophylaxis VTE prophylaxis: mechanical ordered
[2025-04-30] MEDS: INSULIN ASPART (*BKC) 100 UNITS/ML SUB-Q ×5 (11:48→20:58)
--- NOTE | 2025-04-30 13:35 | P.PNIM_ITS ---
Progress Note: A&P Assessment and Plan (1) DKA (diabetic ketoacidosis): Code(s): E11.10 - Type 2 diabetes mellitus with ketoacidosis without coma Status: Acute (2) Diabetes type 1: Code(s): E10.9 - Type 1 diabetes mellitus without complications Status: Acute (3) Heartburn: Code(s): R12 - Heartburn Status: Acute Plan 30-year-old female with type 1 diabetes presents the hospital with tachycardia and elevated blood sugars.Of note patient was in the hospital from 04/18/2025- 04/20/2025 due to DKA, at the time she was using her insulin pump but did not have a glucose reader. Admitted to ICU with diabetic ketoacidosis, was started on insulin drip. Anion gap has closed. Has been transition to subcutaneous insulin. (1) DKA (diabetic ketoacidosis): DKA secondary to noncompliance Anion gap has closed Patient has been transitioned to subcutaneous insulin Blood glucose checked t.i.d. a.c. and HS Continue with Lantus, continue with mealtime insulin along with sliding scale insulin Hypoglycemia treatment per protocol Adjust insulin doses as needed Dietitian and plastic surgery assistant consulted (2) Abdominal pain: Likely secondary to DKA Alkaline phosphatase is elevated Lipase normal CT abdomen pelvis normal Continue with PPI, Carafate 3. Code status: Full 4. DVT prophylaxis: SCDs 5. Disposition: Plan to transfer out of ICU today Time Spent With Patient Time: 37 mins Subjective Date/time seen: 04/30/25 13:35 Interval history: Complains of abdominal pain, no nausea, vomiting Transition to subcutaneous insulin/basal bolus regimen Review of Systems Review of Systems: All systems reviewed & are unremarkable except as noted in HPI and below Exam Narrative: General: NAD Lungs/Chest: Bilateral clear to auscultation Cardiac: RRR. Normal S1 S2. No murmurs Abdomen: Normal bowel sounds.. Soft. Mild tenderness in epigastrium Extremities: No edema. Warm Neurologic: Awake alert oriented x3 Skin: No Rash Objective Data Vital Signs Vital Signs: Vital Signs - 24 hr 04/29/25 14:00 04/29/25 14:00 04/29/25 16:00 Temperature 98.6 F Pulse Rate 91 91 83 Respiratory Rate 21 H Blood Pressure 119/78 Pulse Oximetry 96 Oxygen Delivery 04/29/25 16:00 04/29/25 16:00 04/29/25 17:00 Temperature 98.6 F Pulse Rate 83 83 97 Respiratory Rate 22 H 22 H 20 Blood Pressure 117/80 152/103 H Pulse Oximetry 97 97 98 Oxygen Delivery Room Air 04/29/25 18:00 04/29/25 18:00 04/29/25 20:00 Temperature Pulse Rate 86 86 Respiratory Rate 21 H Blood Pressure 146/95 H Pulse Oximetry 98 Oxygen Delivery Room Air 04/29/25 20:00 04/29/25 20:00 04/29/25 22:00 Temperature 98.4 F Pulse Rate 84 82 73 Respiratory Rate 23 H 20 Blood Pressure 109/75 106/69 Pulse Oximetry 98 97 Oxygen Delivery 04/29/25 22:00 04/30/25 00:00 04/30/25 00:00 Temperature Pulse Rate 73 63 Respiratory Rate Blood Pressure Pulse Oximetry Oxygen Delivery Room Air 04/30/25 00:00 04/30/25 02:00 04/30/25 02:00 Temperature 98.1 F Pulse Rate 63 69 69 Respiratory Rate 18 20 Blood Pressure 117/75 127/82 Pulse Oximetry 97 98 Oxygen Delivery 04/30/25 04:00 04/30/25 04:00 04/30/25 04:00 Temperature 98.4 F Pulse Rate 72 64 Respiratory Rate 20 Blood Pressure 102/60 Pulse Oximetry 97 Oxygen Delivery Room Air 04/30/25 06:00 04/30/25 06:00 04/30/25 08:00 Temperature 98.4 F Pulse Rate 70 70 79 Respiratory Rate 21 H 19 Blood Pressure 120/73 121/74 Pulse Oximetry 96 98 Oxygen Delivery 04/30/25 08:00 04/30/25 10:00 04/30/25 10:00 Temperature Pulse Rate 81 81 81 Respiratory Rate 23 H Blood Pressure 109/77 Pulse Oximetry 98 Oxygen Delivery Intake/Output Intake/Output: Intake & Output 04/27/25 04/28/25 04/29/25 04/30/25 23:59 23:59 23:59 23:59 Intake Total 4049.3 2009.0 Output Total 450 1600 Balance 3599.3 409.0 Meds/Results Medications: Active Medications Generic Name Dose Route Start Last Admin Trade Name Freq PRN Reason Stop Dose Admin Dextrose 12.5 gm 04/29/25 08:16 Dextrose 50% 25 Gm/50 Ml Syringe IV PUSH PRN PRN Hypoglycemia Protocol Glucagon 1 mg 04/29/25 08:16 Glucagon For Inj 1 Mg Vial IM PRN PRN Hypoglycemia Protocol Glucose 15 gm 04/29/25 08:16 Glucose Oral Gel 15 Gm Of Glucse In 37.5 Gm Tube PO PRN PRN Hypoglycemia Protocol Dextrose 1,000 mls @ 100 mls/hr 04/29/25 08:16 Dextrose 5% 1,000 Ml IVPB PRN PRN Hypoglycemia Protocol Insulin Aspart 5 units 04/30/25 08:00 04/30/25 11:48 Insulin Aspart (*Bkc) 100 Units/Ml SUB-Q 5 units TIDWM SUPA Administration Insulin Aspart 3 - 6 units 04/30/25 08:00 04/30/25 11:49 Insulin Aspart (*Bkc) 100 Units/Ml SUB-Q 4 units TIDWM SUPA Administration Protocol Insulin Aspart 1 - 3 units 04/30/25 21:00 Insulin Aspart (*Bkc) 100 Units/Ml SUB-Q HS [facility] Protocol Insulin Glargine 25 units 04/30/25 08:25 04/30/25 09:34 Insulin Glargine (*Bkc) 100 Units/Ml SUB-Q Not Given QAM SUPA Pantoprazole Sodium 40 mg 04/30/25 09:00 04/30/25 09:07 Pantoprazole Sodium Iv 40 Mg Vial IV PUSH 40 mg Q12HR SUPA Administration Potassium Phos/Sodium Phos 1 packet 04/30/25 09:00 04/30/25 09:07 Potassium/Phosphorus/Sodium 1.5 Gm Packet PO 04/30/25 17:01 1 packet BID SUPA Administration Sucralfate 1,000 mg 04/30/25 07:00 04/30/25 11:49 Sucralfate Susp 100 Mg/Ml 10 Ml Udc PO Not Given 0700,1100,1600,2100 [facility] Radiology Results: ITS Impressions Abdomen/Pelvis CT 04/29/25 14:25 IMPRESSION: 1. No acute intra-abdominal process Labs Labs: Laboratory Results - last 24 hr 04/29/25 04/29/25 04/29/25 14:03 15:09 16:11 WBC RBC Hgb Hct MCV MCH MCHC RDW Plt Count MPV Sodium Potassium Chloride Carbon Dioxide Anion Gap BUN Creatinine Estim Creat Clear Calc Estimated GFR Glucose POC Capillary Glucose 204 H 202 H 245 H Calcium Phosphorus Magnesium Total Bilirubin AST ALT Alkaline Phosphatase Total Protein Albumin 04/29/25 04/29/25 04/29/25 16:52 17:10 18:01 WBC RBC Hgb Hct MCV MCH MCHC RDW Plt Count MPV Sodium 134 L Potassium 4.1 Chloride 103 Carbon Dioxide 21 L Anion Gap 10 BUN 9 Creatinine 0.55 L Estim Creat Clear Calc 132 Estimated GFR > 60 Glucose 269 H POC Capillary Glucose 274 H 309 H Calcium 8.2 L Phosphorus Magnesium Total Bilirubin AST ALT Alkaline Phosphatase Total Protein Albumin 04/29/25 04/29/25 04/29/25 18:46 20:05 20:22 WBC RBC Hgb Hct MCV MCH MCHC RDW Plt Count MPV Sodium 135 L Potassium 3.5 Chloride 104 Carbon Dioxide 20 L Anion Gap 11 BUN 8 Creatinine 0.51 L Estim Creat Clear Calc 141 Estimated GFR > 60 Glucose 224 H POC Capillary Glucose 306 H 242 H Calcium 8.4 Phosphorus Magnesium Total Bilirubin AST ALT Alkaline Phosphatase Total Protein Albumin 04/29/25 04/29/25 04/29/25 20:57 22:05 23:10 WBC RBC Hgb Hct MCV MCH MCHC RDW Plt Count MPV Sodium Potassium Chloride Carbon Dioxide Anion Gap BUN Creatinine Estim Creat Clear Calc Estimated GFR Glucose POC Capillary Glucose 194 H 216 H 208 H Calcium Phosphorus Magnesium Total Bilirubin AST ALT Alkaline Phosphatase Total Protein Albumin 04/30/25 04/30/25 04/30/25 00:02 00:23 01:06 WBC RBC Hgb Hct MCV MCH MCHC RDW Plt Count MPV Sodium 134 L Potassium 3.7 Chloride 104 Carbon Dioxide 23 Anion Gap 7 BUN 7 Creatinine 0.54 L Estim Creat Clear Calc 134 Estimated GFR > 60 Glucose 233 H POC Capillary Glucose 227 H 254 H Calcium 8.2 L Phosphorus Magnesium Total Bilirubin AST ALT Alkaline Phosphatase Total Protein Albumin 04/30/25 04/30/25 04/30/25 02:03 03:06 04:09 WBC RBC Hgb Hct MCV MCH MCHC RDW Plt Count MPV Sodium Potassium Chloride Carbon Dioxide Anion Gap BUN Creatinine Estim Creat Clear Calc Estimated GFR Glucose POC Capillary Glucose 214 H 210 H 208 H Calcium Phosphorus Magnesium Total Bilirubin AST ALT Alkaline Phosphatase Total Protein Albumin 04/30/25 04/30/25 04/30/25 04:27 05:15 06:02 WBC 10.2 H RBC 3.96 L Hgb 11.4 L Hct 34.4 L MCV 86.9 MCH 28.8 MCHC 33.1 RDW 13.0 Plt Count 337 MPV 9.2 Sodium 135 L Potassium 4.0 Chloride 107 Carbon Dioxide 23 Anion Gap 5 BUN 6 L Creatinine 0.51 L Estim Creat Clear Calc 141 Estimated GFR > 60 Glucose 205 H POC Capillary Glucose 192 H 223 H Calcium 8.1 L Phosphorus 1.9 L Magnesium 1.8 Total Bilirubin 0.5 AST 19 ALT 27 Alkaline Phosphatase 89 Total Protein 6.4 Albumin 3.4 L 04/30/25 04/30/25 04/30/25 06:38 07:34 08:31 WBC RBC Hgb Hct MCV MCH MCHC RDW Plt Count MPV Sodium Potassium Chloride Carbon Dioxide Anion Gap BUN Creatinine Estim Creat Clear Calc Estimated GFR Glucose POC Capillary Glucose 266 H 237 H 254 H Calcium Phosphorus Magnesium Total Bilirubin AST ALT Alkaline Phosphatase Total Protein Albumin 04/30/25 04/30/25 04/30/25 09:10 10:46 11:22 WBC RBC Hgb Hct MCV MCH MCHC RDW Plt Count MPV Sodium Potassium Chloride Carbon Dioxide Anion Gap BUN Creatinine Estim Creat Clear Calc Estimated GFR Glucose POC Capillary Glucose 212 H 230 H 261 H Calcium Phosphorus Magnesium Total Bilirubin AST ALT Alkaline Phosphatase Total Protein Albumin Quality VTE Prophylaxis VTE prophylaxis: mechanical ordered
--- NOTE | 2025-04-30 16:14 | PC.NURSE ---
Report given to Trish. Patient being transferred to room 325-2.
--- NOTE | 2025-04-30 17:00 | PC.NURSE ---
This patient, Melyssa Cortez, was transferred to [facility] on 04/30/25 at 1630. Personal belongings sent with patient. Report given to Trish. Appropriate documentation sent with patient.
[2025-05-01 05:18] VITALS: BP 122/84; PULSE 73; RESP 14; TEMP 36.2; O2SAT 97
[2025-05-01] MEDS: SUCRALFATE SUSP 100 MG/ML 10 ML UDC 1000 MG PO (06:02)
[2025-05-01 06:32] LABS: Hematocrit 37.6 % (37.0-47.0); Hemoglobin 12.2 g/dL (12.0-15.0); Mean Corpuscular HGB Conc 32.4 g/dl (32-36); Mean Corpuscular Hemoglobin 28.5 pg (26-34); Mean Corpuscular Volume 87.9 fl (80-100); Platelet Count Result 339 k/mm3 (150-375); Red Blood Count 4.28 M/mm3 (4.2-5.4); White Blood Count 8.3 K/mm3 (4.5-10.0)
[2025-05-01 06:45] LABS: Alanine Aminotransferase 26 U/L (6-35); Albumin Level 3.5 g/dL (3.5-5.1); Alkaline Phosphatase 89 U/L (38-126); Anion Gap 5 mmol/L (4-12); Aspartate Amino Transferase 22 U/L (14-36); Bilirubin,Total 0.3 mg/dL (0.2-1.3); Blood Urea Nitrogen 6 mg/dL (7-17); Calcium 8.6 mg/dL (8.4-10.2); Carbon Dioxide 25 mmol/L (22-30); Chloride 105 mmol/L (98-107); Estimated CRCL calculation 140 ml/min; Estimated Glomerular Filt Rate > 60; Glucose 306 mg/dL (65-110); Magnesium 1.7 mg/dL (1.6-2.3); Potassium 4.2 mmol/L (3.4-5.0); Sodium 135 mmol/L (137-145); Total Protein 6.5 g/dL (6.3-8.2)
[2025-05-01] MEDS: INSULIN ASPART (*BKC) 100 UNITS/ML SUB-Q ×3 (07:47→12:09)
[2025-05-01] MEDS: INSULIN GLARGINE (*BKC) 100 UNITS/ML 25 UNITS SUB-Q (07:50)
[2025-05-01] MEDS: PANTOPRAZOLE SODIUM IV 40 MG VIAL IV PUSH (07:50)
[2025-05-01] MEDS: INSULIN GLARGINE (*BKC) 100 UNITS/ML SUB-Q (09:00)
--- NOTE | 2025-05-01 11:22 | P.DS_ITS ---
DS: Admitting Diagnosis Discharge Date 05/01/25 Admitting Diagnosis Diabetic ketoacidosis DS: Discharge Diagnosis Discharge Diagnosis (1) DKA (diabetic ketoacidosis): Code(s): E11.10 - Type 2 diabetes mellitus with ketoacidosis without coma Status: Acute DS: Summary Hospital Course Reason for hospitalization: Abdominal pain Diabetic ketoacidosis Hospital Course: 30-year-old female with type 1 diabetes presents the hospital with tachycardia and elevated blood sugars.Of note patient was in the hospital from 04/18/2025- 04/20/2025 due to DKA, at the time she was using her insulin pump but did not have a glucose reader. Admitted to ICU with diabetic ketoacidosis, was started on insulin drip. Anion gap has closed. Has been transition to subcutaneous insulin. Her blood glucose is still not very well controlled on subcutaneous insulin, would like to keep her 1 more day to to improve her blood glucose. Patient is adamant about being discharged so she could garbage pick up man her insulin supplies for her pump. Patient is being discharged and she will garbage pick up man her insulin supplies from pharmacy which was prescribed during last discharge.. Status at Discharge Functional status at discharge: independent ambulation Time Spent with Patient Time attestation: Total time spent providing and/or coordinating discharge services: 32 minutes Exam Narrative: General: NAD Lungs/Chest: Bilateral clear to auscultation Cardiac: RRR. Normal S1 S2. No murmurs Abdomen: Normal bowel sounds.. Soft. Extremities: No edema. Warm Neurologic: Awake alert oriented x3 Skin: No Rash DS: Data Data Completed and Pending Labs on day of discharge: Labs from last 24 hours 05/01/25 05/01/25 04/30/25 07:32 05:53 20:15 WBC 8.3 RBC 4.28 Hgb 12.2 Hct 37.6 MCV 87.9 MCH 28.5 MCHC 32.4 RDW 13.1 Plt Count 339 MPV 9.8 Sodium 135 L Potassium 4.2 Chloride 105 Carbon Dioxide 25 Anion Gap 5 BUN 6 L Creatinine 0.53 L Estim Creat Clear Calc 140 Estimated GFR > 60 Glucose 306 H POC Capillary Glucose 304 H 202 H Calcium 8.6 Phosphorus 3.0 Magnesium 1.7 Total Bilirubin 0.3 AST 22 ALT 26 Alkaline Phosphatase 89 Total Protein 6.5 Albumin 3.5 04/30/25 04/30/25 16:33 11:22 WBC RBC Hgb Hct MCV MCH MCHC RDW Plt Count MPV Sodium Potassium Chloride Carbon Dioxide Anion Gap BUN Creatinine Estim Creat Clear Calc Estimated GFR Glucose POC Capillary Glucose 286 H 261 H Calcium Phosphorus Magnesium Total Bilirubin AST ALT Alkaline Phosphatase Total Protein Albumin Discharge Plan Discharge Attending physician on discharge: Josee Snell Consulting providers: Keagan Brian Discharging Clinician: Josee Snell Anticipated Discharge Date/Time: 05/01/25 10:57 Patient Disposition: Home Activity: as tolerated Diet: diabetic Patient Instructions: Antibiotic Form, Basic Carbohydrate Counting (DC) Patient Language: Portuguese Stand Alone Forms: General Discharge Information Follow-up/Referrals: Juan R,Lamont Jordan MD [Primary Care Provider] - 2 Weeks Discharge Medications: Continued ondansetron HCl 4 mg tablet 4 mg PO Q8H Patient Comments: for 4 days (DME) blood-glucose meter [OneTouch Verio Flex meter] Mis Qty: 1 0RF Rx Instructions: May substitute to in-stock meter and/or covered by insurance. Use As Directed (DME) OneTouch Verio test strips Strip Qty: 1 0RF Rx Instructions: May substitute to in-stock and/or covered by insurance strips. Use As Directed (DME) pen needle, diabetic 32 gauge x 5/32 Needle Qty: 1 0RF Patient Comments: ran out of insulin supplies Rx Instructions: As Directed (DME) lancets [OneTouch Delica Plus Lancet] 30 gauge misc Qty: 1 0RF Rx Instructions: May substitute to in-stock and/or covered by insurance lancets. Use As Directed (DME) insulin syringe,safety needle 0.5 mL 31 gauge x 5/16 Syringe Qty: 1 0RF Patient Comments: ran out of needle supplies Rx Instructions: As Directed Discontinued amoxicillin-pot clavulanate 875-125 mg tablet 1 tablet PO Q12H Qty: 20 0RF Date of admission: 04/29/25 09:08 Primary Care Provider: Juan RLamont Admitting Provider: Rosa Galindo Attending physician on admission: Rosa Galindo Condition: Improved
[2025-05-01] MEDS: INSULIN ASPART (*BKC) 100 UNITS/ML 9 UNITS SUB-Q (12:10)
--- NOTE | 2025-05-01 12:49 | PCCDE ---
Reached out to pt's endoAdrian NP for DSMT referral. However, I was notified that pt's last OV was 02/28/23 and pt will need to schedule an appt to get referral. Called pt's room and notified of such. Pt sts she likes the Tawanda 3+ placed yesterday and will schedule with Adrian to get rx to continue. Pt sts high alarm went off last night. Pt v/u of tx of hyperglycemia. Encouraged pt to call prn. Sofiya Mason RD, LDN, [facility]
--- NOTE | 2025-05-09 12:23 | PCCDE ---
05/09/25: DM educator attempted Courtesy follow up call at cell number: [phone] Outbound recording stating Your call cannot be completed as dialed.....
--- NOTE | 2025-05-12 09:43 | PCCDE ---
05/12/25 Pt called and left message over the weekend w/call back number: [phone]. I returned her message 09:05 am today. (spoke for over 30 minutes) She is concerned with low readings over night that she reports to treating with banana or bread and PB - with the banana glucose increased and came back down and the Bread and PB, which she said helped in past. took a long time for the sugar to reach target. Her relevant questions and statements indicate she will strongly benefit from OP DSMT. Upon conversation, her current pump (which she currently no longer has supplies for) is out of warranty -> I enc'd her to discuss options of Pumps with CGMs at upcoming Endo appt. -- -- She also complained about the sensor (with [employer] Tawanda provided prior to DC) periodically reading error -> trouble shooting ie: not resting/leaning on it, phone within distance. If happens again directed to [employer] customer service. -- Educated re: rule of 15, including importance of snack post hypoglycemia resolution and directed to page in booklet provided during inpatient status. -- She has appt with a new dr in her endo's office Monday. -- Reminded of OP opportunity which she is open to, and procedure.
== END 2025-05-01 14:58 | disposition home or self-care (01) ==
LOC: ANHED 08:52 → ANHICU 04-30 10:55 → ANH3MEDSUR 05-01 10:57 → ANHICU 05-02 06:51
PROVIDERS: Internal Medicine; Admitting Provider General Practice; Emergency Provider Emergency Medicine; PCP Internal Medicine; Visit Provider Internal Medicine
DX: E10.10 Type 1 diabetes mellitus with ketoacidosis without coma (principal); D72.829 Elevated white blood cell count, unspecified; R74.01 Elevation of levels of liver transaminase levels; R10.9 Unspecified abdominal pain; R12 Heartburn; Z79.4 Long term (current) use of insulin; Z96.41 Presence of insulin pump (external) (internal); Z20.822 Contact with and (suspected) exposure to COVID-19; Z87.891 Personal history of nicotine dependence; Z80.3 Family history of malignant neoplasm of breast; Z82.49 Family history of ischemic heart disease and other diseases of the circulatory system
CPT/HCPCS: 36415; 36600; 74176; 80048; 80053; 81001; 81025; 82010; 82375; 82805; 82948; 83036; 83050; 83605; 83690; 83735; 84100; 85018; 85025; 85027; 85610; 85730; 87637; 96361; 96365; 96366; 96368; 96374; 96375; 96376; 99291; A9270; G0378; G0379; J1815; J2470; J3480; J7030; J7120

== ENCOUNTER 2025-06-25 07:08 | Emergency (ER) | payer OTHER, SELFPAY ==
--- NOTE | ~2025-06-25 | XR_ITS ---
EXAMINATION: XR chest 1V portable 06/25/2025 09:02 INDICATION: Elevated blood sugars. History of diabetes. PROCEDURE: AP portable chest COMPARISON: No prior studies for comparison. FINDINGS: The lungs are clear. The cardiomediastinal silhouette is within normal limits. There are no pleural effusions. There is no pneumothorax suspected. IMPRESSION: 1: NO ACUTE CARDIOPULMONARY DISEASE. Reviewed, dictated and finalized at location O. [facility] LABORATORY TECHNICIAN
[2025-06-25 07:11] VITALS: BP 144/105; PULSE 107; RESP 20; TEMP 36.8; O2SAT 100
--- NOTE | 2025-06-25 07:43 | ECG_ITS ---
Test Date: 2025-06-25 08:02:15 Measurements Intervals [place] Rate: 90 P: 44 MI: 153 QRS: 2 QRSD: 87 T: -1 QT: 319 QTc: 390 Interpretive Statements SINUS RHYTHM NONSPECIFIC REPOLARIZATION ABNORMALITIES No previous ECG available for comparison Electronically Signed On 06-25-2025 13:33:15 MAINTENANCE PIPEFITTER by Ramos Arroyo M.D.
[2025-06-25] MEDS: LACTATED RINGERS 500 ML 999 ML IV CONT (07:56)
[2025-06-25] MEDS: LACTATED RINGERS 1,000 ML 999 ML IV CONT ×2 (07:56)
[2025-06-25 08:02] LABS: Fractional Inspired Oxygen 21 %; HCO3 VBG 26.3 mEq/l (24.0-30.0); PCO2 VBG 51.2 mmHg (42.0-48.0); PO2 VBG 30.4 mmHg (35.0-45.0); pH VBG 7.329 (7.300-7.400)
[2025-06-25 08:03] LABS: BEDSIDEPREGUCG Negative (Negative)
[2025-06-25 08:09] VITALS: TEMP 36.9
--- OUTSIDE RECORDS SUMMARY | 2025-06-25 08:13 | XMS_ITS | Clinical Summary ---
Author Organization [facility] Address [address] [place] [address] Phone Care Team Providers Care Loss Claim Clerk Name Role Phone Lamont Pete MD Primary [...] Comments Blood Pressure 120/80 06/05/2020 8:31 AM GRE TUTOR Pulse 86 06/05/2020 8:31 AM GRE TUTOR Temperature 36.6 C (97.9 F) 06/05/2020 8:31 AM GRE TUTOR Respiratory Rate 16 06/05/2020 8:31 AM GRE TUTOR Oxygen Saturation 98% 06/05/2020 8:31 AM GRE TUTOR Inhaled Oxygen Concentration - - Weight 78 kg (172 lb) 06/05/2020 8:31 AM GRE TUTOR Height 162.6 cm (5' 4) 06/05/2020 8:31 AM GRE TUTOR Body Mass Index 29.52 06/05/2020 8:31 AM GRE TUTOR Plan of Treatment Health Maintenance Due Date [...] 2025 Influenza Immunization (#1) 2025 SARS-COV-2 Immunization (2024- season) 2025 Respiratory Syncytial Virus (RSV) Immunization (Adult) (1 - 1-dose 75+ series) 2070 Varicella Immunization Completed 02/09/2007, 1997 Human Papillomavirus (HPV) Immunization Completed 01/10/2008, 05/02/2007 Meningococcal Immunization (ACWY) Aged Out No longer eligible based on patient's age to complete this topic Rotavirus Immunization Aged Out No lo nger eligible based on patient's age to complete this topic Procedures Procedure Name Priority Date/Time Associated Diagnosis Comments POCT GLYCOSYLATED HEMOGLOBIN Routine 06/05/2020 8:43 AM GRE TUTOR Uncontrolled type 1 diabetes mellitus with hyperglycemia (HCC) UR MICROALBUMIN/CREATIN INE RATIO RANDOM Routine 02/01/2019 Uncontrolled type 1 diabetes mellitus with hyperglycemia (HCC) DILATED EYE EXAM Routine 02/17/2018 from Last 3 Months or Most Recently Relevant to Health Maintenance Results * (ABNORMAL) POCT GLYCOSYLATED HEMOGLOBIN (06/05/2020 8:43 AM GRE TUTOR) HGB-A1C 8.9(A) 4 - 6 06/05/2020 8:43 AM GRE TUTOR us Jason Galindo MD POINT OF CARE [...] Most Recently Relevant to Health Maintenance Insurance [facility] Care Teams Loss Claim Clerk Relationship Specialty Start Date End Date Lamont Pete MD [address] [place] [address] [place] [address] PCP - General Internal Medicine 03/20/17
--- OUTSIDE RECORDS SUMMARY | 2025-06-25 08:13 | XMS_ITS | Clinical Summary ---
Author Organization [facility] Address [facility] [place] [address] Care Team Providers Care Cupola Operator Insulation Name Role Phone Lamont Pete MD Primary Care Provider [phone] Allergies No known active allergies Medications HYDROcodone-acet [...] on file Legal Sex Female 2:52 AM MANPOWER DEVELOPMENT SPECIALIST MANAGER Gender Identity Not on file Sexual Orientation Not on file Last Filed Vital Signs Vital Sign Reading Time Taken Comments Blood Pressure 137/92 10/08/2020 2:59 AM MANPOWER DEVELOPMENT SPECIALIST MANAGER Pulse 82 10/08/2020 2:59 AM MANPOWER DEVELOPMENT SPECIALIST MANAGER Temperature 36.7 C (98.1 F) 10/08/2020 2:59 AM MANPOWER DEVELOPMENT SPECIALIST MANAGER Respiratory Rate 16 10/08/2020 7:25 AM MANPOWER DEVELOPMENT SPECIALIST MANAGER Oxygen Saturation 100% 10/08/2020 7:25 AM MANPOWER DEVELOPMENT SPECIALIST MANAGER Inhaled Oxygen Concentration - - Weight 76.7 kg (169 lb) 10/08/2020 2:59 AM MANPOWER DEVELOPMENT SPECIALIST MANAGER Height 162.6 cm (5' 4) 10/08/2020 2:59 AM MANPOWER DEVELOPMENT SPECIALIST MANAGER Body Mass Index 29.01 10/08/2020 2:59 AM MANPOWER DEVELOPMENT SPECIALIST MANAGER Plan of Treatment Health Maintenance Due Date Last Done Comments Cervical Cancer Screening Pap Smear (Age 30 to 64) Every 3 Years 1995 Annual Physical 1998 Hepatitis C 2013 Cervical Cancer Screening Pap with HPV Testing (Age 30 to 64) Every 5 Years 2025 Cervical Cancer Screening with HPV 2025 COVID-19 Vaccine ( season) 2025 Influenza Adult (#1) 2025 07/03/2020, 06/22/2011, 05/02/2007, Additional history exists DTaP, Tdap and Td Vaccines (8 - Td or Tdap) 01/01/2029 01/01/2019, 06/02/2006, 04/21/1999, Additional history exists Hepatitis B Vaccines Completed 1995, 1995, 1995 Meningococcal Vaccine Aged Out 02/09/2007 No etienne latha eligible based on patient's age to complete this topic HPV Vaccines Completed 01/10/2008, 09/2006, 02/09/2007 Hepatitis A Vaccines Completed 01/19/2009, 01/10/20 08 Meningococcal B Vaccine Aged Out No l [...] complete this topic Insurance MEDICAID Care Teams Cupola Operator Insulation Relationship Specialty Start Date End Date Lamont Pete MD [address] [place] [address] [place] [id number] PCP - General INTERNAL MEDICINE 10/08/20
--- OUTSIDE RECORDS SUMMARY | 2025-06-25 08:14 | XMS_ITS | Encounter Summary ---
Author Organization [facility] Address [address] [place] [address] Care Team Providers Care Aws Solution Architect Name Role Phone Lamont Pete MD Primary Care Provider Cande Farooq MD Unavailable [phone] Encounter Details Date Type Department Care Team (Late st Contact Info) Description 06/23/2025 Orders Only [facility] Primary Care at [address] [place] [address] Lamont Pete MD [address] [place] [address] [address] [place] [address] Social History Tobacco Use Types Packs/Day Years Used Date Smoking Tobacco: Never Passive Smoke Exposure: Never Smokeless Tobacco: Never Alcohol Use Standard Drinks/Week Comments Yes 0 (1 standard drink = 0.6 oz pur e alcohol) AUDIT-C Answer Date Recorded Q1: How often do you have a drink containing alcohol? 4 or more times a week 07/03/2023 Q2: How many drinks containi ng alcohol do you have on a typical day when you are drinking? 1 or 2 Q3: How often do you have si x or more drinks on one occasion? Never 07/03/2023 PHQ-2 Answer Date Recorded PHQ-2 Total Score (If total score is 3 or more points, staff should administer the PHQ-9) 0 06/13/2025 Personal Safety Answer Date Recorded Have you ever been in or are you currently in a harmful physical or emotional relationship or is someone making you feel afraid or unsafe? Denies 10/08/2023 Comments No Sex and Gender Information Value Date Recorded Sex Assigned at Not on file Legal Sex Female 3:59 AM GENERAL LABOR Gender Identity Not on file Sexual Orientation Not on file documented as of this encounter Ordered Prescriptions Prescription Sig Dispense Quantity Refills Last Filled Start Date End Date ketorolac (TORADOL) 10 mg tablet Take 1 tablet (10 mg total) by mouth every 6 (six) hours as needed for pain For abdominal pain 20 tablet 06/23/2025 documented in this encounter Plan of Treatment Not on file documented as of this encounter Visit Diagnoses Not on filedocumented in this encounter Care Teams Aws Solution Architect Relationship Specialty Start Date End Date Lamont Pete MD PCP - General 10/28/16 [place] [address] [place] [address] Consulting Physician Obstetrics and Gynecology 08/24/21 documented as of this encounter
--- OUTSIDE RECORDS SUMMARY | 2025-06-25 08:14 | XMS_ITS | Clinical Summary ---
Author Organization [facility] Address [address] [place] [address] Care Team Providers Care Shaker Repairer Name Role Phone Lamont Pete MD Primary Care Provider Cande Farooq MD Unavailable [phone] Allergies No known active allergies Medications etonogestrel (NEXPLANON) 68 mg implantIndicatio ns: Contraception Active Contour Next Test Strips stripIndications :type 1 diabetes mellitus TEST BLOOD SUGAR 4-6 TIMES DAILY. USE WITH INSULIN PUMP COMPATIBLE GLUCOMETER. THE CONTOUR LINK BLOOD GLUCOSE METER IS THE ONLY METER THAT IS FDA APPROVED FOR USE WITH THE AdQuantic 670G SYSTEM. 200 strip 5 022 Active blood-glucose transmitter (Dexcom G6 Transmitter) deviceIndication s:type 2 diabetes mellitus 1 Device continuously USE DEVICE CONTINUOUSLY; change every 90 days. E10.65 1 each 3 023 Active ziprasidone (GEODON) 40 mg capsule Take by mouth daily Patient will start once the 20mg is gone 023 Active insulin lispro (HumaLOG) 100 unit/mL vial for injection INJECT 133 UNITS UNDER THE SKIN DAILY, MAX DOSE OF INSULIN PUMP THERAPY 40 mL 4 024 Active insulin glargine 100 unit/mL (3 mL) pen for injection Inject 20 Units under the skin daily 18 mL 3 025 Active insulin lispro (HumaLOG, ADMELOG) 100 unit/mL pen for injection Use insulin to carb ratio of 10. Maximum total daily dose 60 units 54 mL 3 Active FreeStyle Tawanda 3 Plus Sensor device 1 Device continuously Change sensor every 15 days 2 each 6 025 2025 Active Baqsimi 3 mg/actuation spray,non-aeroso lIndications:pat ient with diabetes mellitus at risk of hypoglycemia Administer 1 spray into one nostril as needed (use for severe hypoglycemia requiring the assistance of another.) E10.65 2 each 11 Active atorvastatin (LIPITOR) 20 mg tablet Take 1 tablet (20 mg total) by mouth daily 90 tablet 3 2025 Active pen needle, diabetic 32 gauge x 5/32 needle Use to inject insulin 4 times/day. [address] (PROTONIX) 40 mg EC tablet Take 1 tablet (40 mg total) by mouth daily For abdominal pain 30 tablet 11 2025 Active acetone, urine, test strip Test if BG >250 and feeling ill 100 strip 11 Active ciprofloxacin (CIPRO) 500 mg tablet Take 1 tablet (500 mg total) by mouth 2 (two) times a day for 7 days 14 tablet 2024 Active metroNIDAZOLE (FLAGYL) 500 mg tablet TAKE 1 TABLET BY MOUTH THREE TIMES A DAY FOR 7 DAYS 21 tablet Active ketorolac (TORADOL) 10 mg tablet Take 1 tablet (10 mg total) by mouth every 6 (six) hours as needed for pain For abdominal pain 20 tablet Active pen needle, diabetic 32 gauge x 5/32 needle Use to inject insulin up to 4times/day. 150 each 2024 Discontinued(R eorder) ciprofloxacin (CIPRO) 500 mg tablet Take 1 tablet (500 mg total) by mouth 2 (two) times a day for 7 days 14 tablet 2024 metroNIDAZOLE (FLAGYL) 500 mg tablet Take 1 tablet (500 mg total) by mouth 3 (three) times a day for 7 days 21 tablet 2024 Discontinued Hospital, Clinic, or Other Facility Administered Medication [...] Borderline personality disorder 11/22/2021 Assessment & Plan (06/13/2025 1:48 PM HISTORICAL INTERPRETER): Assessment & Plan (05/21/2025 9:41 AM CDT): Assessment & Plan (11/22/2021 10:05 AM CDT): Going for cognitive behavioral therapy Will start buspar 5 mg twice a day for the anxiety If no improvement can consider increasing to 3x/day F/u in 1 month Mixed diabetic hyperlipidemi a associated with type 1 diabetes mellitus 12/14/2020 Assessment & Plan (06/13/2025 1:48 PM HISTORICAL INTERPRETER): Assessment & Plan (05/21/2025 9:41 AM CDT): Assessment & Plan (02/28/2023 4:34 PM CDT): [...] prescribed. Assessment & Plan (08/29/2022 4:04 PM HISTORICAL INTERPRETER): This is a chronic condition which is [...] therapy. Assessment & Plan (08/03/2021 11:10 AM HISTORICAL INTERPRETER): This is a chronic condition which is not at goal. Goal is less than 70. Personally reviewed lipid panel/LDL -92, currently not on statin, not at goal of less than 70 Encouraged to eat healthy, include fresh fruits and vegetables daily and avoid eating fried foods more than once per week. Please take medications as prescribed. Assessment & Plan (06/22/2021 11:42 AM HISTORICAL INTERPRETER): This is a chronic condition which is [...] download Assessment & Plan (08/29/2022 4:06 PM HISTORICAL INTERPRETER): This is a chronic condition which is improving but not at goal. Download reviewed. Type of insulin pump- Medtronics 670 G with Humalog 05-12-22 to 05-25-2022 Basal 0000-1.30, 4859-5871-1.85, 2100- 1.30 IC -5 ISF -25 Active [...] with Humalog 05-12-22 to 05-25-2022 Basal 0000-1.30, 6517-0880-1.85, 2100- 1.30 IC -5 ISF -25 Active [...] [employer] 670 G with Humalog Basal 0000-1.30, 0233-1058-1.85, 2100- 1.30 IC -5 ISF -25 Active [...] Medtronics 670 G with Humalog Basal 0000-1.30, 9516-2990-1.85, 2100- 1.30 IC -5 ISF -25 Active [...] pump. Assessment & Plan (08/03/2021 11:30 AM HISTORICAL INTERPRETER): This is a chronic condition which is worsening, not at goal with hypoglycemia. Download reviewed. Type of insulin pump- Medtronics 670 G with Humalog Basal 0000-1.10, 0230-1.30, 8258-3336-1.85, 1900- 1.40 IC -5 ISF -25 Active [...] again. Assessment & Plan (06/22/2021 11:46 AM HISTORICAL INTERPRETER): This is a chronic condition which is worsening, not at goal with hypoglycemia. Download reviewed. Type of insulin pump- Medtronics 670 G with Humalog Basal 0000-1.10, 0230-1.30, 7285-1274-1.85, 1900- 1.40 IC -5 ISF -25 Active [...] the 0500 hypoglycemic events. Basal 0000-1.10, 0230-1.30, 2702-8427-1.85, 1900- 1.40 IC -5 ISF -25 Active [...] Will order Dexcom Sensor. Melony Lainez from [employer]s contacted for help in getting pump supplies covered. Assessment & Plan (12/14/2020 9:10 PM CDT): This is a chronic condition which is improving, but not at goal. Download reviewed. Type of insulin pump- Medtronics 670 G Pump settings adjusted: Basal 0000-1.20, 0230-1.30, 0785-6644-1.85, 1900- IC -5 ISF -25 Active insulin [...] 07/04/2019 Assessment & Plan (07/04/2019 8:39 AM HISTORICAL INTERPRETER): CXR ordered for further evaluation of indeterminate tuberculosis screening test. Work forms filled out in accordance of test findings and ruling out concerns of any communicable diseases. 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 prescription monitoring program. Pt was strongly encouraged to keep follow-up visit here in a month certainly returning every month in order to obtain printed scripts Assessment & Plan (07/06/2018 3:26 PM HISTORICAL INTERPRETER): Cautiously increasing patient's adderall XR to 15mg [...] mellitus with hyperglycemia 05/01 Assessment & Plan (05/21/2025 9:41 AM CDT): Orders: Hemoglobin A1c; Future Albumin Creatinine Ratio, Urine; Future Assessment & Plan (02/28/2023 4:33 PM CDT): [...] 670 G with humalog insulin. Basal 0000-1.3, 9414-6284-1.85, 2100- 1.30, IC -5, ISF -25, Active [...] therapy Assessment & Plan (08/29/2022 4:04 PM HISTORICAL INTERPRETER): This is a chronic condition which is [...] scheduled to meet with Bela Jauregui from [facility] but missed the appt. She is requesting [...] ID. Assessment & Plan (08/03/2021 11:28 AM HISTORICAL INTERPRETER): This is a chronic condition which is [...] ID. Assessment & Plan (06/22/2021 11:42 AM HISTORICAL INTERPRETER): This is a chronic condition which is [...] AM CDT): Pt understands indications to call psychologist clinical with ongoing elevations or certainly alert our office given elevations with acute infections. Cnt. To adjust bolus and basal insulin as necessary. Assessment & Plan (07/06/2018 3:19 PM HISTORICAL INTERPRETER): Continue with humalog sliding scale adjustments as advised by psychologist clinical. Encouraged to monitor glucose levels while acute ill. F/u with specialist as advised. Assessment & Plan (07/28/2017 8:31 AM HISTORICAL INTERPRETER): I advised patient to keep a close [...] infection, we will send her to her psychologist clinical to manage further Assessment & Plan (07/25/2017 2:45 PM HISTORICAL INTERPRETER): Given diabetes wll ask to get this re looked at frid. Watch sugar controll. And for signs of gettig worse. Assessment & Plan (07/06/2017 11:25 AM HISTORICAL INTERPRETER): Patient self reports that her glucose levels [...] Date Resolved Date Functional diarrhea 05/24/2023 05/24/20 Right foot injury, initial encounter 07/04/2019 12/14/2020 Assessment & Plan (07/04/2019 8:39 AM HISTORICAL INTERPRETER): Recommending x-ray D/T acute trauma causing onset [...] awaiting for sensitivity report indicating need to change management consultant. Wound care management was once again educated today in clinic, RTC here in 3 days to complete another dressing change. Wound care consultation was placed today for [facility] in hopes of getting current in the next week for remaining dressing changes. Assessment & Plan (04/17/2019 10:50 AM CDT): D/T multiple pocketing of furuncle, I&D procedure would not be successful in our clinic today. I did encourage Pt to present to ED for management. I did call over and speak to BETTY Stringer, at [facility] ED who was made [...] 07/04/2019 Assessment & Plan (08/10/2018 2:29 PM HISTORICAL INTERPRETER): Concerned of a possible tendinopathy/ tenosynovitis surrounding right them considering worsening pain and swelling with [id number] NSAIDs, rest, ice and heat, and bracing. [...] review Assessment & Plan (07/19/2018 9:24 AM HISTORICAL INTERPRETER): Acute tenosynovitis verses possible sprain of MCP [...] 07/19/2018 Assessment & Plan (07/06/2018 3:17 PM HISTORICAL INTERPRETER): Rapid strep and flu tests negative Acute [...] provided. Assessment & Plan (07/06/2018 3:18 PM HISTORICAL INTERPRETER): Recommended augmentin to take as prescribed with OTC probiotics. Pt was advised to use OTC antihistamines, increase fluids and humidification, and mucinex OTC for alleviate of congestion and cough. Indications to f/u in office given to patient BMI 30.0-30.9,adult 07/28/2017 07/19/20 18 Assessment & Plan (07/28/2017 8:30 AM HISTORICAL INTERPRETER): Recommended patient to continue to increase heart healthy diet with adequate fruits, vegetables, and plenty of water along with mild-moderate daily exercise as tolerated. Paronychia of great toe, left 07/25/2017 08/03/2017 Assessment & Plan (07/28/2017 8:29 AM HISTORICAL INTERPRETER): Continue on current dose of Augmentin adding on Cleocin 300 mg t.i.d. for 10 day course were going to see her here in 5 days to touch base and make sure that we are moving in the right direction regarding healing of wound/paronychia infection. I also advised her to take [id number] probiotics to assist with the side effects related to Cleocin certainly the beta-lactam with the Augmentin as well. I advised her to continue to soak in Epsom salts twice daily and keep it nice clean and dry with Dial soap and will follow up here in 5 days or sooner as needed Assessment & Plan (07/25/2017 2:42 PM HISTORICAL INTERPRETER): Wash with dial type soap. Massage in antibiotic cream or ointment. Do twice a day. Oral antibiotics. Start probiotic for stomack. augmentin drug Rx. Body mass index (bmi) 33.0-33.9, adult 07/06/2017 08/10/2018 Acute costochondritis 07/06/20172017 Assessment & Plan (07/06/2017 11:21 AM HISTORICAL INTERPRETER): Clinical presentation suggestive of a costochondritis without known etiology/trauma causing symptoms. I advised patient since she did not respond well to the NSAID [id number] we will try little Medrol Dosepak to [...] 07/06/201707/06 Assessment & Plan (07/06/2017 11:26 AM HISTORICAL INTERPRETER): Painful epidermal cyst on left tragus which [...] hyperglycemia given recent infection, and F/U with psychologist clinical as scheduled. Assessment & Plan (04/17/2019 10:50 AM CDT): Stable, no notable elevations given worsening in infected right axilla abscess. Cnt. With current DM management, consistent carb diet, F/U with psychologist clinical as scheduled. Further recommendations pending e.d. Evaluation Assessment & Plan (04/15/2019 3:37 PM CDT): Cnt. With current diabetic regimen as advised by psychologist clinical. Cnt. To monitor for glucose levels with any notable elevation at or above 150 or signs of hyperglycemia to report office given acute infection. Assessment & Plan (01/07/2019 3:36 PM CDT): Glucose level steadily improving with treatment of infection, however I did encourage her to Cnt. To monitor while treating the infection as hyperglycemia does need to be corrected in call [facility]. Cnt. With current insulin adjustments as indicated by psychologist clinical Assessment & Plan (01/01/2019 11:02 AM CDT): Hyperglycemia secondary to suspected infection. Adjust insulin dosage per sliding scale as advised by psychologist clinical. I did encourage her to F/U with psychologist clinical with any persistent hyperglycemia (after 2 days of abx) at or above 350, or suspect progressive infection Assessment & Plan (12/25/2018 1:15 PM CDT): Cnt. To monitor glucose levels while on tapering corticosteroids. Certainly correcting insulin per scale provided by psychologist clinical. Pt was encouraged to call office with elevated glucose levels at or above 300. RTC here on Monday Encounters Date Type Department Care Team Description 06/24/2025 Orders Only [facility] Primary Care at [address] [place] [phone] Lamont Pete MD Lower abdominal pain (Primary Dx) 06/23/2025 Orders Only [facility] Primary Care at [address] [place] [address] Lamont Pete MD 06/20/2025 Orders Only [facility] Primary Care at [address] [place] [address] Lamont Pete MD 06/13/2025 1:30 PM HISTORICAL INTERPRETER Office Visit [facility] Primary Care at [address] [phone] Lamont Pete MD Left upper quadrant abdominal pain (Primary Dx); BMI 32.0-32.9,adult; Borderline personality disorder (HCC); Mixed diabetic hyperlipidemia associated with type 1 diabetes mellitus 06/04/2025 Orders Only [facility] Primary Care at [address] [phone] Lamont Pete MD 05/21/2025 Orders Only [facility] Primary Care at [address] [phone] Lamont Pete MD 05/20/2025 10:30 AM CDT Office Visit [facility] Primary Care at [address] [phone] Lamont Pete MD Annual physical exam (Primary Dx); BMI 32.0-32.9,adult; Type 1 diabetes mellitus with hyperglycemia (HCC); 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; Mixed diabetic hyperlipidemia associated with type 1 diabetes mellitus; Mixed hyperlipidemia; Borderline personality disorder (HCC) 05/20/2025 Orders Only [facility] Primary Care at [address] [phone] Lamont Pete MD 05/19/2025 Results Follow-Up [facility] Diabetes Endocrine Care at [address] [phone] Tamiko Lozoya, Thyroid Function [place], Albumin Creatinine Ratio, Urine, Comprehensive metabolic panel, Additional followed-up results: 3 05/16/2025 11:40 AM CDT Lab [facility] - Outpatient Center at [address] [address] Type 1 diabetes mellitus with hyperglycemia (HCC) 05/16/2025 10:30 AM CDT Office Visit [facility] Diabetes Endocrine Care at [address] [phone] Tamiko Lozoya, Type 1 diabetes mellitus with hyperglycemia (HCC) (Primary Dx) 04/30/2025 Telephone [facility] Primary Care at [address] [place] [address] Lamont Pete MD Appointment 04/29/2025 Orders Only [facility] [address] [place] [address] Lamont Pete MD 04/18/2025 Orders Only [facility] [address] [place] [address] Lamont Pete MD from Last 3 Months Immunizations Immunization Administration Dates Next Due DTaP 04/21/1999, 6,1995,05/08,1995 HPV, Quadrivalent 02/09/2007 HPV, Unspecified 01/10/2008,05/02/2007 Hep A, Adult 01/19/2009 Hep A, Pediatric 01/10/2008 Hep B Vaccine 1995,1995 Hep B, Adolescent or Pediatric 1995 HiB 04/08/1996,1995,1995 Hib (PRP-OMP) 1995 IPV 04/21/1999, 6,1995,03/07 Influenza, Quadrivalent, Spl it, Preservative Free, Intramuscular 06/16/2022,06/14/2021,07/03/2020 Influenza, Trivalent, IM (MDV) 06/22/2011,2006,06/02/2006 Influenza, Unspecified 06/13/2025(Deferr ed: Patient Refused),05/20/2025(Deferred: Patient Refused),10/16/2023(Deferred: Patient Refused),10/16/2023(Deferred: Patient Refused),06/04/2021(Deferred: Patient Refused),05/06/2020(Deferred: Patient [...] on file Legal Sex Female 3:59 AM HISTORICAL INTERPRETER Gender Identity Not on file Sexual Orientation Not on file Obstetrics History Para Term AB IAB SAB Ectopic Multiple Livin g Live Births 0 0 0 0 0 0 0 0 0 0 0 Last Filed Vital Signs Vital Sign Reading Time Taken Comments Blood Pressure 118/80 06/13/2025 12:59 PM HISTORICAL INTERPRETER Pulse 100 06/13/2025 12:59 PM HISTORICAL INTERPRETER Temperature 36.6 C (97.8 F) 06/13/2025 12:59 PM HISTORICAL INTERPRETER Respiratory Rate 16 06/13/2025 12:59 PM HISTORICAL INTERPRETER Oxygen Saturation 98% 06/13/2025 12:59 PM HISTORICAL INTERPRETER Inhaled Oxygen Concentration - - Weight 85.7 kg (189 lb) 06/13/2025 12:59 PM HISTORICAL INTERPRETER Height 162.6 cm (5' 4) 06/13/2025 12:59 PM HISTORICAL INTERPRETER Body Mass Index 32.44 06/13/2025 12:59 PM HISTORICAL INTERPRETER Plan of Treatment Health Maintenance Due Date Last Done Comments Pneumococcal vaccine <65 (1 of 2 - PCV) 2014 Cervical Cancer Screening 10/07/2023 10/06/2022, Influenza Vaccine (#1) 2025 , 06/14/2021, 07/03/2020, Additional history exists Hemoglobin A1C 11/14/2025 05/16/2025, 08/0 07/2022, 11/11/2022, Additional history exists Albumin Creatinine Ratio, Urine 05/16/2026 05/16/2025, 09/02/2022, 08/03/2021, Additional history exists Lipid Panel 05/16/2026 05/16/2025, 02/0 09/2022, 08/03/2021, Additional history exists TSH Level 05/16/2026 05/16/2025, 02/0 09/2022, 08/03/2021, Additional history exists eGFR 05/16/2026 05/16/2025, 02/0 09/2022, 08/03/2021, Additional history exists Regular Well Visit/Exam 18-64 05/20/2026, 10/06/2022, 06/16/2022, Additional history exists Depression Screening 06/13/2026 06/13/2025, 05/20/2025, 10/16/2023, Additional history exists Foot Exam 06/13/2026 06/13/2025, 1007/2024, 05/16/2025, Additional history exists Dilated Eye Exam 05/16/2027 05/16/2025, 12/2019, 06/05/2020, Additional history exists DTaP/Tdap/Td Vaccine (8 - Td or Tdap) 01/01/2029 01/01/2019, 06/02/2006, 04/21/1999, Additional history exists Hepatitis B Screening Completed 1995 , 1995, 1995 Varicella Vaccines Completed 02/09/2007, 04/20/1998 HPV Vaccines Completed 01/10/2008, 09/2006, 02/09/2007 Hepatitis C Screening Completed 10/06/2022 Procedures Procedure Name Priority Date/Time Associated Diagnosis Comments EGFR Routine 05/16/2025 11:33 AM CDT Type 1 diabetes mellitus with hyperglycemia (HCC) LIPID PANEL Routine 05/16/2025 11:33 AM CDT Type 1 diabetes mellitus with hyperglycemia (HCC) COMPREHENSIVE METABOLIC PANEL Routine 05/16/2025 11:33 AM CDT Type 1 diabetes mellitus with hyperglycemia (HCC) ALBUMIN CREATININE RATIO, URINE Routine 05/16/2025 11:33 AM CDT Type 1 diabetes mellitus with hyperglycemia (HCC) THYROID FUNCTION CASCADE Routine 05/16/2025 11:33 AM CDT Type 1 diabetes mellitus with hyperglycemia (HCC) POCT HEMOGLOBIN A1C Routine 05/16/2025 1 1:00 AM CDT Type 1 diabetes mellitus with hyperglycemia (HCC) RETINAVUE SCANNER - OU - BOTH EYES Routine 05/16/2025 Type 1 diabetes mellitus with hyperglycemia (HCC) SCAN - LABS 04/29/2025 SCAN - RADIOLOGY/IMAGING 04/29/2025 SCAN - RADIOLOGY/IMAGING 04/18/2025 PAP WITH REFLEX TO HIGH RISK HPV Routine 10/06/2022 2:45 PM HISTORICAL INTERPRETER Encounter for well woman exam with routine gynecological exam HEPATITIS PANEL, ACUTE Routine 10/06/2022 2:04 PM HISTORICAL INTERPRETER STI (sexually transmitted infection) [facility] DIABETES FOOT EXAM Routine 12/03/2019 from Last 3 Months or Most Recently Relevant to Health Maintenance Results * eGFR (05/16/2025 11:33 AM CDT) eGFR >90 >=60 mL/min/1. 73 m2 Comment: Interpretive Data Reference Interval Normal >/= [...] Current interpretive data was last reviewed 2021. Testing performed by: [address] [address] Blood 05/16/2025 11:3 3 AM CDT 05/16/2025 5:05 PM CDT us Tamiko Lozoya DO LAB BLOOD ORDERABLES Final Result ANNMARIE [id number] [facility] Department [place] [address] * Thyroid Function [place] (05/16/2025 11:33 AM CDT) TSH 1.44 0.30 - 4.20 mcIUnit/mL Comment:Testing performed by : [address] [address] Blood 05/16/2025 11:3 3 AM CDT 05/16/2025 4:53 PM CDT Lucilabhavik Charles Lozoya DO LAB BLOOD ORDERABLES Final Result Performing Organization Address [facility] de Phone Number ANNMARIE [id number] [facility] Department [place] [address] * Albumin Creatinine Ratio, Urine (05/16/2025 11:33 AM CDT) Albumin Ur <12.0 mg/L Comment: Interpretive Data No reference range established. Current interpretive data was last revised 2018. Testing performed by: [facility], [address] [place] [address]., [id number] Creatinine Ur 71.9 mg/dL ANNMARIE Comment: Interpretive Data No reference range established. Current interpretive data was last revised 2018. Testing performed by: [address] [address] Albumin Creatinine Ratio, Ur <17 1 - 29 mg/g ANNMARIE Comment:Testing performed by : [address] [id number] Urine 05/16/2025 11:3 3 AM CDT 05/16/2025 4:53 PM CDT Tamiko Lozoya DO LAB URINE ORDERABLES Final Result Performing Organization Address [facility] de Phone Number ANNMARIE [id number] [facility] Department [facility] [employer] [address] * (ABNORMAL) Lipid panel (05/16/2025 11:33 AM CDT) Cholesterol 233(H) 30 - 199 mg/dL Comment: Interpretive Data Ages < or = [...] Interpretive Data was last revised on 2018. Testing performed by: [facility], [address] [place] [address]., [id number] Triglycerides 88 <=149 mg/dL ANNMARIE Comment: Interpretive Data Ages < or = [...] Interpretive Data was last revised on 2018. Testing performed by: [facility], [address] [place] [address]., [id number] HDL 56 >=40 mg/dL ANNMARIE Comment: Interpretive Data Ages < or = [...] Interpretive Data was last revised on 2018. Testing performed by: [facility], [address] [place] [address]., [id number] LDL, calculated 162(H) <=129 mg/dL ANNMARIE Comment: Interpretive Data Ages < or = 19 years Acceptable: <110 mg/dL Borderline high: 110-129 mg/dL High: >or= 130 mg/dL Ages > or = 20 years Optimal: <100 mg/dL Near optimal: 100-129 mg/dL Borderline high: 130-159 mg/dL High: >160 mg/dL Calculated using the Aram LDL-C estimating equation. This equation was implemented on 2024. Prior to this date LDL-C was estimated using the Friedewald equation. Literature References: 1. Expert Panel on Integrated Guidelines for Cardiovascular Health and Risk Reduction in Children and Adolescents. Pediatrics 2011;128:S213 2. NCEP Expert Panel. Circulation 2004;110:227 3. Aram M et al. CHANCE Cardiol. 2019November 28;5(5):540-548. doi: [email or web address] Current Interpretive Data was last revised on 2024. Testing performed by: [address] [address] Non-HDL Cholesterol 177 mg/dL ANNMARIE OREILLY Comment: Interpretive Data Ages < or = [...] Interpretive Data was last revised on 2018. Testing performed by: [address] [address] Chol/HDL ratio 4 ANNMARIE Comment:Testing performed by : [address] [address] Blood 05/16/2025 11:3 3 AM CDT 05/16/2025 4:53 PM CDT Narrative ANNMARIE - 05/16/2025 5:27 PM CDT These lab test should be done fasting. This means do not eat or drink for at least 12 hours prior to getting your blood drawn. Tamiko Lozoya DO LAB BLOOD ORDERABLES Final Result ANNMARIE OREILLY [address] [place] [address] Department [place] [address] * (ABNORMAL) Comprehensive metabolic panel (05/16/2025 11:33 AM CDT) Sodium 141 135 - 145 mmol/L Comment:Testing performed by : [address] [address] Potassium, pl 4.8 3.3 - 4.9 mmol/L CERNER CH Comment:Testing performed by : [address], [address] Chloride 104 97 - 110 mmol/L CERNER CH Comment:Testing performed by : [facility], [address] [place] [address], [address] CO2 28 22 - 32 mmol/L CERNER CH Comment:Testing performed by : [address], [address] Anion gap 9 2 - 15 mmol/L CERNER CH Comment:Testing performed by : [address], [address] BUN 14 6 - 25 mg/dL CERNER CH Comment:Testing performed by : [address] [address] Creatinine 0.62 0.60 - 1.10 mg/dL CERNER CH Comment:Testing performed by : [address] [address] Glucose 120 70 - 199 mg/dL CERNER CH Comment: Interpretive Data Fasting glucose >/= 126 mg/dl is diagnostic for diabetes. Fasting is defined as no caloric intake for at least 8 hours. Fasting glucose between 100 mg/dl to 125 mg/dl is diagnostic of prediabetes. In a patient with classic symptoms of hyperglycemia or hyperglycemic crisis, a random glucose >/= 200 mg/dl is diagnostic for diabetes. In the absence of unequivocal hyperglycemia, results should be confirmed by repeat testing. The classification and Diagnosis of Diabetes Diabetes Care 2021; 46: S19-S40. Current interpretive data was last revised 2022. Testing performed by: [address] [address] Calcium 10.1 8.5 - 10.3 mg/dL CERNER CH Comment:Testing performed by : [address], [address] Bilirubin, total 0.4 0.1 - 1.2 mg/dL CERNER CH Comment:Testing performed by : [facility], [address] [place] [address]., [address] Protein, pl 8.2 6.5 - 8.5 g/dL CERNER CH Comment:Testing performed by : [facility], [address] [place] [address], [address] Albumin 4.3 3.5 - 5.0 g/dL CERNER CH Comment:Testing performed by : [facility], [address] [place] [address]., [address] Alk phos 144(H) 40 - 130 Units/L CERNER CH Comment:Testing performed by : [facility], [address] [place] [address]., [address] ALT 55(H) 7 - 45 Units/L CERNER CH Comment:Testing performed by : [facility], [address] [place] [address], [address] AST 35 10 - 45 Units/L CERNER CH Comment:Testing performed by : [address] [address] Blood 05/16/2025 11:3 3 AM CDT 05/16/2025 4:53 PM CDT Tamiko Lozoya DO LAB BLOOD ORDERABLES Final Result [address] Department [place] [address] * (ABNORMAL) POCT hemoglobin A1c (05/16/2025 11:00 AM CDT) [facility] Hemoglobin A1C, POC 9.9(A) 4.0 - 5.6 % Blood 05/16/2025 11:0 0 AM CDT us Tamiko Lozoya DO POINT OF CARE TEST ORDERABL ES Final Result * (ABNORMAL) RetinaVue Scanner - OU - Both Eyes (05/16/2025) Anatomical Region Laterality Modality Head Fundus Photograp hy 05/16/2025 Tamiko Lozoya DO OPHTH PHOTOGRAPHY Final Res ult * SCAN - RADIOLOGY/IMAGING (04/29/2025) Anatomical Region Laterality Modality Other Result [facility] Lamont Pete MD Final R esult * SCAN - LABS (04/29/2025) Lamont Pete MD Edited Result - Final * SCAN - RADIOLOGY/IMAGING (04/18/2025) Anatomical Region Laterality Modality Other Lamont Pete MD Final R esult * Pap with reflex to High Risk HPV (10/06/2022 2:45 PM HISTORICAL INTERPRETER) CLINICAL INFORMATION: Sharita Pope Comment:Routine exam LMP [...] has been evaluated with computer assisted technology. Beef Cattle Farmer Filippo Hagan Comment: DDS, CT(ASCP) CT screening location: [place] [address] [place] [address] Comment Sharita Pope Comment: EXPLANATORY NOTE: The [...] clinical information. Thin prep 10/06/2022 2:45 PM HISTORICAL INTERPRETER 10/07/2022 3:48 AM HISTORICAL INTERPRETER Result [facility] Cande Farooq MD LAB CYTOLOGY ORDERABLES F inal Result [facility] [address] [place] [address] * Hepatitis panel, acute (10/06/2022 2:04 PM HISTORICAL INTERPRETER) Hep A IgM NON-REACTI VE NON-REACT AANM [facility] Comment: For additional information, please refer to http://HungerTime.[employer]/faq/QDH520 (This link is being provided for informational/ [...] a test for HCV RNA (test code 27119) is suggested. For additional information please refer to http://HungerTime.[employer]/faq/OAL01q9 (This link is being provided for informational/ educational purposes only.) Blood 10/06/2022 2:04 PM HISTORICAL INTERPRETER 10/06/2022 2:06 PM HISTORICAL INTERPRETER Narrative [facility] - 10/07/2022 3:33 PM HISTORICAL INTERPRETER PATIENT UNABLE TO VOID; ADVISED TO RETURN FOR COLLECTION. Cande Farooq MD LAB MICROBIOLOGY - GENERA L ORDERABLES Final Result [facility] [address] [address] [id number] * HM DIABETES FOOT EXAM (12/03/2019) Diabetic Foot Exam Normal Historical Provider HEALTH MAINTENANCE Final Result from Last 3 Months or Most Recently Relevant to Health Maintenance Insurance [employer] [place] [id number] [facility] [place] [place] [address] [place] [address] Member Subscriber Plan / Payer (Ef fective 2021-Present) Name:Hectoryinka Melyssa Osman Relation to Subscriber:Self Name:Melyssa Melton Osman Payer ID:[id number] (NAIC) Group ID:Not on file Type:MEDICAID RISK OTHER Address: ATTN: CLAIMS DEPT [address] [place], [place] [id number] Care Teams Shaker Repairer Relationship Specialty Start Date End Date Lamont Pete MD PCP - General 10/28/16 [place] [address] [place] [address] Consulting Physician Obstetrics and Gynecology 08/24/21
--- OUTSIDE RECORDS SUMMARY | 2025-06-25 08:14 | XMS_ITS | Encounter Summary ---
Author Organization [facility] Address [address] [place] [address] Care Team Providers Care Digital Print Operator Name Role Phone Lamont Pete MD Primary Care Provider Cande Farooq MD Unavailable [phone] Reason for Referral * Consultation (Routine) - Authorized Specialty Diagnoses / Procedures Referred By Contpedro t Referred To Contact Gastroenterology Diagnoses Lower abdominal pain Lamont Pete MD [address] [place] [address] [address] [place] [address] Phone: tel: fax: [facility] Gastroenterology at [address] [place] [address] Phone: tel: fax: Referral ID Status Reason Start Date Expiration Date Visits Requested Visits Authorized [id number] Authorized Specialty Services Required 07/24/2026 1 1 Question Answer Please select the performing region: [facility] [[id number]] Please select the performing department: [facility] [[phone]] # of visits: 1 ITAL UNIT CLERK Encounter Details Date Type Department Care Team (Late st Contact Info) Description 06/24/2025 Orders Only [facility] Primary Care at [facility] [address] [facility] [address] [place] [address] Lamont Pete MD [address] [facility] [address] [place] [address] [place] [id number] Lower abdominal pain (Primary Dx) Social History Tobacco Use Types Packs/Day Years [...] on file Legal Sex Female 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 Gender Identity Not on file Sexual Orientation Not on file documented as of this encounter Plan of Treatment Scheduled Referrals Name Type Priority Associated Diagnoses Order Schedule Ambulatory referral to Gastroenterology Outpatient Referral Routine Lower abdominal pain Expected: 06/24/2025 (Approximate), Expires: 06/24/2026 documented as of this encounter Visit Diagnoses Diagnosis Lower abdominal pain- Primary Abdominal pain, other specified site documented in this encounter Care Teams Digital Print Operator Relationship Specialty Start Date End Date Lamont Pete MD PCP - General 10/28/16 [place] [address] [place] [address] Consulting Physician Obstetrics and Gynecology 08/24/21 documented as of this encounter
[2025-06-25 08:18] LABS: Hematocrit 42.9 % (37.0-47.0); Hemoglobin 14.3 g/dL (12.0-15.0); Immature Granulocyte Percent A 0.5 % (0-0.5); Lymphocytes Absolute Auto 2.61 K/mm3 (0.9-3.2); Mean Corpuscular HGB Conc 33.3 g/dl (32-36); Mean Corpuscular Hemoglobin 28.7 pg (26-34); Mean Corpuscular Volume 86.0 fl (80-100); Nucleated Red Blood Cells Absolute Auto 0.000 K/mm3 (0.0-0.012); Nucleated Red Blood Cells Perc 0.0 % (0.0-0.2); Platelet Count Result 402 k/mm3 (150-375); Red Blood Count 4.99 M/mm3 (4.2-5.4); White Blood Count 13.9 K/mm3 (4.5-10.0)
[2025-06-25 08:34] LABS: Add Urine Microscopic? YES; Appearance Urine Cloudy (Clear); Glucose Urine UA 2+ mg/dL (Negative); Leukocyte Esterase Ur 2+ LEU/UL (Negative); Need Manual Microscopic Reviewed; Nitrate Urine Positive (Negative); Non Pathogenic Casts 0-2; Specific Grav Ur 1.018 (1.001-1.035)
[2025-06-25 08:49] LABS: Alanine Aminotransferase 43 U/L (6-35); Albumin Level 4.5 g/dL (3.5-5.1); Alkaline Phosphatase 80 U/L (38-126); Anion Gap 9 mmol/L (4-12); Aspartate Amino Transferase 40 U/L (14-36); Bilirubin,Total 0.4 mg/dL (0.2-1.3); Blood Urea Nitrogen 13 mg/dL (7-17); Calcium 10.1 mg/dL (8.4-10.2); Carbon Dioxide 27 mmol/L (22-30); Chloride 105 mmol/L (98-107); Estimated CRCL calculation 118 ml/min; Estimated Glomerular Filt Rate > 60; Glucose 125 mg/dL (65-110); Lipase 20 U/L (23-300); Potassium 4.1 mmol/L (3.4-5.0); Sodium 141 mmol/L (137-145); Total Protein 8.2 g/dL (6.3-8.2)
[2025-06-25] MEDS: ACETAMINOPHEN 500 MG TABLET 1000 MG PO (08:52)
[2025-06-25 09:00] LABS: Influenza A QL RT-PCR Negative (Negative); Influenza B QL RT-PCR Negative (Negative); RSV RNA, RT-PCR Negative (Negative); SARS-CoV-2 RNA PCR Negative (Negative)
--- NOTE | 2025-06-25 09:15 | ED.GENADULT ---
HPI - General Adult General Chief complaint: Recheck/Abnormal Lab/Rx Stated complaint: high blood sugar Time Seen by Provider: 06/25/25 07:16 History of Present Illness HPI narrative: This is a 30-year-old female with history of type 1 diabetes presenting for elevated blood sugars. Patient says that she has been taking her insulin as directed. She did get recently get over a URI. She denies nausea vomiting or abdominal pain. She denies fevers. Denies chest pain difficulty breathing. She notes changes to her urine smell but does not have dysuria urgency or frequency. Related Data Home Medications ?Medication ?Instructions ?Recorded ?Confirmed ?Last Taken ?Type ondansetron HCl 4 mg tablet 4 mg PO Q8H 04/18/25 04/29/25 04/18/25 History Allergies Allergy/AdvReac Type Severity Reaction Status Date / Time No Known Allergies Allergy Verified 06/25/25 07:17 [facility] Past Medical History Medical History Diabetes type 1 Family History Family History Grandparent Hypertension Breast cancer Social History Social History Smoking packs per day: 0.5 Smoking cigarettes per day: 10.0 Smoking status: Former smoker Second hand tobacco smoke exposure: Yes Alcohol intake: never Drinks per week: 1 Substance use: never Lack of Transportation: No Lack of Food: Never True Current Housing: I Have Housing Concerned About Future Housing: No Difficulty Paying Gas/Electric Bills: No Difficulty Paying for Meds: YES Currently Unemployed: No Education: High School Diploma/GED Difficulty w/ Childcare or Family Care: No Spiritual care concerns: No Exam Narrative: APPEARANCE: No apparent distress. Head: atraumatic. EYES: EOMI, NOSE: Atraumatic NECK: Trachea midline RESPIRATORY: No increased rate of breathing CARDIOVASCULAR: RRR, ABDOMINAL: Non-distended MUSCULOSKELETAl: No obvious deformities NEURO: Alert. Moving 4/4 extremities SKIN:: Warm, dry. Normal color PSYCHIATRIC: Normal affect Course Vital Signs Vital signs: Vital Signs Temperature 98.3 F 06/25/25 07:11 Pulse Rate 107 H 06/25/25 07:11 Respiratory Rate 20 06/25/25 07:11 Blood Pressure 144/105 H 06/25/25 07:11 Pulse Oximetry 100 06/25/25 07:11 Oxygen Delivery Room Air 06/25/25 07:11 Temperature 98.5 F 06/25/25 08:09 Pulse Rate 107 H 06/25/25 07:11 Respiratory Rate 20 06/25/25 07:11 Blood Pressure 144/105 H 06/25/25 07:11 Pulse Oximetry 100 06/25/25 07:11 Oxygen Delivery Room Air 06/25/25 07:11 Medical Decision Making MDM Narrative Medical decision making narrative: -Course: 30-year-old female history of type 1 diabetes and elevated blood sugars. Sections workup DKA workup was ordered. Patient found have urinary tract infection. PH 7.32 which is driven by a CO2 of 51.2. Bicarb is normal at 26.3. She does not have anion gap or any evidence of DKA at this time. Patient was given fluids. Her UTI will be treated. She follow-up with primary care physician as needed. -DDX includes but is not limited to: DKA, viral syndrome, pneumonia, UTI Vital Signs Vital Signs: Vital Signs Temperature 98.3 F 06/25/25 07:11 Pulse Rate 107 H 06/25/25 07:11 Respiratory Rate 20 06/25/25 07:11 Blood Pressure 144/105 H 06/25/25 07:11 Pulse Oximetry 100 06/25/25 07:11 Oxygen Delivery Room Air 06/25/25 07:11 Temperature 98.5 F 06/25/25 08:09 Pulse Rate 107 H 06/25/25 07:11 Respiratory Rate 20 06/25/25 07:11 Blood Pressure 144/105 H 06/25/25 07:11 Pulse Oximetry 100 06/25/25 07:11 Oxygen Delivery Room Air 06/25/25 07:11 Lab Data 06/25/25 08:01 06/25/25 08:00 Labs: Lab Results 06/25/25 06/25/25 06/25/25 Range/Units 07:13 08:00 08:01 WBC 13.9 H (4.5-10.0) K/mm3 RBC 4.99 (4.2-5.4) M/mm3 Hgb 14.3 (12.0-15.0) g/dL Hct 42.9 (37.0-47.0) % MCV 86.0 (80-100) fl MCH 28.7 (26-34) pg MCHC 33.3 (32-36) g/dl RDW 12.5 (11.5-14.5) % Plt Count 402 H (150-375) k/mm3 MPV 9.0 (7.4-10.4) fl Immature Gran % (Auto) 0.5 (0-0.5) % Neut % (Auto) 75.8 H (45.5-73.1) % Lymph % (Auto) 18.7 (18.3-44.2) % [place] % (Auto) 4.1 (2.6-8.5) % Eos % (Auto) 0.4 (0-4.4) % Baso % (Auto) 0.5 (0.2-1.2) % Lymph # (Auto) 2.61 (0.9-3.2) K/mm3 [place] # (Auto) 0.6 (0.1-0.6) K/mm3 Eos # (Auto) 0.1 (0-0.3) K/mm3 Baso # (Auto) 0.1 (0.0-0.1) K/mm3 Abs Immat Gran (auto) 0.07 H (0.00-0.031) K/mm3 Absolute Neuts (auto) 10.6 H (1.3-6.7) K/mm3 Absolute Nucleated RBC 0.000 (0.0-0.012) K/mm3 Nucleated RBC % 0.0 (0.0-0.2) % Sodium 141 Cancelled (137-145) mmol/L Potassium 4.1 Cancelled (3.4-5.0) mmol/L Chloride 105 Cancelled (98-107) mmol/L Carbon Dioxide 27 Cancelled (22-30) mmol/L Anion Gap 9 Cancelled (4-12) mmol/L BUN 13 D Cancelled (7-17) mg/dL Creatinine 0.62 L Cancelled (0.7-1.0) mg/dL Estim Creat Clear Calc 118 Cancelled ml/min Estimated GFR > 60 Cancelled (59 - ) Glucose 125 H Cancelled (65-110) mg/dL POC Capillary Glucose 184 H (65-105) mg/dl Hemoglobin A1c Pending Calcium 10.1 Cancelled (8.4-10.2) mg/dL Total Bilirubin 0.4 Cancelled (0.2-1.3) mg/dL AST 40 H Cancelled (14-36) U/L ALT 43 H Cancelled (6-35) U/L Alkaline Phosphatase 80 Cancelled (38-126) U/L Total Protein 8.2 Cancelled (6.3-8.2) g/dL Albumin 4.5 Cancelled (3.5-5.1) g/dL Lipase 20 L (23-300) U/L Urine Color Yellow (Yellow) Urine Appearance Cloudy H (Clear) Urine pH 5.0 (5.0-9.0) Ur Specific [place] 1.018 (1.001-1.035) Urine Protein Trace (Negative) mg/dL Urine Glucose (UA) 2+ H (Negative) mg/dL Urine Ketones Negative (Negative) mg/dL Ur Blood (Man) 3+ H (Negative) Urine Nitrate Positive H (Negative) Urine Bilirubin Negative (Negative) Urine Urobilinogen 0.2 (<2.0) mg/dL Add Ur Microanalysis Reviewed Leukocyte Esterase Rfl 2+ H (Negative) MATTHEW/UL Urine RBC 6-10 H (0-2) /hpf Urine WBC 51-100 H (0-3) /hpf Ur Squamous Epith Cells Moderate (Few) /hpf Urine Bacteria 4+ H /hpf Urine Casts 0-2 POC Urine HCG, Qual (Negative) Influenza A (RT-PCR) Negative (Negative) Influenza B (RT-PCR) Negative (Negative) RSV (RT-PCR) Negative (Negative) SARS-CoV-2 RNA (RT-PCR) Negative (Negative) 06/25/25 Range/Units 08:02 WBC (4.5-10.0) K/mm3 RBC (4.2-5.4) M/mm3 Hgb (12.0-15.0) g/dL Hct (37.0-47.0) % MCV (80-100) fl MCH (26-34) pg MCHC (32-36) g/dl RDW (11.5-14.5) % Plt Count (150-375) k/mm3 MPV (7.4-10.4) fl Immature Gran % (Auto) (0-0.5) % Neut % (Auto) (45.5-73.1) % Lymph % (Auto) (18.3-44.2) % [place] % (Auto) (2.6-8.5) % Eos % (Auto) (0-4.4) % Baso % (Auto) (0.2-1.2) % Lymph # (Auto) (0.9-3.2) K/mm3 [place] # (Auto) (0.1-0.6) K/mm3 Eos # (Auto) (0-0.3) K/mm3 Baso # (Auto) (0.0-0.1) K/mm3 Abs Immat Gran (auto) (0.00-0.031) K/mm3 Absolute Neuts (auto) (1.3-6.7) K/mm3 Absolute Nucleated RBC (0.0-0.012) K/mm3 Nucleated RBC % (0.0-0.2) % Sodium (137-145) mmol/L Potassium (3.4-5.0) mmol/L Chloride (98-107) mmol/L Carbon Dioxide (22-30) mmol/L Anion Gap (4-12) mmol/L BUN (7-17) mg/dL Creatinine (0.7-1.0) mg/dL Estim Creat Clear Calc ml/min Estimated GFR (59 - ) Glucose (65-110) mg/dL POC Capillary Glucose (65-105) mg/dl Hemoglobin A1c Calcium (8.4-10.2) mg/dL Total Bilirubin (0.2-1.3) mg/dL AST (14-36) U/L ALT (6-35) U/L Alkaline Phosphatase (38-126) U/L Total Protein (6.3-8.2) g/dL Albumin (3.5-5.1) g/dL Lipase (23-300) U/L Urine Color (Yellow) Urine Appearance (Clear) Urine pH (5.0-9.0) Ur Specific [place] (1.001-1.035) Urine Protein (Negative) mg/dL Urine Glucose (UA) (Negative) mg/dL Urine Ketones (Negative) mg/dL Ur Blood (Man) (Negative) Urine Nitrate (Negative) Urine Bilirubin (Negative) Urine Urobilinogen (<2.0) mg/dL Add Ur Microanalysis Leukocyte Esterase Rfl (Negative) MATTHEW/UL Urine RBC (0-2) /hpf Urine WBC (0-3) /hpf Ur Squamous Epith Cells (Few) /hpf Urine Bacteria /hpf Urine Casts POC Urine HCG, Qual Negative (Negative) Influenza A (RT-PCR) (Negative) Influenza B (RT-PCR) (Negative) RSV (RT-PCR) (Negative) SARS-CoV-2 RNA (RT-PCR) (Negative) ABG Data ABG results: 06/25/25 08:00 VBG pH 7.329 VBG pCO2 51.2 H VBG pO2 30.4 L VBG HCO3 26.3 O2 Delivery Device Room air FiO2 21 Discharge Plan Discharge Clinical Impression: UTI (urinary tract infection), Diabetes mellitus with hyperglycemia Patient Disposition: Home Condition: Stable Instructions: Antibiotic Form, Urinary Tract Infection in Women (DC) Additional Instructions: You were seen in the emergency department for elevated blood sugars. Please continue taking your insulin as directed. Please complete a course of antibiotics for urinary tract infection. You feel your condition is getting worse please return to the ED for re-evaluation. Patient Language: Greek Prescriptions: New cefdinir 300 mg capsule 300 mg PO Q12H Qty: 14 0RF No Action ondansetron HCl 4 mg tablet 4 mg PO Q8H Patient Comments: for 4 days (DME) blood-glucose meter [OneTouch Verio Flex meter] [facility] [place] Qty: 1 0RF Rx Instructions: May substitute to in-stock meter and/or covered by insurance. Use As Directed (DME) OneTouch Verio test strips Strip Qty: 1 0RF Rx Instructions: May substitute to in-stock and/or covered by insurance strips. Use As Directed (DME) pen needle, diabetic 32 gauge x 5/32 Needle Qty: 1 0RF Patient Comments: ran out of insulin supplies Rx Instructions: As Directed (DME) lancets [OneTouch Delica Plus Lancet] 30 gauge misc Qty: 1 0RF Rx Instructions: May substitute to in-stock and/or covered by insurance lancets. Use As Directed (DME) insulin syringe,safety needle 0.5 mL 31 gauge x 5/16 Syringe Qty: 1 0RF Patient Comments: ran out of needle supplies Rx Instructions: As Directed Follow-up/Referrals: Juan R,Lamont Jordan MD [Primary Care Provider] - 1 Week
[2025-06-25 09:55] VITALS: BP 157/104; PULSE 100; RESP 17; O2SAT 97
[2025-06-25 11:29] VITALS: BP 159/107; PULSE 98; RESP 18; O2SAT 98
[2025-06-25] MEDS: cefTRIAXone 1 GM in SODIUM CHLORIDE 0.9% IV 50 ML 100 ML IVPB (14:23)
[2025-06-25 14:34] VITALS: BP 137/90; PULSE 97; RESP 15; O2SAT 99
[2025-06-26 13:52] LABS: Hemoglobin A1C 8.2 % (<5.7)
== END 2025-06-25 14:36 | disposition home or self-care (01) ==
PROVIDERS: Emergency Provider Emergency Medicine; PCP Internal Medicine
DX: E10.65 Type 1 diabetes mellitus with hyperglycemia (principal); N39.0 Urinary tract infection, site not specified; Z20.822 Contact with and (suspected) exposure to COVID-19; Z87.891 Personal history of nicotine dependence; R94.31 Abnormal electrocardiogram [ECG] [EKG]
CPT/HCPCS: 36415; 71045; 80053; 81001; 81025; 82803; 82948; 83036; 83690; 85025; 87637; 93005; 96361; 96365; 99284; A9270; J0696; J7120